=== PATIENT | female | born 1950 | race African-American/Black ===

== ENCOUNTER 2017-05-03 23:12 | Inpatient (IN) ==
[2017-05-04 01:24] LABS: Basophils % 0.4 % (0.0-0.8); Eosinophils # 0.2 10*3/uL (0.0-0.87); Eosinophils % 2.9 % (0.00-10.9); Hematocrit 35.6 VOL% (35.7-47.0); Hemoglobin 12.6 GM/DL (12.0-16.0); Immature Granulocytes % 0.5 %; Immature Granulocytes Absolute 0.04 #; Lymphocytes % 13.1 % (21.3-54.2); Mean Corpuscular HGB Conc 35.4 GM/DL (32-36); Mean Corpuscular Hemoglobin 33 PG (27-34); Mean Platelet Volume 11.7 FL (9.6-12.0); Monocytes # 1.1 10*3/uL (0.11-0.8); Monocytes % 14.2 % (1.7-12.7); Neutrophils # 5.3 10*3/uL (1.4-7.4); Neutrophils % 68.9 % (38.7-73.9); Platelet Count 103 T/CUMM (130-400); Red Blood Count 3.83 MC/CUMM (3.8-5.5); Red Cell Distribution Width 16.7 % (9.3-17.3); White Blood Count 7.7 T/CUMM (4-12)
[2017-05-04 01:47] LABS: Calcium 8.5 MG/DL (8.5-10.1); Magnesium 2.6 MG/DL (1.8-2.4); Osmolality,Calculated 276.8 MOS/KG (273-304); Potassium 3.1 MMOL/L (3.5-5.1)
[2017-05-04] MEDS ORDERED: CLINDAMYCIN INJ 900 MG in PREMIX 1 EACH IV STA (02:18)
[2017-05-04] MEDS ORDERED: LEVOFLOXACIN INJ 250 MG in PREMIX 1 EACH IV STA (02:18)
--- NOTE | 2017-05-04 02:19 | Emergency Department Note ---
I, Tina Puga, am scribing for, and in the presence of, Luis Diaz MD 23:51. IJoe Hans, MD, personally performed the services described in this documentation, ascribed by Tina Puga in my presence, and it is both accurate and complete . Arrival - Arrival Chief Complaint: Shortness of Breath ED Nursing Triage Note: Patient complains of shortness of breath and swelling that has been going on all days. States that she feels like she can't catch her breath. Patient is a dialysis patient and is scheduled for dialysis tomorrow morning. Patient states that she does not feel like dialysis is helping. O2 saturation 100% on room air. History of CAD, [place], HTN, high cholesterol and renal failure. Mode of Arrival: Stretcher Limitations: No Limitations Source: Patient, Family - History of Present Illness HPI Narrative: Pt is a 66 y/o female who ca me to ED by EMS with c/o SOB and swelling in lower extremities that has been ongoing for a while. Pt states that she feels like she can't catch her breath, has orthopnea, ears itching, bilateral hand rash that itching (after having blood transfusion), and little output. Family reports pt eating dirt and is a smoker. Patient is a dialysis patient of 3 years, and is scheduled for dialysis tomorrow morning. Patient states that she does not feel like dialysis is helping. O2 saturation 100% on room air. History of CAD, [place], HTN, high cholesterol and renal failure. Family reports last hospitalization for fluid overload was in 2016. Onset (ago): unknown Consistency: constant Severity: moderate Severity scale (1-10): 6 Quality: aching, fullness Date of Last Menstrual Period: menopause Allergies/Adverse Reactions: Allergies Allergy/AdvReac Type Severity Reaction Status Date / Time No Known Allergies Allergy Verified 12/04/16 06:17 Home Medications: Home Medications Medication Instructions Recorded Confirmed Type RX: Amitriptyline HCl 50 mg PO BEDTIME 09/25/15 12/04/16 History RX: Cetirizine HCl [Cetirizine Tab] 10 mg PO DAILY 09/25/15 12/04/16 History RX: Hydrocodone/Acetaminophen 1 each PO Q6HR PRN 09/25/15 12/04/16 History [Hydrocodon-Acetaminophn 10-325] RX: Insulin Aspart Prot/Asp 70/30 20 unit SUBCUT AC SUPPER 09/25/15 12/04/16 History [NovoLOG Mix 70/30] RX: Insulin Aspart Prot/Asp 70/30 40 unit SUBCUT AC BREAKFAST 09/25/15 12/04/16 History [NovoLOG Mix 70/30] RX: Levothyroxine Tab [Synthroid 25 mcg PO DAILY 09/25/15 12/04/16 History Tab] RX: Lubiprostone [Amitiza] 8 mcg PO BID 09/25/15 12/04/16 History RX: Aspirin [Ecotrin] 81 mg PO DAILY 01/22/16 12/04/16 History RX: Albuterol Sulfate [Ventolin 2 puff INH Q4-6H 03/03/16 12/04/16 History HFA] RX: Simvastatin [Zocor] 10 mg PO DAILY 03/03/16 12/04/16 History Review of System - Review of System 12 point system: reviewed and no additional remarkable complaints except as stated - Review of System Constitutional: Present: other (eats dirt). Absent: fever Head/Ears/Nose/Throat: Present: other (ears itching) Respiratory: Present: respiratory distress Cardiovascular: Present: orthopnea, edema (in both legs, abdomen, and back). Absent: chest pain Gastrointestinal: Absent: abdominal pain, nausea, vomiting Genitourinary female: Absent: dysuria Musculoskeletal: Absent: arm pain, neck pain Skin: Present: rash (both hands) Neurological: Absent: headache Medical,Surgical,& Family Hx - Medical History Cardio: History of: CAD, Hypertension, [place] (1997) Neurology: History of: Cerebrovascular Accident (1998) No history of: Seizures HEENT: History of: Eye Problem (Glasses) No history of: Ear Problem, Dental Problems, HEENT Problems Endocrine: History of: Diabetes Mellitus (IDDM), Thyroid Disorder Rheumatology: History of;: Rheumatoid Arthritis Respiratory: History of: Obstructive Sleep Apnea (CPAP), Respiratory Problems ( SHORTNESS OF BREATH; ?No Flu Vac per daughter) Renal: History of: Dialysis (T TH SAT FRESINUS) Gastrointestinal: History of: GI Problems (CONSTIPATION) Hematology: No history of: Blood Transfusion Reaction (No Transfusions) Other: History of: Miscellaneous Medical Problems (LEFT GRAFT) No history of: Anesthesia Reactions, Cancer - Surgical History HEENT Surgeries: Surgical HX of: Eye Surgery (LASER BILATERAL) Abdominal Surgeries: Surgical HX of: Abdominal Surgery Reproductive Surgeries: Surgical HX of;: Breast Surgery (BX) - Family History Family History: Reports;: Family Diabetes, Family Heart Disease - Social History Smoking Status: Current every day smoker Frequency of Alcohol Use: None Type of Drug Use: None Marital Status: Single Exam Vital Signs: Vital Signs Temperature 97.2 F L 05/03/17 23:12 Pulse Rate 77 05/03/17 23:12 Respiratory Rate 19 05/03/17 23:12 Blood Pressure 139/56 05/03/17 23:12 O2 Sat by Pulse Oximetry 100 05/03/17 23:12 - General General appearance: alert, in no apparent distress - Head Head exam: Present: atraumatic, normocephalic - Eye Eye exam: Present: PERRL, EOMI - ENT ENT exam: Present: mucous membranes moist. Absent: mucous membranes dry - Neck Neck exam: Present: full ROM, other (jugular venous stasis) - Chest Chest inspection: Present: symmetric chest wall rise. Absent: tenderness - Respiratory Respiratory exam: Present: normal lung sounds bilaterally. Absent: accessory muscle use, respiratory distress - Cardiovascular Cardiovascular exam: Present: regular rate, normal rhythm, normal heart sounds - Abdominal Exam Abdominal exam: Present: ascites, other (edema to hips). Absent: tenderness, guarding, rebound - Extremities Exam Extremities exam: Present: full ROM. Absent: tenderness - Neurological Exam Neurological exam: Present: alert, oriented X3, CN II-XII intact. Absent: motor sensory deficit - Psychiatric Psychiatric exam: Present: normal affect, normal mood - Skin Skin exam: Present: warm, dry. Absent: intact (calcification to skin but no infected skin or lesions) Course Course Narrative: The patient was evaluated in the ER with lab work as well as chest x-ray and CT chest PE protocol was also done because of elevated d-dimer. No PEs were seen. Patient had some infiltrates in the right lower lobe and also some evidence of volume overload and she was discussed with the hospitalist for admission for symptomatic volume overload and pneumonia. She was treated with Levaquin and clindamycin in the ER in the meantime. Results - Labs CBC & BMP: 05/04/17 00:53 05/04/17 00:53 Lab Results: I have reviewed the patients labs Labs: Laboratory Tests 05/04/17 05/04/17 05/04/17 00:53 00:53 00:53 WBC 7.7 RBC 3.83 Hgb 12.6 Hct 35.6 L Plt Count 103 L Lymph % (Auto) 13.1 L [place] % (Auto) 14.2 H Lymph # (Auto) 1.0 L [place] # (Auto) 1.1 H D-Dimer, Quantitative 1.5 Sodium 130 L Potassium 3.1 L Chloride 93 L Carbon Dioxide 28 BUN 46 H Creatinine 5.50 H GFR Calculation 8 Glucose 188 H Magnesium 2.6 H Disposition Clinical Impression: Community acquired pneumonia Case discussed with: patient, patient's family Disposition: Still a Patient Condition: Stable Time of Disposition: 02:19
[2017-05-04] MEDS ORDERED: CLINDAMYCIN INJ 50 ML IV ONE (02:49)
--- NOTE | 2017-05-04 04:12 | Hospitalist History & Physical ---
Assessment and Plan - Time spent with patient Time spent with patient: Greater than 30 minutes (1) Community acquired pneumonia Status: Acute Assessment and plan: CT chest PE protocol showed right lower lobe consolidation We will draw blood cultures Patient received Cleocin and Levaquin in the ER We will start patient on Levaquin daily Current Visit: Yes (2) Diabetes mellitus Status: Chronic Assessment and plan: We will draw a Hgb A1c Accu-Cheks before meals and at bedtime with sliding scale insulin Consult dietary for diet education Current Visit: No (3) End stage renal disease on dialysis Status: Acute Assessment and plan: Consult nephrology for dialysis regimen Current Visit: No (4) Hypertension Status: Acute Assessment and plan: Continue home medication regimen Current Visit: No History of Present Illness Chief complaint: Shortness of breath History of present illness: Called to the ER for Ms. De Dios who is a 66 year old female that presents to the emergency department complaining of leg swelling and shortness of breath that started 2 days ago and got worse this afternoon. She also complains of chest pain that started approximately 1 day ago that waxes and wanes. She says that sitting down makes the pain better and walking makes the pain worse. She admits to productive cough with yellow greenish sputum and chills. She denies nausea, vomiting, diarrhea. Upon arrival to the ER she was 100% oxygen saturation on room air and in no obvious distress. She is a dialysis patient with a Wednesday schedule but is unsure who her rn orthopaedic is. The last time she dialyzed was last Wednesday and is unsure of how much fluid was removed. She says for the past week she feels like dialysis has not helped her and she has accumulated more fluid than what has been removed. She had a positive d-dimer and therefore a CT chest with PE protocol was performed which showed right lower lobe consolidation. Patient was given Levaquin and Cleocin in the emergency room. Chest x-ray showed severe cardiomegaly with consolidation to the right lower lobe and calcified hilar or mediastinal lymph nodes that are unchanged compared to a CXR in 2016. She has a history of end-stage renal disease, AL, CVA, hypertension, diabetes, hypothyroidism, COPD, arthritis, pica (dirt), and multiple dialysis grafts placement. She admits to taking all of her medicines as directed but her daughter says she does not like to take medicine and does not take her medications as prescribed. Upon entering the room patient is sitting up in the bed eating [employer] pancakes and sausage with syrup. When asked about her diet she says the only thing she eats is [employer]. We will consult dietary to reiterate the importance of a controlled diet. In the meantime she will be admitted with nephrology consulted for dialysis regimen. Home Medications Medication Instructions Recorded Confirmed Type Amitriptyline HCl 50 mg PO BEDTIME 09/25/15 12/04/16 History Cetirizine HCl [Cetirizine Tab] 10 mg PO DAILY 09/25/15 12/04/16 History Hydrocodone/Acetaminophen 1 each PO Q6HR PRN 09/25/15 12/04/16 History [Hydrocodon-Acetaminophn 10-325] Insulin Aspart Prot/Asp 70/30 20 unit SUBCUT AC SUPPER 09/25/15 12/04/16 History [NovoLOG Mix 70/30] Insulin Aspart Prot/Asp 70/30 40 unit SUBCUT AC BREAKFAST 09/25/15 12/04/16 History [NovoLOG Mix 70/30] Levothyroxine Tab [Synthroid Tab] 25 mcg PO DAILY 09/25/15 12/04/16 History Lubiprostone [Amitiza] 8 mcg PO BID 09/25/15 12/04/16 History Aspirin [Ecotrin] 81 mg PO DAILY 01/22/16 12/04/16 History Albuterol Sulfate [Ventolin HFA] 2 puff INH Q4-6H 03/03/16 12/04/16 History Simvastatin [Zocor] 10 mg PO DAILY 03/03/16 12/04/16 History Allergies Allergy/AdvReac Type Severity Reaction Status Date / Time No Known Allergies Allergy Verified 12/04/16 06:17 Medical,Surgical,& Family Hx - Medical History Cardio: History of: CAD, Hypertension, [place] (1997) Neurology: History of: Cerebrovascular Accident (1998) No history of: Seizures HEENT: History of: Eye Problem (Glasses) No history of: Ear Problem, Dental Problems, HEENT Problems Endocrine: History of: Diabetes Mellitus (IDDM), Thyroid Disorder Rheumatology: History of;: Rheumatoid Arthritis Respiratory: History of: COPD, Obstructive Sleep Apnea (CPAP), Respiratory Problems (SHORTNESS OF BREATH; ?No Flu Vac per daughter) Renal: History of: Dialysis (T TH SAT FRESINUS) Genitourinary: No history of: Problems Gastrointestinal: History of: GI Problems (CONSTIPATION) No history of: Liver Problems Hematology: No history of: Blood Transfusion Reaction (No Transfusions) Other: History of: Miscellaneous Medical Problems (LEFT GRAFT) No history of: Anesthesia Reactions, Cancer - Surgical History HEENT Surgeries: Surgical HX of: Eye Surgery (LASER BILATERAL) Abdominal Surgeries: Surgical HX of: Abdominal Surgery Reproductive Surgeries: Surgical HX of;: Breast Surgery (BX) - Family History Family History: Reports;: Family Cancer (Siblings), Family Diabetes (Mom and siblings), Family Heart Disease (father), Additional Family History (Renal diseasesibling) - Social History Smoking Status: Current every day smoker (Half a pack per day) Frequency of Alcohol Use: None Type of Drug Use: None - Constitutional Constitutional: Absent: chills, fatigue, fever(s), frequent falls, weakness - EENT Nose, mouth and throat: Absent: dysphagia - Cardiovascular Cardiovascular: Present: chest pain with activity, dyspnea, edema. Absent: chest pain at rest - Respiratory Respiratory: Present: cough, dyspnea - Gastrointestinal Gastrointestinal: Absent: abdominal pain, constipation, diarrhea, nausea, vomiting - Musculoskeletal Musculoskeletal: Absent: muscle weakness Exam - Constitutional Vitals: Period Temp Pulse Resp BP Sys/Herrera Pulse Ox Last 24 Hr 97.2 F-97.2 F 77-77 19-19 139-139/54-56 100 General appearance: normal weight, no acute distress - Head Head exam: Present: normal inspection, normocephalic - Eye Eye exam: Present: EOMI, conjunctival injection Pupils: Present: NEIL, normal accommodation - ENT ENT exam: Present: normal exam, normal external ear exam - Neck Neck exam: Present: normal inspection - Respiratory Respiratory exam: Present: rhonchi (Right lower lobe otherwise clear to auscultation. Respirations even and unlabored. Symmetrical rise and fall of chest.). Absent: accessory muscle use, chest wall tenderness - Cardiovascular Cardiovascular exam: Present: regular rate and rhythm - GI/Abdominal GI/Abdominal exam: Present: normal bowel sounds, soft. Absent: firm, tenderness - Extremities Exam Extremities exam: Present: normal inspection, normal capillary refill, full ROM , edema (Bilateral thighs) - Back Exam Back exam: Present: normal inspection - Neurological Exam Neurological exam: Present: alert, oriented X3 (Answers questions appropriately. Makes good eye contact.) - Psychiatric Psychiatric exam: Present: other (Aggravated) - Skin Skin exam: Present: normal color, warm, dry, intact (Diffuse lesions. Left upper arm graft with thrill noted.) Results - Labs CBC & BMP: 05/04/17 00:53 05/04/17 00:53 Lab Results: I have reviewed the past 24 hour labs - EKG EKG results: interpreted by BLAINE
[2017-05-04] MEDS ORDERED: ACETAMINOPHEN 325 MG TABLET PO PRN (05:40)
[2017-05-04] MEDS ORDERED: DEXTROSE 50% 25 GM/50 ML SYRINGE IV PRN (05:40)
[2017-05-04] MEDS ORDERED: GLUCAGON 1 MG VIAL IM PRN (05:40)
[2017-05-04] MEDS ORDERED: NICOTINE 21 MG/24 HR PATCH TRANSDERM PRN (05:40)
[2017-05-04] MEDS ORDERED: ONDANSETRON 4 MG/2 ML VIAL IV PRN (05:40)
--- NOTE | 2017-05-04 06:52 | CT Report ---
Exam: CT chest with contrast, PE study Date: 05/04/2017 Comparison: Chest x-ray 05/03/2017 Reason: Shortness of breath, elevated d-dimer Technique: Axial images of the chest were obtained after administration of 80 cc of IV Omnipaque 350 intravenous contrast. Coronal reformatted images were also acquired. The study was performed per pulmonary embolism protocol. Total DLP: 284.40. This exam was initially interpreted by [facility]. Findings: The heart is enlarged with cardiac fat pads and coronary artery calcifications. No evidence of aortic dissection or pulmonary emboli. Reflux of contrast into the hepatic and portal veins with fatty infiltration of the liver and limited evaluation of the minimal diffuse hypodensities in the periportal location. Diffuse fluid in the soft tissues with coarse calcifications in the breasts. The gallbladder is distended with cortical scarring in the kidneys and ascites. Minimal thickening of the adrenal glands. Calcified granulomata in the liver, spleen, and lungs. No significant chest lymphadenopathy with relative elevation of the right hemidiaphragm.. Inhomogeneous bony trabecular pattern with degenerative changes. Diffuse parenchymal findings in the lung with groundglass opacities, atelectasis, and possible infiltration. No pleural effusions. Impression: No evidence of pulmonary embolism. Cardiomegaly with arterial calcifications including coronary artery calcifications. Findings are consistent with pulmonary edema and anasarca with ascites. Renal atrophy with inhomogeneous bony trabecular pattern in patient with known chronic renal failure. Superimposed atelectasis/infiltration with minimal relative elevation of the right hemidiaphragm. Fatty infiltration of the liver with nonspecific distention of the gallbladder, minimal thickening of the adrenal glands, and at least minimal abdominal ascites. This CT exam was performed using one or more the following dose reduction techniques: Automated exposure control, adjustment of the MA and/or KV according to patient size, or use of iterative reconstruction technique. PROCEDURE INTERPRETED AT [facility] DEPARTMENT OF RADIOLOGY Final Report Signed by: Dr. Marla Thompson
--- NOTE | 2017-05-04 07:40 | Nephrology Consult Note ---
History of Present Illness Chief complaint: Shortness of breath in a patient with ESRD History of present illness: Ms. De Dios is a 66 year old female who dialyzes on a Wednesday basis in [facility], her last dialysis was this past Wednesday. Patient presented to the ER today complaining of shortness of breath. She states this started about 2 weeks ago. The patient has also had a cough productive of brown sputum at times. The patient usually sleeps on the couch but recently tried to sleep in her bed lying flat in could not do so. Patient also has complaints of itching and a rash with lesions popping up all over her body. The patient had a CT scan done yesterday that revealed pulmonary venous congestion and edema as well as some pleural effusion and ascitic fluid. ROS: Head -positive headache ENT - denies sore throat Lymphatics - denies lymphadenopathy Hematology -occasionally has some bright red blood per rectum with constipation Heart - denies chest pain Lungs -positive shortness of breath Abdomen - denies abdominal pain Musculoskeletal -positive arthritis Skin -positive rash Neurology -positive history of stroke General - denies fever, states her daughter thought she felt a little hot last night PE: General: in no acute distress Eyes: Pupils are round and reactive, conjunctivae are clear ENT: Nose is clear, O/P is benign Neck: Supple, no thyromegaly Lymphatics: No cervical, supraclavicular or axillary adenopathy Heart: Regular rate and rhythm, she has 2+ thigh edema Lungs: Clear to auscultation anteriorly, chest expansion symmetric Abdomen: Soft, normoactive bowel sounds, no hepatomegaly Musculoskeletal: No joint erythema or effusions or joint asymmetry Skin: Normal turgor, normal hydration, patient has multiple raised hyperpigmented spots diffusely over her integument some have a chalky whitish material at the center. They measure about 5 mm in size Neuro/Psych: Alert and cooperative with poor insight Home Medications Medication Instructions Recorded Confirmed Type Amitriptyline HCl 50 mg PO BEDTIME 09/25/15 12/04/16 History Cetirizine HCl [Cetirizine Tab] 10 mg PO DAILY 09/25/15 12/04/16 History Hydrocodone/Acetaminophen 1 each PO Q6HR PRN 09/25/15 12/04/16 History [Hydrocodon-Acetaminophn 10-325] Insulin Aspart Prot/Asp 70/30 20 unit SUBCUT AC SUPPER 09/25/15 12/04/16 History [NovoLOG Mix 70/30] Insulin Aspart Prot/Asp 70/30 40 unit SUBCUT AC BREAKFAST 09/25/15 12/04/16 History [NovoLOG Mix 70/30] Levothyroxine Tab [Synthroid Tab] 25 mcg PO DAILY 09/25/15 12/04/16 History Lubiprostone [Amitiza] 8 mcg PO BID 09/25/15 12/04/16 History Aspirin [Ecotrin] 81 mg PO DAILY 01/22/16 12/04/16 History Albuterol Sulfate [Ventolin HFA] 2 puff INH Q4-6H 03/03/16 12/04/16 History Simvastatin [Zocor] 10 mg PO DAILY 03/03/16 12/04/16 History Allergies Allergy/AdvReac Type Severity Reaction Status Date / Time No Known Allergies Allergy Verified 12/04/16 06:17 Medical,Surgical,& Family Hx - Medical History Cardio: History of: CAD, Hypertension, [place] (1997) Neurology: History of: Cerebrovascular Accident (1998) No history of: Seizures HEENT: History of: Eye Problem (Glasses) No history of: Ear Problem, Dental Problems, HEENT Problems Endocrine: History of: Diabetes Mellitus (IDDM), Thyroid Disorder Rheumatology: History of;: Rheumatoid Arthritis Respiratory: History of: COPD, Obstructive Sleep Apnea (CPAP), Respiratory Problems (SHORTNESS OF BREATH; ?No Flu Vac per daughter) Renal: History of: [facility] Genitourinary: No history of: Problems Gastrointestinal: History of: GI Problems (CONSTIPATION) No history of: Liver Problems Hematology: No history of: Blood Transfusion Reaction (No Transfusions) Other: History of: Miscellaneous Medical Problems (LEFT GRAFT) No history of: Anesthesia Reactions, Cancer - Surgical History HEENT Surgeries: Surgical HX of: Eye Surgery (LASER BILATERAL) Abdominal Surgeries: Surgical HX of: Abdominal Surgery Reproductive Surgeries: Surgical HX of;: Breast Surgery (BX) - Family History Family History: Reports;: Family Cancer (Siblings), Family Diabetes (Mom and siblings), Family Heart Disease (father), Additional Family History (Renal diseasesibling) - Social History Smoking Status: Current every day smoker (Half a pack per day) Frequency of Alcohol Use: None Type of Drug Use: None Exam - Vital Signs Vital signs: Period Temp Pulse Resp BP Sys/Herrera Pulse Ox Last 24 Hr 97.0 F-97.2 F 77-77 19-20 130-139/54-58 94-100 Results - Labs CBC & BMP: 05/04/17 00:53 05/04/17 00:53 Assessment and Plan (1) Community acquired pneumonia Status: Acute Assessment and plan: Chest x-ray looks like she may have right lower lobe infiltrate I agree with IV antibiotics Current Visit: Yes (2) Volume overload Status: Acute Assessment and plan: We will plan on dialyzing the patient a few days in a row to try and catch up to some of her excess fluid Current Visit: Yes (3) Ascites Status: Acute Current Visit: Yes (4) Skin rash Status: Acute Assessment and plan: This is been a chronic condition she is developed since dialyzing, it may be some calcium phosphorus depositions coming through her skin Current Visit: Yes (5) End stage renal disease on dialysis Status: Acute Current Visit: No (6) Hypertension Status: Acute Current Visit: No (7) Tobacco abuse Status: Acute Current Visit: No (8) Diabetes mellitus Status: Chronic Current Visit: No
--- NOTE | 2017-05-04 07:43 | EKG Report ---
Stationary ECG Study [facility] ER Test Date: 05/03/2017 11:19:36 PM Pat Name: SANDEEP MORRISON Department: Room: 219 Gender: F [employer]om[employer]ley[employer]: : 1950 Requested by: Luis Diaz Order Number: [id number] Reading MD: BRAD NUNN Intervals [place] Rate: 77 P: -82 KS: 102 QRS: 92 QRSD: 104 T: 94 QT: 401 QTc: 433 Interpretive Statements NORMAL SINUS RHYTHM CONSIDER ANTEROSEPTAL INFARCT OR LEAD PLACEMENT Electronically Signed On 05-04-17 14:01:33 CDT by BRAD NUNN [email or web address]
--- NOTE | 2017-05-04 07:57 | XRay Report ---
Portable chest Date: 05/03/2017 Clinical history: Shortness of breath Comparison: 03/06/2016 Technique: Portable AP sitting chest Findings: The heart appears larger in size with calcification in the aortic knob. Multiple calcified nodes are identified with progressive parenchymal findings especially at the right lung base. Persistent relative elevation of the right hemidiaphragm. Interval removal of the venous access catheter. Impression: Progressive cardiomegaly with increased atelectasis/infiltration/edema at the lung bases with relative elevation of the right hemidiaphragm. PROCEDURE INTERPRETED AT [facility] DEPARTMENT OF RADIOLOGY Final Report Signed by: Dr. Marla Thompson
--- NOTE | 2017-05-04 09:07 | Event Note ---
Ms. Contreras was admitted this morning with the leg swelling and shortness of breath cough. She has been on dialysis but do not know how much fluid being pulled she has weight gain. Which she mentioned to me her dry weight has to be around 140 pound and she is at 161 pound now. There is no fever but noted to have possible infiltrate on the right side. She has been started on antibiotics. Renal has been consulted and plan to have dialysis to address the fluids. I does see she has a bilateral lower leg edema and some ascites and effusion unchanged x-ray and CT. Because of end-stage renal disease status dialysis only way addressed fluid. I will get the echocardiogram to evaluate cardiac function. She also has multiple skin nodules. I am not sure these are calcium deposits. She is not on any phosphate binders I will check the renal panel to see phosphorus level. Amazingly her hemoglobin / hematocrit is above target if she is on MARIA C. I do not have access to her medication she is given a dialysis unit. I will defer this to renal service
[2017-05-04] MEDS: PANTOPRAZOLE 40 MG TABLET PO SCH (09:32)
[2017-05-04] MEDS: ENOXAPARIN 30 MG/0.3 ML SYRINGE SUBCUT SCH (09:33)
[2017-05-04] MEDS: INSULIN LISPRO 100 UNIT/ML SUBCUT SCH ×2 (09:33→16:17)
[2017-05-04] MEDS: LIDOCAINE/PRILOCAINE CREAM 5 GM TUBE TOP PRN (10:54)
--- NOTE | 2017-05-04 11:22 | Dialysis Note ---
Dialysis Note - Dialysis Note Ms. Martinez is seen on hemodialysis. She is itching and this is been going on chronically. She is not short of breath but is tolerating hemodialysis well
--- NOTE | 2017-05-04 22:01 | ECHO Report ---
Marla De Dios Exam Date: 05/04/2017 10:02 Referring Physician: Technologist: Donna Ojeda Age: 66 Ht (in): 61 Wt (lb): 161 Gender: F Exam Location: [facility] Echo Indications: SOB, edema, cough, ESRD, IDDM, COPD, KASI, smoker BP: 130 / 58 HR: Rhythm: Sinus Technical Quality: IMPRESSIONS Left ventricular ejection fraction is estimated at 25 %.. Mild bilateral atrial enlargement. Mildly thickened mitral valve with mild to moderate mitral regurgitation. Moderate aortic valve regurgitation. Moderate tricuspid valve regurgitation. Mild pulmonary valve regurgitation. MEASUREMENTS (Male / Female) Normal Values 2D ECHO LV Diastolic Diameter PLAX 4.8 cm 4.2 - 5.9 / 3.9 - 5.3 cm LV Systolic Diameter PLAX 4.4 cm LV Fractional Shortening PLAX 8.2 % IVS Diastolic Thickness 1.0 cm 0.6 - 1.0 / 0.6 - 0.9 cm LVPW Diastolic Thickness 0.9 cm 0.6 - 1.0 / 0.6 - 0.9 cm Aortic Root Diameter 2.3 cm LA Systolic Diameter LX 4.3 cm 3.0 - 4.0 / 2.7 - 3.8 cm DOPPLER TR Peak Velocity 330.0 cm/s TR Peak Gradient 43.6 mmHg FINDINGS Left Ventricle Normal left ventricular cavity size. Left ventricular ejection fraction is estimated at 25 %. There is global hypokinesis. Right Ventricle Normal right ventricular size. Right Atrium The right atrium is mildly enlarged. Left Atrium The left atrium is mildly enlarged. Mitral Valve Mildly thickened mitral valve with mild to moderate mitral regurgitation. Aortic Valve Mild aortic valve sclerosis. Moderate aortic valve regurgitation. Tricuspid Valve Morphologically normal tricuspid valve. Moderate tricuspid valve regurgitation. Tricuspid regurgitation velocities suggest a PAP of 50 mmHg. Pulmonic Valve Morphologically normal pulmonic valve. Mild pulmonary valve regurgitation. Pericardium No pericardial effusion. Aorta Normal size aortic root and proximal ascending aorta. Mauricio Nation (Electronically Signed) Final Date: 04 May 2017 22:00
--- NOTE | 2017-05-05 07:23 | Nephrology Progress Note ---
Nephrology - PN: Subj Interval history: Patient states she is breathing better today. Review of [id number] patient continues to have itching Physical exam general the patient is in no acute distress, she has 1+ thigh edema Assessment/plan 1. End-stage renal disease-we will plan on dialysis today for fluid removal 2. Diabetes mellitus 3. Pneumonia we will continue IV antibiotics 4. Cardiomyopathy-patient has an ejection fraction of 25% as well as significant valvular leakage in all 4 of her heart valves making thrice weekly ultrafiltration very difficult in this patient who has a tendency to cramp on dialysis with ultrafiltration. Exam (PN)-Nephrology - Vital Signs Vital signs: Period Temp Pulse Resp BP Sys/Herrera Pulse Ox Last 24 Hr 97.2 F-98.1 F 69-78 18-22 122-149/51-76 93-98 - Lab 05/04/17 00:53 05/04/17 00:53 Most recent lab results Calcium 8.5 MG/DL (8.5-10.1) 05/04/17 00:53 Magnesium 2.6 MG/DL (1.8-2.4) H 05/04/17 00:53 Assessment and Plan (1) Community acquired pneumonia Status: Acute Assessment and plan: Chest x-ray looks like she may have right lower lobe infiltrate I agree with IV antibiotics Current Visit: Yes (2) Volume overload Status: Acute Assessment and plan: We will plan on dialyzing the patient a few days in a row to try and catch up to some of her excess fluid Current Visit: Yes (3) Ascites Status: Acute Current Visit: Yes (4) Skin rash Status: Acute Assessment and plan: This is been a chronic condition she is developed since dialyzing, it may be some calcium phosphorus depositions coming through her skin Current Visit: Yes (5) End stage renal disease on dialysis Status: Acute Current Visit: No (6) Hypertension Status: Acute Current Visit: No (7) Tobacco abuse Status: Acute Current Visit: No (8) Diabetes mellitus Status: Chronic Current Visit: No
[2017-05-05 07:24] LABS: Albumin 2.5 G/DL (3.4-5.0); Calcium 8.6 MG/DL (8.5-10.1); Osmolality,Calculated 279.2 MOS/KG (273-304); Phosphorous 4.2 MG/DL (2.5-4.9); Potassium 3.6 MMOL/L (3.5-5.1)
[2017-05-05] MEDS: LIDOCAINE/PRILOCAINE CREAM 5 GM TUBE TOP PRN (08:00)
[2017-05-05] MEDS: INSULIN LISPRO 100 UNIT/ML SUBCUT SCH ×2 (10:22→16:27)
--- NOTE | 2017-05-05 11:14 | Dialysis Note ---
Dialysis Note - Dialysis Note Patient seen on dialysis she is tolerating the procedure. Blood pressures 129/ 63. Cardiovascular is regular rate. Lungs are clear to auscultation. Abdomen is soft. Continue with schedule hemodialysis.
[2017-05-05] MEDS: PANTOPRAZOLE 40 MG TABLET PO SCH (13:48)
[2017-05-05] MEDS: ENOXAPARIN 30 MG/0.3 ML SYRINGE SUBCUT SCH (13:48)
--- NOTE | 2017-05-05 15:32 | Hospitalist Progress Note ---
Assessment and Plan (1) CHF (congestive heart failure) Status: Acute Assessment and plan: Patient seemed to have his acute CHF exacerbation which apparently can be managed with dialysis only I am not sure what is her baseline cardiac function and her echo noted to have a LV ejection fraction at 25% with moderate AR and TR. Also reported s global hypokinesis. I will start on beta-tanya and losartan and consult cardiology Current Visit: Yes (2) Community acquired pneumonia Status: Acute Assessment and plan: We will continue antibiotics patient is afebrile Current Visit: Yes (3) End stage renal disease on dialysis Status: Acute Current Visit: No (4) Diabetes mellitus Status: Chronic Assessment and plan: We will continue to monitor blood sugar and provide coverage with the short- acting insulin as needed. Her home insulin regimen reviewed and apparently she is on 70/30 insulin twice a day I will address this tomorrow after for a few more readings and check hemoglobin A1c Current Visit: No Hospitalist: Subjective Interval history: Ms. Martinez is 66-year-old female with multiple comorbidities including end-stage renal dialysis and she is on TTS schedule. She was admitted on 05/04/2017 with the complaint of shortness of breath and swelling over last 2 days prior to admission she has some productive cough and sputum with chills and chest pain. She was about 20 point weight gain according to what she gave the dry weight. She had x-ray showed fever cardiomegaly with consulted consolidation right lower lobe CT was negative for prior PE and again mention right lower lobe consolidation. she was started on antibiotics and all renal consulted she is dialyzed yesterday and again today to address volume. She also has some skin nodules. Patient went for dialysis 2 days in a row and states her abdominal distention is significantly better and the her dyspnea better she is afebrile Exam - Constitutional Vitals: Period Temp Pulse Resp BP Sys/Herrera Pulse Ox Last 24 Hr 96.7 F-98.1 F 69-82 18-22 122-149/43-76 93-97 General appearance: no acute distress, over weight - Respiratory Respiratory exam: Present: decreased breath sounds (Right lower lobe). Absent: accessory muscle use, rales, rhonchi - Cardiovascular Cardiovascular exam: Present: regular rate and rhythm. Absent: tachycardia - GI/Abdominal GI/Abdominal exam: Present: normal bowel sounds, soft. Absent: tenderness - Extremities Exam Extremities exam: Present: edema (Mild edema lower extremities noted) - Neurological Exam Neurological exam: Present: alert, oriented X3 Results - Labs CBC & BMP: 05/04/17 00:53 05/05/17 06:17
[2017-05-06] MEDS: INSULIN LISPRO 100 UNIT/ML SUBCUT SCH ×2 (08:00→16:32)
[2017-05-06] MEDS: LIDOCAINE/PRILOCAINE CREAM 5 GM TUBE TOP PRN (08:28)
[2017-05-06] MEDS ORDERED: diphenhydrAMINE CAP 25 MG CAPSULE PO ONE (10:22)
[2017-05-06] MEDS ORDERED: MOISTURIZING CREAM (EUCERIN) 113 GM JAR TOP PRN (10:33)
--- NOTE | 2017-05-06 10:33 | Nephrology Progress Note ---
Nephrology - PN: Subj Interval history: Patient states her swelling has recurred overnight. She denies shortness of breath. Review of systems integument-she continues to complain of itching Physical exam general the patient is chronically ill-appearing, she seen on dialysis and tolerating this well. Extremities reveal 2+ thigh edema Assessment/plan: 1. End-stage renal disease-we will continue HD unchanged plan on dialyzing her tomorrow and Wednesday to try and catch up to her volume overload. 2. Cardiomyopathy 3. Pruritus-we will order some Eucerin cream/lotion and also Benadryl as needed 4. Pneumonia continue antibiotics Exam (PN)-Nephrology - Vital Signs Vital signs: Period Temp Pulse Resp BP Sys/Herrera Pulse Ox Last 24 Hr 96.7 F-98.7 F 76-79 18-22 101-146/43-65 95-98 - Lab 05/04/17 00:53 05/05/17 06:17 Most recent lab results Calcium 8.6 MG/DL (8.5-10.1) 05/05/17 06:17 Phosphorus 4.2 MG/DL (2.5-4.9) 05/05/17 06:17 Magnesium 2.6 MG/DL (1.8-2.4) H 05/04/17 00:53 Assessment and Plan (1) Community acquired pneumonia Status: Acute Assessment and plan: Chest x-ray looks like she may have right lower lobe infiltrate I agree with IV antibiotics Current Visit: Yes (2) Volume overload Status: Acute Assessment and plan: We will plan on dialyzing the patient a few days in a row to try and catch up to some of her excess fluid Current Visit: Yes (3) Ascites Status: Acute Current Visit: Yes (4) Skin rash Status: Acute Assessment and plan: This is been a chronic condition she is developed since dialyzing, it may be some calcium phosphorus depositions coming through her skin Current Visit: Yes (5) End stage renal disease on dialysis Status: Acute Current Visit: No (6) Hypertension Status: Acute Current Visit: No (7) Tobacco abuse Status: Acute Current Visit: No (8) Diabetes mellitus Status: Chronic Current Visit: No
[2017-05-06] MEDS ORDERED: diphenhydrAMINE CAP 25 MG CAPSULE PO PRN ×2 (15:00→15:52)
[2017-05-06] MEDS: LOSARTAN 25 MG TABLET PO SCH (15:44)
[2017-05-06] MEDS: ASPIRIN 325 MG TABLET PO SCH (15:45)
[2017-05-06] MEDS: METOPROLOL SUCCINATE XL 25 MG TABLET PO SCH (15:45)
[2017-05-06] MEDS: PANTOPRAZOLE 40 MG TABLET PO SCH (15:45)
[2017-05-06] MEDS: ENOXAPARIN 30 MG/0.3 ML SYRINGE SUBCUT SCH (15:46)
--- NOTE | 2017-05-06 15:51 | Hospitalist Progress Note ---
Assessment and Plan (1) CHF (congestive heart failure) Status: Chronic Assessment and plan: Patient seemed to have his acute CHF exacerbation which apparently can be managed with dialysis only I am not sure what is her baseline cardiac function and her echo noted to have a LV ejection fraction at 25% with moderate AR and TR. Also reported s global hypokinesis. I will start on beta-tanya and losartan and consult cardiology Current Visit: Yes (2) Community acquired pneumonia Status: Acute Assessment and plan: We will continue antibiotics patient is afebrile Current Visit: Yes (3) End stage renal disease on dialysis Status: Chronic Current Visit: Yes (4) Diabetes mellitus Status: Chronic Assessment and plan: We will continue to monitor blood sugar and provide coverage with the short- acting insulin as needed. Her home insulin regimen reviewed and apparently she is on 70/30 insulin twice a day I will address this tomorrow after for a few more readings and check hemoglobin A1c Current Visit: Yes Hospitalist: Subjective Interval history: Patient received dialysis again today. Continued to have a breathing improvement but has itching all over. She still needs developed swelling when he sits up and has dependent extremities Exam - Constitutional Vitals: Results - Labs CBC & BMP: 05/04/17 00:53 05/05/17 06:17
--- NOTE | 2017-05-06 15:59 | Hospitalist Progress Note ---
Assessment and Plan (1) CHF (congestive heart failure) Status: Chronic Assessment and plan: Echo with global hypokinesia and poor ejection fraction cardiology looking at the patient and was started on metoprolol and losartan. Volume being managed with the dialysis Current Visit: Yes (2) Community acquired pneumonia Status: Acute Assessment and plan: On antibiotic patient is afebrile Current Visit: Yes (3) End stage renal disease on dialysis Status: Chronic Assessment and plan: On hemodialysis. Patient has been on daily dialysis for volume management renal following Current Visit: Yes (4) Diabetes mellitus Status: Chronic Assessment and plan: Noted patient has a blood sugar has been elevated will continue monitor and start on her home insulin at a lower dose to avoid hypoglycemia . Insulin dose has to be adjusted for blood sugar readings as needed Current Visit: Yes (5) Itching Status: Acute Assessment and plan: Patient had dry skin will give Benadryl at night for itching and also will provide lotion for the dry skin Current Visit: Yes Hospitalist: Subjective Interval history: Patient received dialysis again today. Continued to have a breathing improvement but has itching all over. She still needs developed swelling when he sits up and has dependent extremities Exam - Constitutional Vitals: Period Temp Pulse Resp BP Sys/Herrera Pulse Ox Last 24 Hr 96.8 F-98.7 F 75-79 18-22 101-136/50-65 95-98 General appearance: no acute distress, over weight - Respiratory Respiratory exam: Present: decreased breath sounds (Right lower lobe). Absent: accessory muscle use, rales, rhonchi - Cardiovascular Cardiovascular exam: Present: regular rate and rhythm. Absent: tachycardia - GI/Abdominal GI/Abdominal exam: Present: normal bowel sounds, soft. Absent: tenderness - SKIN Exam : dry with itching myocardial - Extremities Exam Extremities exam: Present: edema (Mild edema lower extremities noted) - Neurological Exam Neurological exam: Present: alert, oriented X3 Results - Labs CBC & BMP: 05/04/17 00:53 05/05/17 06:17 Lab Results: I have reviewed the past 24 hour labs
[2017-05-06] MEDS ORDERED: LOTION (LUBRIDERM) 177 ML BOTTLE TOP SCH (16:00)
[2017-05-06] MEDS: INSULIN NPH/REGULAR 70/30 100 UNIT/ML SUBCUT SCH (16:55)
[2017-05-06] MEDS: LEVOFLOXACIN INJ 250 MG in PREMIX 1 EACH IV SCH (16:57)
[2017-05-06] MEDS: ALBUTEROL 2.5 MG/3 ML NEB RESP TX SCH ×3 (17:55→23:38)
[2017-05-06] MEDS: LOTION (KERI) 236 ML BOTTLE TOP SCH (18:53)
--- NOTE | 2017-05-06 21:55 | Cardiology Consult Note ---
Bruna Potter April RN, am scribing for, and in the presence of, Lucian Singh MD 21:54. Assessment and Plan - Time spent with patient Time spent with patient: Greater than 30 minutes (Due to assessment, planning, documentation, medication review) (1) CHF (congestive heart failure) Status: Chronic Current Visit: Yes (2) Community acquired pneumonia Status: Acute Current Visit: Yes (3) End stage renal disease on dialysis Status: Chronic Current Visit: Yes (4) Diabetes mellitus Status: Chronic Current Visit: Yes History of Present Illness - Data of Consult Patient: known to practice within the last 3 years Consult date: 05/05/17 Requesting Physician: Abdulaziz Carr - Consult Narrative Reason for consult: CHF History of present illness: 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 Jones Ms. De Dios is a 66 year old female who has seen Dr. Jones in the past with a history of HI, hypertension, CVA, IDDM, thyroid disorder, COPD, KASI ( reports using CPAP occasionally), end-stage renal disease (dialyzes Wednesday). She is a poor historian so much of this history is obtained from the chart. She tells me she has never had any surgeries although there are several listed including laser eye surgery, abdominal surgery, and breast biopsy. She cannot tell me about her family history. Echocardiogram done Dr. Jones's office December 06, 2015 with ejection fraction of 20-25%. She had stress test on December 04, [address] Jones for him to clear her for AV graft placement. He did not feel she had any ischemia at the time, but it did show some scarring. He wrote her low surgical risk at that time. He also recommended she start on carvedilol 3.125 p.o. twice daily (this is not listed as a home meds so I am not sure if she did not start it or if it was stopped at some point). I am unable to find any records regarding her HI, but it is noted in Dr. Jones's note that she had one in the past. She currently smokes, stating a pack of cigarettes lasts her about 3 days. She lives alone and does use a cane for assistance with ambulation. Ms. De Dios is being seen while on dialysis. She tells me that she came to the hospital several days ago because she was swelling all over and short of breath. She says this been going on for several months. Looking at the H&P, she told Dr. Bryant this was started 2 days prior to admission. She also told them that she had some chest pain. She told me she had not had any chest pain. He does report that she has not missed any of her dialysis days. She had a positive d-dimer and CT of the chest was negative for pulmonary embolus, but did show a right lower lobe consolidation. IV antibiotics were started. BNP was elevated greater than 5000 on admission. BUN was 46 and creatinine was 5.5. Potassium is low at 3.1. Labs were rechecked yesterday and kidney function and potassium were improved. Echocardiogram done this admission with ejection fraction of 25%, moderate aortic valve regurgitation, moderate tricuspid valve regurgitation, and mild pulmonary valve regurgitation. EKG on admission showed sinus rhythm with heart rate of 77. She has been started on losartan 25 mg daily as well as Toprol-XL 25 mg daily. She presently denies any chest pain or shortness of breath. Her biggest complaint at the time that I am seeing her is that she is itching all over. She says she has asked for Benadryl and her nurse is supposed to be bringing it to her. Vital signs are stable, blood pressure this morning 120-57. O2 sat on room air 96%. Cardiology addendum Patient examined chart reviewed and discussed with patient several family members. Status post infarction 1997. Treated medically. Patient never had a cardiac cath. Chronic renal failure on hemodialysis every Wednesday and Wednesday for 4 hours at the [place] [facility] Longtime diabetic Admitted now with right lower lobe pneumonia and congestive heart failure Chest x-ray shows massive cardiomegaly with CHF and right lower lobe pneumonia. BNP level greater than 5000 Active smoker, close to 1 pack per day Pica syndrome patient eats michael Obstructive sleep apnea, noncompliant with CPAP Echo Doppler done May 04, 2017 ejection fraction 25% with moderate biatrial enlargement, moderate AI, normal RV function, moderate TR PA pressure 50 with no effusion Abnormal but stable nuclear stress test December 04, 2015 and office showing scar but no ischemia and and severe LV dysfunction Denies angina but has chronic dyspnea Plan Patient needs CPAP mask nightly. Consult Dr. Fuentes No smoking Watch fluid intake. Patient has clear dietary indiscretion per children Medical therapy CC: Abdulaziz Carr MD - Home Medications and Allergies Home Medications: Home Medications Medication Instructions Recorded Confirmed Type Insulin Aspart Prot/Asp 70/30 20 unit SUBCUT AC SUPPER 09/25/15 05/04/17 History [NovoLOG Mix 70/30] Insulin Aspart Prot/Asp 70/30 40 unit SUBCUT AC BREAKFAST 09/25/15 05/04/17 History [NovoLOG Mix 70/30] Levothyroxine Tab [Synthroid Tab] 25 mcg PO DAILY 09/25/15 05/04/17 History Albuterol Sulfate [Ventolin HFA] 2 puff INH Q4H 03/03/16 05/04/17 History Allergies/Adverse Reactions: Allergies Allergy/AdvReac Type Severity Reaction Status Date / Time No Known Allergies Allergy Verified 12/04/16 06:17 - Constitutional Constitutional: Present: as per HPI - Cardiovascular Cardiovascular: Present: dyspnea, dyspnea on exertion, edema, lightheadedness, palpitations. Absent: chest pain at rest, chest pain with activity, diaphoresis , radiating jaw, neck or arm pain, orthopnea - Respiratory Respiratory: Present: cough, dyspnea, dyspnea on exertion. Absent: hemoptysis, wheezing - Gastrointestinal Gastrointestinal: Present: nausea. Absent: abdominal pain, constipation, diarrhea, hematemesis, hematochezia, melena, vomiting - Genitourinary Genitourinary: Absent: dysuria, hematuria - Neurological Neurological: Present: dizziness. Absent: frequent falls - Psychiatric Psychiatric: Present: anxiety. Absent: depression Medical,Surgical,& Family Hx - Medical History Cardio: History of: CAD, Hypertension, HI (1997) Neurology: History of: Cerebrovascular Accident (1998) HEENT: History of: Eye Problem (Glasses) Endocrine: History of: Diabetes Mellitus (IDDM), Thyroid Disorder Rheumatology: History of;: Rheumatoid Arthritis Respiratory: History of: COPD, Obstructive Sleep Apnea (CPAP), Respiratory Problems (SHORTNESS OF BREATH; ?No Flu Vac per daughter) Renal: History of: Dialysis (T TH SAT FRESINUS) Gastrointestinal: History of: GI Problems (CONSTIPATION) Other: History of: Miscellaneous Medical Problems (LEFT GRAFT) - Surgical History HEENT Surgeries: Surgical HX of: Eye Surgery (LASER BILATERAL) Abdominal Surgeries: Surgical HX of: Abdominal Surgery Reproductive Surgeries: Surgical HX of;: Breast Surgery (BX) - Family History Family History: Reports;: Family Cancer (Siblings), Family Diabetes (Mom and siblings), Family Heart Disease (father), Additional Family History (Renal diseasesibling) - Social History Smoking Status: Current every day smoker Have you smoked in the last 12 months: Yes Time spent discussing smoking cessation with patient: 3 to 10 minutes Frequency of Alcohol Use: None Type of Drug Use: None Lives With:: Alone Functional capacity: uses cane/walker Physical Examination Vital Signs Temp Pulse Resp BP Pulse Ox 97.2 F L 77 19 139/56 100 05/03/17 23:12 05/03/17 23:12 05/03/17 23:12 05/03/17 23:12 05/03/17 23:12 General: Present: No Apparent Distress, Other (Chronically ill-appearing) HEENT: Present: PERRL, Mucus Membranes Dry Neck: Present: Supple Neck, Midline Trachea, No Bruit Cardiac: Present: Reg Rate and Rhythm. Absent: Tachycardia, Bradycardia Lungs: Present: Decreased Breath Sounds, No Wheeze, Rales, Rhonchi Neuro: Absent: Resting Tremor, Essential Tremor Abdomen: Present: Soft, Active Bowel Sounds, Non-Tender. Absent: Distended Skin: Present: Other (Skin nodules noted, complains of generalized itching) Musculoskeletal: Present: No Pain, Normal Range of Motion Extremities: Present: Normal Upper Extr. Pulses, Normal Lower Extr. Pulses, Edema (Brawny edema) Result/EKG - Labs CBC & BMP: 05/04/17 00:53 05/05/17 06:17 Lab Results: I have reviewed the past 24 hour labs Labs: Laboratory Results - last 24 hr 05/05/17 05/05/17 05/05/17 12:29 15:51 18:29 POC Glucose 161 H 199 H 218 H 05/05/17 05/06/17 05/06/17 20:53 04:27 07:27 POC Glucose 265 H 242 H 237 H - Diagnostic Findings Procedure: Chest x-ray: report reviewed by me - EKG EKG results: interpreted by me EKG shows: sinus rhythm Samantha Potter Thomas, MD, personally performed the services described in this documentation, ascribed by Laya Mcfarland RN in my presence, and it is both accurate and complete .
[2017-05-07] MEDS: ALBUTEROL 2.5 MG/3 ML NEB RESP TX SCH ×6 (02:33→23:04)
--- NOTE | 2017-05-07 07:15 | Nephrology Progress Note ---
Nephrology - PN: Subj Interval history: Patient denies shortness of breath. Review of systems GI she denies nausea or vomiting, integument-patient states her itching seemed to improve with the lotion application last night and also with Benadryl on occasion, cardiac- patient states her abdominal wall tissue is much softer than it was when she first came in the hospital Physical exam general the patient is in no acute distress, she has continued 1-2 + pitting thigh edema, abdomen-soft, her subcu tissue is soft as well Assessment/plan 1. End-stage renal disease-we will plan on dialyzing the patient again today for fluid removal, she could possibly go home after dialysis today to follow-up with dialysis as an outpatient on Wednesday. I plan on returning her to her regularly scheduled TTS dialysis schedule after this present week. I have counseled her at some length about trying to decrease her sodium and fluid intake. 2. Cardiomyopathy-this patient has a ejection fraction of 25% and valvular heart disease that limits our ability to keep up with her fluid intake as an outpatient. 3. Pneumonia 4. Uremic pruritus-continue Eucerin lotion and Benadryl as needed, my hope was that daily dialysis this week may help this as well but it does not seem to have made much difference. Exam (PN)-Nephrology - Vital Signs Vital signs: Period Temp Pulse Resp BP Sys/Herrera Pulse Ox Last 24 Hr 96.8 F-97.4 F 59-81 14-22 117-138/48-76 90-99 - Lab 05/04/17 00:53 05/05/17 06:17 Most recent lab results Calcium 8.6 MG/DL (8.5-10.1) 05/05/17 06:17 Phosphorus 4.2 MG/DL (2.5-4.9) 05/05/17 06:17 Magnesium 2.6 MG/DL (1.8-2.4) H 05/04/17 00:53 Assessment and Plan (1) Community acquired pneumonia Status: Acute Assessment and plan: Chest x-ray looks like she may have right lower lobe infiltrate I agree with IV antibiotics Current Visit: Yes (2) Volume overload Status: Acute Assessment and plan: We will plan on dialyzing the patient a few days in a row to try and catch up to some of her excess fluid Current Visit: Yes (3) Ascites Status: Acute Current Visit: Yes (4) Skin rash Status: Acute Assessment and plan: This is been a chronic condition she is developed since dialyzing, it may be some calcium phosphorus depositions coming through her skin Current Visit: Yes (5) End stage renal disease on dialysis Status: Chronic Current Visit: Yes (6) Hypertension Status: Acute Current Visit: No (7) Tobacco abuse Status: Acute Current Visit: No (8) Diabetes mellitus Status: Chronic Current Visit: Yes
[2017-05-07] MEDS ORDERED: INSULIN NPH/REGULAR 70/30 100 UNIT/ML SUBCUT SCH (07:30)
[2017-05-07] MEDS: INSULIN LISPRO 100 UNIT/ML SUBCUT SCH ×2 (08:07→16:56)
[2017-05-07] MEDS: LIDOCAINE/PRILOCAINE CREAM 5 GM TUBE TOP PRN (08:15)
[2017-05-07] MEDS: PANTOPRAZOLE 40 MG TABLET PO SCH (10:25)
[2017-05-07] MEDS: LOSARTAN 25 MG TABLET PO SCH (10:25)
[2017-05-07] MEDS: ASPIRIN 325 MG TABLET PO SCH (10:25)
[2017-05-07] MEDS: LEVOTHYROXINE 25 MCG TABLET PO SCH (10:25)
[2017-05-07] MEDS: METOPROLOL SUCCINATE XL 25 MG TABLET PO SCH (10:25)
[2017-05-07] MEDS: ENOXAPARIN 30 MG/0.3 ML SYRINGE SUBCUT SCH (10:28)
[2017-05-07 11:44] LABS: Basophils % 0.4 % (0.0-0.8); Eosinophils # 0.2 10*3/uL (0.0-0.87); Eosinophils % 2.8 % (0.00-10.9); Hematocrit 35.3 VOL% (35.7-47.0); Immature Granulocytes % 0.3 %; Immature Granulocytes Absolute 0.02 #; Lymphocytes # 0.7 10*3/uL (1.4-4.0); Lymphocytes % 9.5 % (21.3-54.2); Mean Corpuscular Hemoglobin 32 PG (27-34); Mean Corpuscular Volume 95.1 FL (87-102); Mean Platelet Volume 13.2 FL (9.6-12.0); Monocytes # 0.7 10*3/uL (0.11-0.8); Monocytes % 9.9 % (1.7-12.7); Neutrophils # 5.5 10*3/uL (1.4-7.4); Neutrophils % 77.1 % (38.7-73.9); Red Blood Count 3.71 MC/CUMM (3.8-5.5); Red Cell Distribution Width 17.2 % (9.3-17.3); White Blood Count 7.2 T/CUMM (4-12)
[2017-05-07 11:51] LABS: Platelet Count 76 T/CUMM (130-400)
[2017-05-07 12:08] LABS: Hypochromasia 1+
[2017-05-07 12:09] LABS: Platelet Estimate Decreased; Target Cells Few
[2017-05-07 12:22] LABS: Albumin 2.7 G/DL (3.4-5.0); Bilirubin,Total 2.3 MG/DL (0.2-1.0); Calcium 8.9 MG/DL (8.5-10.1); Osmolality,Calculated 271.2 MOS/KG (273-304); Potassium 3.4 MMOL/L (3.5-5.1); Total Protein 7.7 G/DL (6.4-8.3)
--- NOTE | 2017-05-07 13:19 | Cardiology Progress Note ---
IBruna April, RN, am scribing for, and in the presence of, Lucian Singh MD 13:18. Assessment and Plan (1) CHF (congestive heart failure) Status: Chronic Current Visit: Yes (2) Community acquired pneumonia Status: Acute Current Visit: Yes (3) End stage renal disease on dialysis Status: Chronic Current Visit: Yes (4) Diabetes mellitus Status: Chronic Current Visit: Yes Cardiology - PN: Subj Interval history: Admissions Recruiter: Dr. Jones Summary: Ms. De Dios is a 66 year old female who has seen Dr. Jones in the past with a history of ME, hypertension, CVA, IDDM, thyroid disorder, COPD, KASI (reports using CPAP occasionally), end-stage renal disease (dialyzes Wednesday). She is a poor historian so much of this history is obtained from the chart. She tells me she has never had any surgeries although there are several listed including laser eye surgery, abdominal surgery, and breast biopsy. She cannot tell me about her family history. Echocardiogram done Dr. Jones's office December 06, 2015 with ejection fraction of 20-25%. She had stress test on December 04, [address] Jones for him to clear her for AV graft placement. He did not feel she had any ischemia at the time, but it did show some scarring. He wrote her low surgical risk at that time. He also recommended she start on carvedilol 3.125 p.o. twice daily (this is not listed as a home meds so I am not sure if she did not start it or if it was stopped at some point). I am unable to find any records regarding her ME, but it is noted in Dr. Jones's note that she had one in the past. She currently smokes, stating a pack of cigarettes lasts her about 3 days. She lives alone and does use a cane for assistance with ambulation. May 06, 2017: Ms. De Dios is being seen while on dialysis. She tells me that she came to the hospital several days ago because she was swelling all over and short of breath. She says this been going on for several months. Looking at the H&P, she told Dr. Bryant this was started 2 days prior to admission. She also told them that she had some chest pain. She told me she had not had any chest pain. He does report that she has not missed any of her dialysis days. She had a positive d-dimer and CT of the chest was negative for pulmonary embolus, but did show a right lower lobe consolidation. IV antibiotics were started. BNP was elevated greater than 5000 on admission. BUN was 46 and creatinine was 5.5. Potassium is low at 3.1. Labs were rechecked yesterday and kidney function and potassium were improved. Echocardiogram done this admission with ejection fraction of 25%, moderate aortic valve regurgitation, moderate tricuspid valve regurgitation, and mild pulmonary valve regurgitation. EKG on admission showed sinus rhythm with heart rate of 77. She has been started on losartan 25 mg daily as well as Toprol-XL 25 mg daily. She presently denies any chest pain or shortness of breath. Her biggest complaint at the time that I am seeing her is that she is itching all over. She says she has asked for Benadryl and her nurse is supposed to be bringing it to her. Vital signs are stable, blood pressure this morning 120-57. O2 sat on room air 96%. May 07, 2017:Ms. De Dios is seen today while on dialysis. She denies any chest pain and reports her shortness of breath has improved. She reports her itching has also improved. She says she was using her CPAP when she went to sleep last night, but when she woke up this morning it was off. Vital signs been stable throughout the night. Cardiology addendum. Not much improvement in pruritus. Regular rhythm soft systolic murmur as before. Decreased breath sounds with rhonchi in the right base No leg edema Hemoglobin 12.0 hematocrit 35.3 Potassium 3.4 creatinine 3.20 Plan Dialysis CPAP mask nightly Cozaar 25 mg daily Metoprolol 25 mg daily Exam (Progress Note) - Constitutional Vitals: Period Temp Pulse Resp BP Sys/Herrera Pulse Ox Last 24 Hr 97.2 F-97.8 F 59-81 14-22 108-138/48-76 90-99 Exam: General: Present: No Apparent Distress, Other (Chronically ill-appearing) HEENT: Present: PERRL, Mucus Membranes Dry Neck: Present: Supple Neck, Midline Trachea, No Bruit Cardiac: Present: Reg Rate and Rhythm. Absent: Tachycardia, Bradycardia Lungs: Present: Decreased Breath Sounds, No Wheeze, Rales, Rhonchi Neuro: Absent: Resting Tremor, Essential Tremor Abdomen: Present: Soft, Active Bowel Sounds, Non-Tender. Absent: Distended Skin: Present: Other (Skin nodules noted, complains of generalized itching) Musculoskeletal: Present: No Pain, Normal Range of Motion Extremities: Present: Normal Upper Extr. Pulses, Normal Lower Extr. Pulses, Edema (Brawny edema) Result/EKG - Labs CBC & BMP: 05/07/17 11:35 05/07/17 11:35 Lab Results: I have reviewed the past 24 hour labs Labs: Laboratory Results - last 24 hr 05/06/17 05/06/17 05/07/17 15:35 20:32 07:16 POC Glucose 176 H 155 H 86 I, Lucian Singh MD, personally performed the services described in this documentation, ascribed by Laya Mcfarland RN in my presence, and it is both accurate and complete 318 .
--- NOTE | 2017-05-07 14:57 | Hospitalist Progress Note ---
Assessment and Plan (1) Acute on chronic systolic (congestive) heart failure Status: Acute Assessment and plan: This is improving some. However BNP is are now below 5000. However this patient also has end-stage renal disease some setting of these numbers not go down to normal. Most recent ejection fraction is around 20% Current Visit: Yes (2) End stage renal disease on dialysis Status: Chronic Assessment and plan: Continue hemodialysis nephrology is on the case Current Visit: Yes (3) Acute exacerbation of chronic obstructive airways disease Status: Acute Assessment and plan: Improving slowly continue treatment Current Visit: No (4) Community acquired pneumonia Status: Acute Assessment and plan: Continue antibiotic. Check mycoplasma IgM. Current Visit: Yes Hospitalist: Subjective Interval history: First encounter with Ms. De Dios, later admitted to the hospital with what he described as decompensated congestive heart failure with leg edema and some chest pains. Was found to have right lower lobe pneumonia on chest x-ray. He also has end-stage renal disease. Exam - Constitutional Vitals: Period Temp Pulse Resp BP Sys/Herrera Pulse Ox Last 24 Hr 97.2 F-97.8 F 59-81 14-22 108-138/48-76 90-99 General appearance: over weight - Head Head exam: Present: normocephalic, atraumatic - Eye Eye exam: Present: EOMI Pupils: Present: NEIL - ENT ENT exam: Present: normal exam - Neck Neck exam: Present: normal inspection - Respiratory Respiratory exam: Present: clear to auscultation bilaterally - Cardiovascular Cardiovascular exam: Present: regular rate and rhythm - GI/Abdominal GI/Abdominal exam: Present: normal bowel sounds, soft - Extremities Exam Extremities exam: Present: normal inspection, normal capillary refill, full ROM - Neurological Exam Neurological exam: Present: alert, oriented X3, CN II-XII intact - Psychiatric Psychiatric exam: Present: normal affect, normal mood - Skin Skin exam: Present: normal color, warm, dry Results - Labs CBC & BMP: 05/07/17 11:35 05/07/17 11:35 Lab Results: I have reviewed the past 24 hour labs (Noted recurrence of hypokalemia. Need to check magnesium level. She also has developed progressive drop in her platelets were 76,000. Patient is on Lovenox we should be discontinued use SCDs for DVT prophylaxis. Handout for heparin-induced thrombocytopenia panel)
[2017-05-07] MEDS: INSULIN NPH/REGULAR 70/30 100 UNIT/ML SUBCUT SCH (16:57)
[2017-05-07] MEDS: LOTION (KERI) 236 ML BOTTLE TOP SCH (17:29)
[2017-05-08] MEDS: ALBUTEROL 2.5 MG/3 ML NEB RESP TX SCH ×6 (02:24→22:48)
[2017-05-08] MEDS: LIDOCAINE/PRILOCAINE CREAM 5 GM TUBE TOP PRN (06:23)
[2017-05-08] MEDS: METOPROLOL SUCCINATE XL 25 MG TABLET PO SCH (08:08)
[2017-05-08] MEDS: PANTOPRAZOLE 40 MG TABLET PO SCH (08:08)
[2017-05-08] MEDS: LEVOTHYROXINE 25 MCG TABLET PO SCH (08:08)
[2017-05-08] MEDS: ASPIRIN 325 MG TABLET PO SCH (08:08)
[2017-05-08] MEDS: ENOXAPARIN 30 MG/0.3 ML SYRINGE SUBCUT SCH (08:09)
[2017-05-08] MEDS: LOSARTAN 25 MG TABLET PO SCH (08:09)
--- NOTE | 2017-05-08 09:49 | Nephrology Progress Note ---
Nephrology - PN: Subj Interval history: Seen during dialysis. No shortness of breath. Blood pressure stable Exam (PN)-Nephrology - Vital Signs Vital signs: Period Temp Pulse Resp BP Sys/Herrera Pulse Ox Last 24 Hr 96.7 F-98.3 F 60-83 18-20 110-150/55-76 94-99 Exam: ENT: Normal Cardiovascular: Regular rate and rhythm. No murmur rub or gallop Lungs: Clear Extremities: No edema - Lab 05/07/17 11:35 05/07/17 11:35 Most recent lab results Calcium 8.9 MG/DL (8.5-10.1) 05/07/17 11:35 Phosphorus 4.2 MG/DL (2.5-4.9) 05/05/17 06:17 Magnesium 2.6 MG/DL (1.8-2.4) H 05/04/17 00:53 Assessment and Plan (1) End stage renal disease on dialysis Status: Chronic Assessment and plan: 66-year-old woman with: * ESRD. Stable during dialysis * Volume overload. Resolved with dialysis * Pneumonia. Improving * Diabetes mellitus * Hypertension Current Visit: Yes (2) Volume overload Status: Acute Current Visit: Yes (3) Diabetes mellitus Status: Chronic Current Visit: Yes (4) Hypertension Status: Acute Current Visit: No (5) Pneumonia Status: Acute Current Visit: No
[2017-05-08] MEDS: INSULIN LISPRO 100 UNIT/ML SUBCUT SCH ×3 (10:07→16:03)
--- NOTE | 2017-05-08 10:33 | Cardiology Progress Note ---
Assessment and Plan (1) CHF (congestive heart failure) Status: Chronic Current Visit: Yes (2) Community acquired pneumonia Status: Acute Current Visit: Yes (3) End stage renal disease on dialysis Status: Chronic Current Visit: Yes (4) Diabetes mellitus Status: Chronic Current Visit: Yes Cardiology - PN: Subj Interval history: Cardiology note 66-year-old woman with cardiomyopathy and chronic renal failure admitted with CHF/fluid overload. BNP level greater than 5000 Patient seen at dialysis today. O2 sat 96% 2 L Telemetry has been benign Blood pressure 150/78 Regular rhythm no gallop soft systolic murmur as before Decreased breath sounds few rhonchi in the right base No leg edema Impression chronic renal failure on hemodialysis Longtime diabetic Status post infarction 1997 treated medically. Right lower lobe pneumonia and CHF Active smoker Pica syndrome Obstructive sleep apnea noncompliant with CPAP Echo Doppler May 04, 2017 ejection fraction 25% with moderate biatrial enlargement moderate AI normal RV function moderate TR PA pressure 50 with no effusion Abnormal but stable nuclear stress test December 04, 2015 at [facility] office showing scar but no ischemia and severe LV dysfunction Plan Dialysis No smoking DC Toprol Begin Coreg 3.125 mg twice daily Need CPAP Exam (Progress Note) - Constitutional Vitals: Period Temp Pulse Resp BP Sys/Herrera Pulse Ox Last 24 Hr 96.7 F-98.3 F 60-83 18-20 110-150/55-76 94-99 Result/EKG - Labs CBC & BMP: 05/07/17 11:35 05/07/17 11:35 Labs: Laboratory Results - last 24 hr 05/07/17 05/07/17 05/07/17 11:30 11:35 11:35 WBC 7.2 RBC 3.71 L Hgb 12.0 Hct 35.3 L MCV 95.1 MCH 32 MCHC 34.0 RDW 17.2 Plt Count 76 L D MPV 13.2 H Neut % (Auto) 77.1 H Lymph % (Auto) 9.5 L [place] % (Auto) 9.9 Eos % (Auto) 2.8 Baso % (Auto) 0.4 Neut # (Auto) 5.5 Lymph # (Auto) 0.7 L [place] # (Auto) 0.7 Eos # (Auto) 0.2 Baso # (Auto) 0.0 Immature Gran % 0.3 Nucleated RBC % 0.0 Immature Gran # 0.02 Nucleated RBCs # 0.00 Platelet Estimate Decreased Immature Plt Fraction 0.0 Hypochromasia 1+ Target Cells Few Morphology Comment Sodium 134 L Potassium 3.4 L Chloride 98 Carbon Dioxide 31 Anion Gap 8.4 BUN 25 H Creatinine 3.20 H GFR Calculation 17 BUN/Creatinine Ratio 7.00 Glucose 105 POC Glucose 106 Calculated Osmolality 271.2 L Calcium 8.9 Total Bilirubin 2.30 H AST 93 H ALT 48 Alkaline Phosphatase 655 H B-Natriuretic Peptide Total Protein 7.7 Albumin 2.7 L Globulin 5.0 H Albumin/Globulin Ratio 0.5 L 05/07/17 05/07/17 05/07/17 11:35 14:30 14:52 WBC RBC Hgb Hct MCV MCH MCHC RDW Plt Count MPV Neut % (Auto) Lymph % (Auto) [place] % (Auto) Eos % (Auto) Baso % (Auto) Neut # (Auto) Lymph # (Auto) [place] # (Auto) Eos # (Auto) Baso # (Auto) Immature Gran % Nucleated RBC % Immature Gran # Nucleated RBCs # Platelet Estimate Immature Plt Fraction Hypochromasia Target Cells Morphology Comment Sodium Potassium Chloride Carbon Dioxide Anion Gap BUN Creatinine GFR Calculation BUN/Creatinine Ratio Glucose POC Glucose 26 L* 133 H Calculated Osmolality Calcium Total Bilirubin AST ALT Alkaline Phosphatase B-Natriuretic Peptide 4283 H Total Protein Albumin Globulin Albumin/Globulin Ratio 05/07/17 05/07/17 05/07/17 15:40 16:07 20:24 WBC RBC Hgb Hct MCV MCH MCHC RDW Plt Count MPV Neut % (Auto) Lymph % (Auto) [place] % (Auto) Eos % (Auto) Baso % (Auto) Neut # (Auto) Lymph # (Auto) [place] # (Auto) Eos # (Auto) Baso # (Auto) Immature Gran % Nucleated RBC % Immature Gran # Nucleated RBCs # Platelet Estimate Immature Plt Fraction Hypochromasia Target Cells Morphology Comment Sodium Potassium Chloride Carbon Dioxide Anion Gap BUN Creatinine GFR Calculation BUN/Creatinine Ratio Glucose POC Glucose 79 121 H 158 H Calculated Osmolality Calcium Total Bilirubin AST ALT Alkaline Phosphatase B-Natriuretic Peptide Total Protein Albumin Globulin Albumin/Globulin Ratio 05/08/17 07:59 WBC RBC Hgb Hct MCV MCH MCHC RDW Plt Count MPV Neut % (Auto) Lymph % (Auto) [place] % (Auto) Eos % (Auto) Baso % (Auto) Neut # (Auto) Lymph # (Auto) [place] # (Auto) Eos # (Auto) Baso # (Auto) Immature Gran % Nucleated RBC % Immature Gran # Nucleated RBCs # Platelet Estimate Immature Plt Fraction Hypochromasia Target Cells Morphology Comment Sodium Potassium Chloride Carbon Dioxide Anion Gap BUN Creatinine GFR Calculation BUN/Creatinine Ratio Glucose POC Glucose 102 Calculated Osmolality Calcium Total Bilirubin AST ALT Alkaline Phosphatase B-Natriuretic Peptide Total Protein Albumin Globulin Albumin/Globulin Ratio
[2017-05-08] MEDS ORDERED: INSULIN ASPART PROTAMINE/ASPART 70/30 100 UNIT/ML SUBCUT SCH (11:30)
[2017-05-08] MEDS ORDERED: INSULIN NPH 100 UNIT/ML SUBCUT ONE (11:32)
--- NOTE | 2017-05-08 11:39 | Hospitalist Progress Note ---
Assessment and Plan (1) Acute on chronic systolic (congestive) heart failure Status: Acute Assessment and plan: This is improving some. However BNP is are now below 5000. However this patient also has end-stage renal disease some setting of these numbers not go down to normal. Most recent ejection fraction is around 20% Current Visit: Yes (2) End stage renal disease on dialysis Status: Chronic Assessment and plan: Continue hemodialysis nephrology is on the case Current Visit: Yes (3) Acute exacerbation of chronic obstructive airways disease Status: Acute Assessment and plan: Improving slowly continue treatment Current Visit: No (4) Community acquired pneumonia Status: Acute Assessment and plan: Continue antibiotic. Checking mycoplasma IgM (currently pending). Current Visit: Yes Hospitalist: Subjective Interval history: Patient has been seen interviewed and examined and chart has been reviewed. Patient was seen in the dialysis unit. Blood sugars are getting to be high again. She will therefore go back to a 7 preparations with the dose that is however to completely to a total 30 units in a day. Still has a sliding scale insulin that is used before meals. Also will be given 6 units of NPH insulin at lunch today. I expect the blood sugar to stabilize. Patient is 66-year-old lady admitted to the hospital with a decompensation of Systolic congestive heart failure she is a diabetic has end-stage renal disease and also COPD. Admission shows adequate community-acquired pneumonia. Overall she is doing better. Yesterday she did have hypoglycemia event and I suspect the insulin was too much. Immediate and immediate mixture of insulin using NovoLog 70/30 has been resumed today as mentioned above. Exam - Constitutional Vitals: Period Temp Pulse Resp BP Sys/Herrera Pulse Ox Last 24 Hr 96.7 F-98.3 F 60-83 18-20 110-150/55-76 94-99 General appearance: over weight - Head Head exam: Present: normocephalic, atraumatic, other (Awake alert oriented 3 sharp witted) - Eye Eye exam: Present: EOMI Pupils: Present: NEIL - ENT ENT exam: Present: normal exam - Neck Neck exam: Present: normal inspection - Respiratory Respiratory exam: Present: clear to auscultation bilaterally - Cardiovascular Cardiovascular exam: Present: regular rate and rhythm - GI/Abdominal GI/Abdominal exam: Present: normal bowel sounds, soft - Extremities Exam Extremities exam: Present: full ROM - Neurological Exam Neurological exam: Present: alert, oriented X3, CN II-XII intact - Psychiatric Psychiatric exam: Present: normal affect, normal mood - Skin Skin exam: Present: normal color, warm, dry, other (Multiple scars on the skin most likely secondary to end-stage renal disease/dialysis skin pathology secondary to calcium phosphate deposits) Results - Labs CBC & BMP: 05/07/17 11:35 05/07/17 11:35 Lab Results: I have reviewed the past 24 hour labs
[2017-05-08] MEDS: LEVOFLOXACIN INJ 250 MG in PREMIX 1 EACH IV SCH (13:45)
[2017-05-08] MEDS: LOTION (KERI) 236 ML BOTTLE TOP SCH (15:12)
[2017-05-08] MEDS: INSULIN ASPART PROTAMINE/ASPART 70/30 100 UNIT/ML SUBCUT SCH (17:44)
[2017-05-08] MEDS: CARVEDILOL 3.125 MG TABLET PO SCH (18:21)
[2017-05-08] MEDS: AZITHROMYCIN INJ 500 MG in SODIUM CHLORIDE 0.9% 250 ML IV SCH (18:44)
[2017-05-08] MEDS: DOCUSATE SODIUM 100 MG CAPSULE PO PRN (20:32)
[2017-05-09] MEDS: ALBUTEROL 2.5 MG/3 ML NEB RESP TX SCH ×5 (02:37→19:53)
--- NOTE | 2017-05-09 08:27 | Hospitalist Progress Note ---
Hospitalist: Subjective Interval history: No fever. Pt states SOB is better and able to lie flatter. She is still concerned about the swelling and "hardness" of her legs. No chest pain or palpitations. No nausea or vomiting. Tolerating oral intake well. +Last BM this am and she denies any diarrhea. Exam - Constitutional Vitals: Period Temp Pulse Resp BP Sys/Herrera Pulse Ox Last 24 Hr 97.0 F-98.7 F 67-82 18-20 101-114/44-67 67-100 Exam: GEN: Awake, alert and oriented to person, place, time and situation sitting on hospital bed with legs hanging off bed in NAD HEENT: no thrush. Clear sclera CV: RRR 2/6 systolic, diastolic M LUNGS: CTAB nonlabored ABD: Soft, NT, ND, +BS EXT:Warm. no cyanosis. +1 pitting lower extremity edema with thickened skin on legs. Moves all extremities Results - Labs CBC & BMP: 05/07/17 11:35 05/07/17 11:35 - Impressions (1) Acute on chronic systolic (congestive) heart failure (EF 25%) with moderate AR/ TR- improving Status: Acute Assessment and plan: - Cont Losartan, Coreg. Fluid management with HD. Cardiology following. May need to consider defibrillator placement if EF does not improve with treatment. Compliance encouraged. Current Visit: Yes (2) End stage renal disease on dialysis Status: Chronic Assessment and plan: Continue hemodialysis per nephrology Current Visit: Yes (3) Acute exacerbation of chronic obstructive airways disease with severe pulmonary hypertension Status: Acute Assessment and plan: - Slowly improving. Cont bronchodilators. Oxygen as needed. IV antibiotics. Pt encouraged to use CPAP Current Visit: No (4) Community acquired pneumonia Status: Acute Assessment and plan: Continue IV Azithromycin and bronchodilators. Mycoplasma IgM pending. Current Visit: Yes (5) Insulin dependent DM- currently blood sugars are controlled. - No further hypoglycemic episodes noted. - Insulin sliding scale. Accuchecks ac,hs. on lower doses of scheduled insulin. (6) Hypothyroidism -Cont Synthroid. Check TSH (7) KASI - Pt states mask does not fit well. She needs F/U with Dr. Fuentes. Will consult. DVT prophylaxis- Lovenox D/W pt and nurse. All questions answered. I will be away several days. One of my associates will follow in my absence.
[2017-05-09] MEDS: ASPIRIN 325 MG TABLET PO SCH (09:41)
[2017-05-09] MEDS: LEVOTHYROXINE 25 MCG TABLET PO SCH (09:42)
[2017-05-09] MEDS: PANTOPRAZOLE 40 MG TABLET PO SCH (09:42)
[2017-05-09] MEDS: CARVEDILOL 3.125 MG TABLET PO SCH ×2 (09:42→18:50)
[2017-05-09] MEDS: DOCUSATE SODIUM 100 MG CAPSULE PO PRN (09:42)
[2017-05-09] MEDS: LOSARTAN 25 MG TABLET PO SCH (09:42)
[2017-05-09] MEDS: ENOXAPARIN 30 MG/0.3 ML SYRINGE SUBCUT SCH (09:43)
[2017-05-09] MEDS: LOTION (KERI) 236 ML BOTTLE TOP SCH (09:43)
[2017-05-09] MEDS: INSULIN LISPRO 100 UNIT/ML SUBCUT SCH ×3 (09:48→15:30)
[2017-05-09] MEDS: INSULIN ASPART PROTAMINE/ASPART 70/30 100 UNIT/ML SUBCUT SCH ×2 (09:49→11:10)
--- NOTE | 2017-05-09 11:20 | Nephrology Progress Note ---
Nephrology - PN: Subj Interval history: No S OB or cough today. Exam (PN)-Nephrology - Vital Signs Vital signs: Period Temp Pulse Resp BP Sys/Herrera Pulse Ox Last 24 Hr 97.0 F-98.7 F 67-82 16-20 101-114/44-67 67-100 Exam: ENT: Normal Cardiovascular: Regular rate and rhythm. No murmur rub or gallop Lungs: Clear Extremities: No edema - Lab 05/07/17 11:35 05/07/17 11:35 Most recent lab results Calcium 8.9 MG/DL (8.5-10.1) 05/07/17 11:35 Phosphorus 4.2 MG/DL (2.5-4.9) 05/05/17 06:17 Magnesium 2.6 MG/DL (1.8-2.4) H 05/04/17 00:53 Assessment and Plan (1) End stage renal disease on dialysis Status: Chronic Assessment and plan: 66-year-old woman with: * ESRD. Dialyzed Wednesday * Volume overload. Resolved with dialysis * Pneumonia. Improving * Diabetes mellitus * Hypertension Current Visit: Yes (2) Volume overload Status: Acute Current Visit: Yes (3) Diabetes mellitus Status: Chronic Current Visit: Yes (4) Hypertension Status: Acute Current Visit: No (5) Pneumonia Status: Acute Current Visit: No
--- NOTE | 2017-05-09 14:17 | Cardiology Progress Note ---
Assessment and Plan (1) CHF (congestive heart failure) Status: Chronic Current Visit: Yes (2) Community acquired pneumonia Status: Acute Current Visit: Yes (3) End stage renal disease on dialysis Status: Chronic Current Visit: Yes (4) Diabetes mellitus Status: Chronic Current Visit: Yes Cardiology - PN: Subj Interval history: Cardiology note 66-year-old woman with cardiomyopathy and chronic renal failure admitted with CHF/volume overload and pneumonia Blood pressure 110/70 Feels better today. Less short of breath. No leg edema. Regular rhythm soft systolic murmur Decreased breath sounds but fairly clear Impression Chronic renal failure on hemodialysis Longtime diabetes Right lower lobe pneumonia and CHF improving Active smoker Pica syndrome Obstructive sleep apnea noncompliant with CPAP Echo May 04, 2017 ejection fraction 25% with moderate biatrial enlargement moderate AI normal RV function moderate TR PA pressure 50 with no effusion Abnormal but stable nuclear stress test December 04, 2015 at [facility] office showing scar but no ischemia and severe LV dysfunction Plan No smoking Dialysis tomorrow Coreg 3.125 mg twice daily Exam (Progress Note) - Constitutional Vitals: Period Temp Pulse Resp BP Sys/Herrera Pulse Ox Last 24 Hr 97.0 F-98.7 F 67-82 16-20 101-114/44-67 67-100 Result/EKG - Labs CBC & BMP: 05/07/17 11:35 05/07/17 11:35 Labs: Laboratory Results - last 24 hr 05/08/17 05/08/17 05/09/17 15:58 20:29 07:23 POC Glucose 146 H 217 H 174 H 05/09/17 11:09 POC Glucose 186 H
[2017-05-09] MEDS: AZITHROMYCIN INJ 500 MG in SODIUM CHLORIDE 0.9% 250 ML IV SCH (18:49)
[2017-05-10] MEDS: ALBUTEROL 2.5 MG/3 ML NEB RESP TX SCH ×5 (00:01→14:40)
[2017-05-10] MEDS: INSULIN ASPART PROTAMINE/ASPART 70/30 100 UNIT/ML SUBCUT SCH ×2 (08:36→16:04)
[2017-05-10] MEDS: INSULIN LISPRO 100 UNIT/ML SUBCUT SCH ×2 (08:36→12:27)
[2017-05-10] MEDS: PANTOPRAZOLE 40 MG TABLET PO SCH (09:10)
[2017-05-10] MEDS: ASPIRIN 325 MG TABLET PO SCH (09:10)
[2017-05-10] MEDS: LEVOTHYROXINE 25 MCG TABLET PO SCH (09:10)
[2017-05-10] MEDS: CARVEDILOL 3.125 MG TABLET PO SCH (09:10)
[2017-05-10] MEDS: LOSARTAN 25 MG TABLET PO SCH (09:10)
[2017-05-10] MEDS: ENOXAPARIN 30 MG/0.3 ML SYRINGE SUBCUT SCH (09:11)
[2017-05-10] MEDS: LOTION (KERI) 236 ML BOTTLE TOP SCH (09:11)
--- NOTE | 2017-05-10 11:21 | Discharge Summary ---
Hospital Course - Hospital Course Hospital Course: 66-year-old -Tuval[place] female with history of diabetes, KASI, hypothyroidism, hypertension, end-stage renal disease on hemodialysis admitted by the hospitalist service on 05/04/2017 with community-acquired pneumonia and acute on chronic CHF exacerbation. She had an elevated d-dimer so CT of the chest was performed that showed pulmonary edema and anasarca with superimposed infiltration. She was started on antibiotics and diuresis. Echocardiogram showed an EF of 25%. Nephrology and cardiology followed during her hospital stay. Her cardiology medications have been adjusted. She is now afebrile and her vital signs are stable and her lungs are clear. Patient has been restarted on her Wednesday, , Wednesday HD schedule. She is refusing any IV treatment so she has reached maximum hospital benefit. She will be discharged home on 5 day course of Cipro. She will need to follow-up with her primary care physician in 1-2 weeks. She was also instructed to be more compliant with her medications and her CPAP machine. Complete discharge instructions were given. Care coordination, chart review, and completed discharge paperwork took approximately 38 minutes. I evaluated this patient and completed independent history and physical examination. I coordinated care with BREA Leiva PA-C. I agree with the documentation that she provides below. Chest now with few crepitans on the right-hand side Patient medications were reconciled upon admission, and again at the time of discharge. The patient was screened for tobacco use and found to be a former smoker. The patient was given 4 minutes of tobacco avoidance education. The patient's medical decsion maker is themself, and when asked, they asked to be Full code. - Time spent with patient Time with patient DS: Greater than 30 minutes Diagnosis - Discharge Diagnosis (1) End stage renal disease on dialysis Status: Chronic (2) Hypertension Status: Chronic (3) Diabetes mellitus Status: Chronic (4) Hyperlipidemia Status: Chronic (5) Community acquired pneumonia Status: Resolved (6) Ascites Status: Chronic (7) Acute on chronic systolic (congestive) heart failure Status: Resolved Specialty Discharge - Follow Up or Referrals Follow up with: your,pcp [Other] - 2 Weeks Rudolph Jones MD [Physician] - 1 Month Discharge Plan - Discharge Data Disposition: Disch To Home/Self Care Condition at Discharge: Stable Discharge Diet: diabetic diet Activity: resume usual activities as tolerated Contact your physician if you experience:: Shortness of breath - Discharge Medications New RX: Aspirin Tab 325 mg PO DAILY #30 tablet RX: Carvedilol [Coreg] 3.125 mg PO BID W/MEALS #60 tablet Ciprofloxacin Tab [Cipro Tab] 500 mg PO DAILY #5 tablet RX: diphenhydrAMINE CAP [Benadryl Cap] 25 mg PO BEDTIME PRN capsule PRN Reason: Itching RX: diphenhydrAMINE CAP [Benadryl Cap] 25 mg PO Q4H PRN capsule PRN Reason: Itching RX: Losartan [Cozaar] 25 mg PO DAILY #30 tablet RX: Lotion (Mary) [Mary Lotion] 1 applic TOP DAILY applic Continue RX: Levothyroxine Tab [Synthroid Tab] 25 mcg PO DAILY RX: Insulin Aspart Prot/Asp 70/30 [NovoLOG Mix 70/30] 40 unit SUBCUT AC BREAKFAST RX: Insulin Aspart Prot/Asp 70/30 [NovoLOG Mix 70/30] 20 unit SUBCUT AC SUPPER RX: Albuterol Sulfate [Ventolin HFA] 2 puff INH Q4H - Follow Up or Referral Follow Up: your,pcp [Other] - 2 Weeks Rudolph Jones MD [Physician] - 1 Month - Forms/Instructions Exam - Constitutional Vitals: Period Temp Pulse Resp BP Sys/Herrera Pulse Ox Last 24 Hr 96.5 F-97.8 F 47-92 16-20 89-144/53-67 92-99 Exam: 66-year-old -Tu[place] female, no acute distress, alert and oriented Chest clear CV regular rate and rhythm Abdomen obese, nontender Extremities no edema Discharge Results Procedures and tests throughout hospitalization: Pending Orders 05/07/17 20:47 Mycoplasma pneumo Abs IgG,IgM Routine Labs on day of discharge: Labs from last 24 hours 05/10/17 05/10/17 05/10/17 11:37 07:37 03:41 POC Glucose 237 H 170 H TSH 3rd Generation 6.280 H 05/09/17 05/09/17 20:20 15:26 POC Glucose 176 H 196 H TSH 3rd Generation DS: Provider Date of admission: 05/04/17 03:23 Primary care physician: Jacinto Leslie Attending physician on admission: Antoni Bryant MD Consults: 05/04/17 04:35 Consult to Pastoral Services [CONS] Routine Comment: Pastoral Screen: Request Draw String Knotter Visit Pastoral Screen Source of Request: Patient 05/04/17 05:40 Consult to Dietitian [CONS] Routine Reason for Dietitian: Dietary Consult Coumadin Education Consult Comment: help with diabetic diet Consult to Physician [CONS] Routine Comment: dialysis patient; TThS, SOB, edema Consulting Provider: Antoni Costa 05/05/17 15:40 Consult to Physician [CONS] Routine Comment: CHF with EF 25% Consulting Provider: Cardiology - [facility] Consult to Specialist Group: Cardiology When should Consulting Provider be notified: In am Person Notified: JENNIFER Date Notified: 05/06/17 Time Notified: 08:00 05/06/17 09:17 Consult to Physician [CONS] Routine Comment: Consulting Provider: 05/09/17 09:42 Consult to Physician [CONS] Routine Comment: re; KASI Consulting Provider: Lucia Fuentes When should Consulting Provider be notified: Now 05/10/17 09:56 Consult to Sleep Center [CONS] Routine Reason for Sleep Center: Sleep Center Physician Consult Comment: KASI Discharging clinician: ABIGAIL Jimenez Expected date of discharge: 05/10/17
--- NOTE | 2017-05-10 12:26 | Cardiology Progress Note ---
Assessment and Plan (1) CHF (congestive heart failure) Status: Chronic Current Visit: Yes (2) Community acquired pneumonia Status: Resolved Current Visit: Yes (3) End stage renal disease on dialysis Status: Chronic Current Visit: Yes (4) Diabetes mellitus Status: Chronic Current Visit: Yes Cardiology - PN: Subj Interval history: Cardiology note Feels better No shortness of breath. Anxious to go home. Blood pressure 118/70 O2 sat 97 Decreased breath sounds but fairly clear Regular rhythm with soft systolic murmur Abdomen benign No leg edema Impression Chronic renal failure on hemodialysis Right lower lobe pneumonia and CHF improved Longtime diabetes Active smoker Pica syndrome Obstructive sleep apnea noncompliant with CPAP Echo Doppler May 04February 20 ejection fraction 25% with moderate mitral enlargement, moderate AI, normal RV function and moderate TR PA pressure 50 with no effusion abnormal but stable nuclear stress test December 04, 2015 at [facility] office showing scar but no ischemia and severe LV dysfunction Plan Agree with discharge No smoking Coreg 3.125 mg twice daily Patient needs to wear CPAP mask nightly Office follow-up with Dr. Jones in 2 weeks Exam (Progress Note) - Constitutional Vitals: Period Temp Pulse Resp BP Sys/Herrera Pulse Ox Last 24 Hr 96.5 F-97.8 F 47-92 16-20 89-144/53-67 92-99 Result/EKG - Labs CBC & BMP: 05/07/17 11:35 05/07/17 11:35 Labs: Laboratory Results - last 24 hr 05/09/17 05/09/17 05/10/17 15:26 20:20 03:41 POC Glucose 196 H 176 H TSH 3rd Generation 6.280 H Specialty Discharge - Follow Up or Referrals Follow up with: your,pcp [Other] - 2 Weeks Rudolph Jones MD [Physician] - 1 Month
[2017-05-10 12:29] VITALS: BP 101/55
--- NOTE | 2017-05-10 14:16 | Nephrology Progress Note ---
Nephrology - PN: Subj Interval history: She has no pulmonary complaints today. No new problems Exam (PN)-Nephrology - Vital Signs Vital signs: Period Temp Pulse Resp BP Sys/Herrera Pulse Ox Last 24 Hr 96.5 F-97.8 F 47-92 16-20 89-144/53-67 92-99 Exam: ENT: Normal Cardiovascular: Regular rate and rhythm. No murmur rub or gallop Lungs: Clear Extremities: No edema - Lab 05/07/17 11:35 05/07/17 11:35 Most recent lab results Calcium 8.9 MG/DL (8.5-10.1) 05/07/17 11:35 Phosphorus 4.2 MG/DL (2.5-4.9) 05/05/17 06:17 Magnesium 2.6 MG/DL (1.8-2.4) H 05/04/17 00:53 Assessment and Plan (1) End stage renal disease on dialysis Status: Chronic Assessment and plan: 66-year-old woman with: * ESRD. Dialysis TTS * Volume overload. Resolved with dialysis * Pneumonia. Improved. Discharge plans noted * Diabetes mellitus * Hypertension Current Visit: Yes (2) Volume overload Status: Acute Current Visit: Yes (3) Diabetes mellitus Status: Chronic Current Visit: Yes (4) Hypertension Status: Chronic Current Visit: No (5) Pneumonia Status: Acute Current Visit: No Specialty Discharge - Follow Up or Referrals Follow up with: your,pcp [Other] - 2 Weeks Rudolph Jones MD [Physician] - 1 Month
[2017-05-10] MEDS: AZITHROMYCIN INJ 500 MG in SODIUM CHLORIDE 0.9% 250 ML IV SCH (16:04)
[2017-05-12 14:16] LABS: Mycoplasma pneumoniae Ab, IgG 2.87 index (<=0.90); Mycoplasma pneumoniae Ab, IgM 0.11 index (<=0.90)
== END 2017-05-10 17:35 | disposition home or self-care (01) | DRG 291 ==
LOC: EDBD → EDUNIT# → N.ED 23:12 → SUATTDRO 05-04 03:23 → N.EDINP 05-04 03:23 → N.2E 05-04 03:55
PROVIDERS: ADMIT Internal Medicine

== ENCOUNTER 2017-05-24 23:48 | Inpatient (IN) ==
[2017-05-25] MEDS ORDERED: ONDANSETRON 4 MG/2 ML VIAL IV STA (00:43)
[2017-05-25] MEDS ORDERED: ASPIRIN 325 MG TABLET PO STA (00:43)
--- NOTE | 2017-05-25 00:47 | EKG Report ---
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
[2017-05-25] MEDS ORDERED: ASPIRIN EC 325 MG TABLET PO ONE (00:52)
[2017-05-25] MEDS ORDERED: ONDANSETRON 4 MG/2 ML VIAL ONE (00:52)
[2017-05-25] MEDS ORDERED: ASPIRIN 325 MG TABLET ONE (00:57)
[2017-05-25 01:39] LABS: Basophils # 0.1 10*3/uL (0.0-0.2); Basophils % 0.6 % (0.0-0.8); Eosinophils # 0.2 10*3/uL (0.0-0.87); Eosinophils % 2.6 % (0.00-10.9); Hematocrit 31.5 VOL% (35.7-47.0); Hemoglobin 11.4 GM/DL (12.0-16.0); Immature Granulocytes % 0.5 %; Immature Granulocytes Absolute 0.04 #; Mean Corpuscular HGB Conc 36.2 GM/DL (32-36); Mean Corpuscular Hemoglobin 33 PG (27-34); Mean Corpuscular Volume 92.4 FL (87-102); Monocytes # 1.1 10*3/uL (0.11-0.8); Monocytes % 12.2 % (1.7-12.7); NRBC # 0.02 10*3/uL; Neutrophils # 6.4 10*3/uL (1.4-7.4); Neutrophils % 73.1 % (38.7-73.9); Platelet Count 159 T/CUMM (130-400); Red Blood Count 3.41 MC/CUMM (3.8-5.5); Red Cell Distribution Width 20.5 % (9.3-17.3); White Blood Count 8.8 T/CUMM (4-12)
[2017-05-25 01:48] LABS: INR 1.1; PT Patient Result 11.6 SECS
[2017-05-25 02:01] LABS: Anisocytosis 1+
[2017-05-25 02:02] LABS: Albumin 2.3 G/DL (3.4-5.0); Bilirubin,Total 8.9 MG/DL (0.2-1.0); Calcium 8.7 MG/DL (8.5-10.1); Hypochromasia 1+; Osmolality,Calculated 284.4 MOS/KG (273-304); Platelet Estimate Adequate; Potassium 3.7 MMOL/L (3.5-5.1); Target Cells 1+; Total Protein 6.9 G/DL (6.4-8.3)
--- NOTE | 2017-05-25 02:34 | Emergency Department Note ---
Vivien Potter Emily, am scribing for, and in the presence of, Shaan Jones MD 01: 09. Robert Potter Charles R, MD, personally performed the services described in this documentation, ascribed by Tina Puga in my presence, and it is both accurate and complete . Arrival - Arrival Chief Complaint: Chest Pain Stated Complaint: CP, SOB ED Nursing Triage Note: chest pain and sob. Mode of Arrival: Stretcher Limitations: No Limitations Source: Patient Time Seen by Provider: 05/25/17 00:36 - History of Present Illness HPI Narrative: Pt is a 66 y/o female who came to ED with c/o chest pain and SOB that started suddenly late last night. Family notes pt has some swelling, similar to her past visits. Pt is on dialysis TThSat, in which dialyzes tomorrow, with graft in left arm. Pt has had CVA but no stents under supervision of Dr. Jones. Pt states the chest pain is mild now. Family notes pt is smoking still daily. Pt reports scratching the lesions on both arms. Pt was d/c from [facility] on May 10, 2017, for community-acquired pneumonia and acute on chronic CHF exacerbation. She had an elevated d-dimer so CT of the chest was performed that showed pulmonary edema and anasarca with superimposed infiltration. Echocardiogram showed an EF of 25%. Pt was d/c with 5 days of cipro, visit her PCP in 1-2 weeks, and advised to be more compliant with medications and CPAP machine. Onset (ago): hour(s) Consistency: constant Severity: mild, moderate Severity scale (1-10): 4 Quality: aching, fullness Allergies/Adverse Reactions: Allergies Allergy/AdvReac Type Severity Reaction Status Date / Time No Known Allergies Allergy Verified 12/04/16 06:17 Home Medications: Home Medications Medication Instructions Recorded Confirmed Type Insulin Aspart Prot/Asp 70/30 20 unit SUBCUT AC SUPPER 09/25/15 05/04/17 History [NovoLOG Mix 70/30] Insulin Aspart Prot/Asp 70/30 40 unit SUBCUT AC BREAKFAST 09/25/15 05/04/17 History [NovoLOG Mix 70/30] Levothyroxine Tab [Synthroid Tab] 25 mcg PO DAILY 09/25/15 05/04/17 History Albuterol Sulfate [Ventolin HFA] 2 puff INH Q4H 03/03/05/04/17 History Aspirin Tab 325 mg PO DAILY #30 tablet 05/10/17 Rx Carvedilol [Coreg] 3.125 mg PO BID W/MEALS #60 tablet 05/10/17 Rx Ciprofloxacin Tab [Cipro Tab] 500 mg PO DAILY #5 tablet 05/10/17 Rx Losartan [Cozaar] 25 mg PO DAILY #30 tablet 05/10/17 Rx Lotion (Mary) [Mary Lotion] 1 applic TOP DAILY applic 05/10/17 Rx diphenhydrAMINE CAP [Benadryl Cap] 25 mg PO BEDTIME PRN capsule 05/10/17 Rx diphenhydrAMINE CAP [Benadryl Cap] 25 mg PO Q4H PRN capsule 05/10/17 Rx Review of System - Review of System 12 point system: reviewed and no additional remarkable complaints except as stated - Review of System Constitutional: Absent: chills, diaphoresis, fever Respiratory: Present: respiratory distress. Absent: wheezing Cardiovascular: Present: chest pain Gastrointestinal: Absent: abdominal pain, nausea, vomiting Musculoskeletal: Absent: arm pain Skin: Absent: rash Neurological: Absent: headache Medical,Surgical,& Family Hx - Medical History Cardio: History of: CAD, Hypertension, [place] (1997) Neurology: History of: Cerebrovascular Accident (1998) No history of: Seizures HEENT: History of: Eye Problem (Glasses) No history of: Ear Problem, Dental Problems, HEENT Problems Endocrine: History of: Diabetes Mellitus (IDDM), Thyroid Disorder Rheumatology: History of;: Rheumatoid Arthritis Respiratory: History of: COPD, Obstructive Sleep Apnea (CPAP), Respiratory Problems (SHORTNESS OF BREATH; ?No Flu Vac per daughter) Renal: History of: [facility] Genitourinary: No history of: Problems Gastrointestinal: History of: GI Problems (CONSTIPATION) No history of: Liver Problems Hematology: No history of: Blood Transfusion Reaction (No Transfusions) Other: History of: Miscellaneous Medical Problems (LEFT GRAFT) No history of: Anesthesia Reactions, Cancer - Surgical History HEENT Surgeries: Surgical HX of: Eye Surgery (LASER BILATERAL) Abdominal Surgeries: Surgical HX of: Abdominal Surgery Reproductive Surgeries: Surgical HX of;: Breast Surgery (BX) - Family History Family History: Reports;: Family Cancer (Siblings), Family Diabetes (Mom and siblings), Family Heart Disease (father) - Social History Smoking Status: Current every day smoker Frequency of Alcohol Use: None Type of Drug Use: None Marital Status: Single Lives With:: Children Functional capacity: wheelchair bound Exam Vital Signs: Vital Signs Temperature 97 F L 05/24/17 23:56 Pulse Rate 73 05/24/17 23:56 Respiratory Rate 20 05/24/17 23:56 Blood Pressure 99/42 05/24/17 23:56 O2 Sat by Pulse Oximetry 98 05/24/17 23:56 - General General appearance: alert, in no apparent distress - Head Head exam: Present: atraumatic, normocephalic - Eye Eye exam: Present: PERRL, EOMI - ENT ENT exam: Present: mucous membranes moist. Absent: mucous membranes dry - Neck Neck exam: Present: full ROM - Chest Chest inspection: Present: symmetric chest wall rise - Respiratory Respiratory exam: Present: normal lung sounds bilaterally. Absent: respiratory distress - Cardiovascular Cardiovascular exam: Present: murmur (loud 4 out of 6). Absent: rubs, gallop - Abdominal Exam Abdominal exam: Present: soft. Absent: tenderness - Extremities Exam Extremities exam: Present: full ROM, pedal edema (+1) - Neurological Exam Neurological exam: Present: alert, oriented X3, CN II-XII intact - Psychiatric Psychiatric exam: Present: normal affect, normal mood - Skin Skin exam: Present: warm, dry. Absent: intact (bilateral upper extremities have calcium deposits with scratch burks) Course - Consultations Consultation #1: Hospitalist will admit patient Time: 02:33 Procedures - Central Line Placement Left IJ Consent Obtained: verbal consent Time Out Performed: Yes Patient Placed on Monitor/Pulse Ox: Yes Prep: gloves Central Line Prep: Chlorhexidine scrub Ultrasound Used for Placement: No Central Line Lumen Inserted: single (18 gauge) Post Procedure: sutured in place, good blood return, all ports aspirated, flushed, capped, sterile dressing applied Post Procedure X-Ray: tip of catheter in good position Patient Tolerated Procedure: well, no complications Complications: none Results - Labs CBC & BMP: 05/25/17 00:48 05/25/17 00:48 Lab Results: I have reviewed the patients labs Labs: Laboratory Tests 05/25/17 00:48 WBC 8.8 RBC 3.41 L Hgb 11.4 L Hct 31.5 L MCHC 36.2 H RDW 20.5 H Plt Count 159 Lymph % (Auto) 11.0 L Lymph # (Auto) 1.0 L [place] # (Auto) 1.1 H Disposition Clinical Impression: Atypical chest pain, End stage renal disease on dialysis, CHF (congestive heart failure) Case discussed with: patient, patient's family Disposition: Still a Patient Condition: Stable Time of Disposition: 02:33
--- NOTE | 2017-05-25 04:28 | Hospitalist History & Physical ---
Assessment and Plan (1) End stage renal disease on dialysis Status: Chronic Current Visit: Yes (2) Hypertension Status: Chronic Current Visit: No (3) Diabetes mellitus Status: Chronic Current Visit: No (4) Hyperlipidemia Status: Chronic Current Visit: No (5) Volume overload Status: Acute Current Visit: No (6) Skin rash Status: Acute Current Visit: No (7) Itching Status: Acute Current Visit: No (8) Atypical chest pain Status: Acute Assessment and plan: Plan for this patient 1. Admit the patient to telemetry 2. Home meds as appropriate 3. Serial cardiac enzymes 4. Nephrology consult 5. Cardiology consult Current Visit: Yes History of Present Illness Chief complaint: Chest pain back pain shortness of breath History of present illness: Ms. De Dios is a 66 year old female with past medical history significant for end-stage dialysis presents to our ER tonight. Patient reports that her symptoms started earlier tonight. She says that she has chest pain. She describes as pressure but it also is sharp sometimes. She says that she is short of breath now with the chest pain. She cannot tell what causes the chest pain to come on but she feels bad with this pain. She does have some chest wall tenderness. She has not had dialysis since Wednesday and she is scheduled for it today. I was consulted to admit her to the emergency room for her chest pain. Home Medications Medication Instructions Recorded Confirmed Type Insulin Aspart Prot/Asp 70/30 20 unit SUBCUT AC SUPPER 09/25/15 05/04/17 History [NovoLOG Mix 70/30] Insulin Aspart Prot/Asp 70/30 40 unit SUBCUT AC BREAKFAST 09/25/15 05/04/17 History [NovoLOG Mix 70/30] Levothyroxine Tab [Synthroid Tab] 25 mcg PO DAILY 09/25/15 05/04/17 History Albuterol Sulfate [Ventolin HFA] 2 puff INH Q4H 03/03/16 05/04/17 History Aspirin Tab 325 mg PO DAILY #30 tablet 05/10/17 Rx Carvedilol [Coreg] 3.125 mg PO BID W/MEALS #60 tablet 05/10/17 Rx Ciprofloxacin Tab [Cipro Tab] 500 mg PO DAILY #5 tablet 05/10/17 Rx Losartan [Cozaar] 25 mg PO DAILY #30 tablet 05/10/17 Rx Lotion (Mary) [Mary Lotion] 1 applic TOP DAILY applic 05/10/17 Rx diphenhydrAMINE CAP [Benadryl Cap] 25 mg PO BEDTIME PRN capsule 05/10/17 Rx diphenhydrAMINE CAP [Benadryl Cap] 25 mg PO Q4H PRN capsule 05/10/17 Rx Allergies Allergy/AdvReac Type Severity Reaction Status Date / Time No Known Allergies Allergy Verified 12/04/16 06:17 Medical,Surgical,& Family Hx - Medical History Cardio: History of: CAD, Hypertension, [place] (1997) Neurology: History of: Cerebrovascular Accident (1998) No history of: Seizures HEENT: History of: Eye Problem (Glasses) No history of: Ear Problem, Dental Problems, HEENT Problems Endocrine: History of: Diabetes Mellitus (IDDM), Thyroid Disorder Rheumatology: History of;: Rheumatoid Arthritis Respiratory: History of: COPD, Obstructive Sleep Apnea (CPAP), Respiratory Problems (SHORTNESS OF BREATH; ?No Flu Vac per daughter) Renal: History of: Dialysis (T TH SAT FRESINUS) Genitourinary: No history of: Problems Gastrointestinal: History of: GI Problems (CONSTIPATION) No history of: Liver Problems Hematology: No history of: Blood Transfusion Reaction (No Transfusions) Other: History of: Miscellaneous Medical Problems (LEFT GRAFT) No history of: Anesthesia Reactions, Cancer - Surgical History HEENT Surgeries: Surgical HX of: Eye Surgery (LASER BILATERAL) Abdominal Surgeries: Surgical HX of: Abdominal Surgery Reproductive Surgeries: Surgical HX of;: Breast Surgery (BX) - Family History Family History: Reports;: Family Cancer (Siblings), Family Diabetes (Mom and siblings), Family Heart Disease (father) - Social History Smoking Status: Current every day smoker Frequency of Alcohol Use: None Type of Drug Use: None 12 point system: reviewed and no additional remarkable complaints except as stated Exam - Constitutional Vitals: Period Temp Pulse Resp BP Sys/Herrera Pulse Ox Last 24 Hr 97 F-97 F 73-73 18-20 99-99/42-42 98-98 General appearance: normal weight, no acute distress - Head Head exam: Present: normal inspection - Eye Eye exam: Present: EOMI Pupils: Present: NEIL - ENT ENT exam: Present: normal exam - Neck Neck exam: Present: normal inspection - Respiratory Respiratory exam: Present: clear to auscultation bilaterally - Cardiovascular Cardiovascular exam: Present: systolic murmur (4 out of 6) - GI/Abdominal GI/Abdominal exam: Present: normal bowel sounds - Extremities Exam Extremities exam: Present: edema (Patient has chronic edema in her lower extremities and upper thighs) - Back Exam Back exam: Present: normal inspection - Neurological Exam Neurological exam: Present: alert, oriented X3 - Psychiatric Psychiatric exam: Present: depressed - Skin Skin exam: Present: other (Patient has various scratch burks over her hyper pigmented lesions diffusely over her arms) Results - Labs CBC & BMP: 05/25/17 00:48 05/25/17 00:48 Quality Measures - Stroke Symptom Onset Unknown: Yes
[2017-05-25] MEDS ORDERED: MORPHINE 2 MG/1 ML SYRINGE IV PRN (04:32)
[2017-05-25] MEDS ORDERED: INSULIN REGULAR 100 UNIT/ML SUBCUT ONE (04:32)
[2017-05-25 07:17] LABS: Risk Ratio 18.91
[2017-05-25] MEDS ORDERED: HEPARIN 5,000 UNIT/1 ML VIAL ONE (07:23)
--- NOTE | 2017-05-25 07:27 | EKG Report ---
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
[2017-05-25] MEDS: HEPARIN 5,000 UNIT/1 ML VIAL SUBCUT SCH ×3 (07:28→22:27)
--- NOTE | 2017-05-25 07:37 | XRay Report ---
XR chest 1V portable Indication: Chest pain Comparison: Chest x-ray May 03, 2017 Technique: Single frontal view of the chest. Findings: Continued cardiomegaly. Continued prominent calcified mediastinal and hilar lymph nodes. Continued right lower lung atelectasis/consolidation with elevation of the right hemidiaphragm. Underlying infection not excluded. Visualized osseous and surrounding soft tissue structures appear grossly unchanged. IMPRESSION: As above. PROCEDURE INTERPRETED AT [facility] DEPARTMENT OF RADIOLOGY Final Report Signed by: Dr Bhupendra Carey
[2017-05-25] MEDS ORDERED: NITROGLYCERIN 2% OINT 1 INCH/GM PACK TOP ONE (07:49)
[2017-05-25] MEDS: NITROGLYCERIN 2% OINT 1 INCH/GM PACK TOP SCH ×3 (07:53→18:15)
[2017-05-25] MEDS: ASPIRIN EC 325 MG TABLET PO SCH (09:07)
[2017-05-25] MEDS ORDERED: PANTOPRAZOLE 40 MG TABLET PO ONE (09:11)
[2017-05-25] MEDS: PANTOPRAZOLE 40 MG TABLET PO SCH (09:14)
--- NOTE | 2017-05-25 10:50 | EKG Report ---
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
--- NOTE | 2017-05-25 12:37 | Cardiology Consult Note ---
Assessment and Plan - Time spent with patient Time spent with patient: Greater than 30 minutes (due to assessment, plan, and documentation) (1) Atypical chest pain Status: Acute Assessment and plan: See plan of care listed below. Current Visit: Yes (2) End stage renal disease on dialysis Status: Chronic Assessment and plan: See plan of care listed below. Current Visit: Yes (3) Hypertension Status: Chronic Assessment and plan: See plan of care listed below. Current Visit: No (4) Diabetes mellitus Status: Chronic Assessment and plan: See plan of care listed below. Current Visit: No (5) Volume overload Status: Acute Assessment and plan: See plan of care listed below. Current Visit: No (6) Skin rash Status: Acute Assessment and plan: See plan of care listed below. Current Visit: No (7) Itching Status: Acute Assessment and plan: See plan of care listed below. Current Visit: No (8) Noncompliance Status: Acute Assessment and plan: See plan of care listed below. Current Visit: Yes (9) CHF (congestive heart failure) Status: Chronic Assessment and plan: See plan of care listed below. Current Visit: Yes Qualifiers: Congestive heart failure type: systolic Congestive heart failure chronicity : acute on chronic Qualified Code(s): I50.23 - Acute on chronic systolic ( congestive) heart failure History of Present Illness - Data of Consult Patient: known to practice within the last 3 years Consult date: 05/25/17 Requesting Physician: Antoni Bryant - Consult Narrative Reason for consult: atypical chest pain History of present illness: Scrapper: Dr. Jones Ms. De Dios is a 66 y/o BF with a history of AR, hypertension, CVA, IDDM, thyroid disorder, COPD, KASI (reports using CPAP occasionally), end-stage renal disease on dialysis Wednesday. She is a very poor historian. Echocardiogram 05/04/2017 reveals EF 25%, mild biatrial enlargement mild to moderate MR, moderate AI, moderate TR, mild NM. She has stress test on November with Dr. Jones. He did not feel she had any ischemia at the time, but it did show some scarring. She continues to smoke, stating one pack will last her about 2 days. She lives alone and uses a cane for assistance with ambulation. When asked whether or not she takes her medicines, she replies, "when I think about it." She reports she sometimes misses a day of her medications a couple times a week. Ms. Leone presented to the emergency room early this morning for complaints of chest pain. Upon my interview, she she is unable to describe the pain to me reporting, "it just hurts." Upon review of her other records, she describes the pain as pressure but also occasionally sharp pain. She reports the pain came on yesterday and lasted for 3-4 hours and progressively worsened prompting her visit to the emergency room. She can identify no aggravating factors and reports it was relieved whenever she arrived here received medications. This pain is reproducible to palpation and is located on her right chest wall, midsternal region, and left chest wall. She also complains of shortness of breath ongoing for the past 6 months, reporting it comes and goes but is worse with exertion. She also states that she is unable to lie flat at night and has been having to sit up on the couch at night to sleep the past several months. She also complains of umbilical pain and back pain. She states her back pain hurts all the way down the middle from the top to the bottom and comes on whenever she is walking. She states she has not had much of an appetite for the past couple days. Ms. De Dios is noted to have some bilateral thigh edema and mild abdominal edema. BNP is 2297. Creatinine 6.8, potassium 3.7, magnesium 3.0. Her troponins have been negative. Lipid panel reveals triglycerides 135, total cholesterol 208, LDL 187, HDL 11. H&H is stable at 11.4 and 31.5. When she was discharged from the hospital earlier this month, she was discharged home on aspirin, beta-tanya, ARB. Unsure if she is still taking these medications. Dr. French to follow with further plan and addendum. IMPRESSION/PLAN: 1. ATYPICAL CHEST PAIN: Will continue to cycle cardiac biomarkers and EKGs. Current EKG does not show no acute ST change from previous. Suspect this is musculoskeletal in etiology. 2. ESRD ON DIALYSIS: Nephrology has been consulted. She dialyzes TTS. 3. HYPERTENSION: She has been slightly hypotensive since admission with SBP in the 90s. Home medications are not confirmed. Will continue to monitor and adjust medications accordingly. 4. DIABETES MELLITUS: She was started on accuchecks with sliding scale insulin. 5. VOLUME OVERLOAD: She was just discharged on 05/10/17 from being treated for acute on chronic SCHF and required dialysis several days in a row to improve her volume overload. 6. SKIN RASH: Will defer management to attending. 7. ITCHING: Will defer management to attending. 8. NONCOMPLIANCE: Patient reports missing medications, unsure how often she actually takes her medications as she is a very poor historian. 9. ACUTE ON CHRONIC SYSTOLIC CHF: Continue ASA. Blood pressure will currently not allow the addition of beta tanya or ARB. Patient will likely require dialysis to help remove excess fluid. CC: - Home Medications and Allergies Home Medications: Home Medications Medication Instructions Recorded Confirmed Type Insulin Aspart Prot/Asp 70/30 20 unit SUBCUT AC SUPPER 09/25/15 05/04/17 History [NovoLOG Mix 70/30] Insulin Aspart Prot/Asp 70/30 40 unit SUBCUT AC BREAKFAST 09/25/15 05/04/17 History [NovoLOG Mix 70/30] Levothyroxine Tab [Synthroid Tab] 25 mcg PO DAILY 09/25/15 05/04/17 History Albuterol Sulfate [Ventolin HFA] 2 puff INH Q4H 03/03/16 05/04/17 History Aspirin Tab 325 mg PO DAILY #30 tablet 05/10/17 Rx Carvedilol [Coreg] 3.125 mg PO BID W/MEALS #60 tablet 05/10/17 Rx Ciprofloxacin Tab [Cipro Tab] 500 mg PO DAILY #5 tablet 05/10/17 Rx Losartan [Cozaar] 25 mg PO DAILY #30 tablet 05/10/17 Rx Lotion (Mary) [Mary Lotion] 1 applic TOP DAILY applic 05/10/17 Rx diphenhydrAMINE CAP [Benadryl Cap] 25 mg PO BEDTIME PRN capsule 05/10/17 Rx diphenhydrAMINE CAP [Benadryl Cap] 25 mg PO Q4H PRN capsule 05/10/17 Rx Doxycycline Monohydrate [Avidoxy] 100 mg PO [id number] 05/25/17 History Hydrocodone/Acetaminophen [[place] 1 each PO QID PRN 05/25/17 History 10-325 Tablet] Lubiprostone [Amitiza] 8 mcg PO BID 05/25/17 History Tramadol HCl [Tramadol Tab] 50 mg PO Q6H PRN 05/25/17 History Triamcinolone 0.1% Oint [Kenalog 1 applic TOP BID PRN 05/25/17 History Oint 0.1%] Allergies/Adverse Reactions: Allergies Allergy/AdvReac Type Severity Reaction Status Date / Time No Known Allergies Allergy Verified 12/04/16 06:17 Review of systems: - Constitutional: Present: fatigue, As per HPI. Absent: anorexia, chills, daytime sleepiness, excessive sweating, fever(s), frequent falls, headache(s), increased appetite, lethargy, malaise, night sweats, stops breathing during sleep, weakness, weight gain, weight loss, . - EENT Eyes: Present: As per HPI. Absent: blurry vision, diplopia, loss of vision Ears: Present: As per HPI. Absent: decreased hearing, ear discharge, ear pain Nose, mouth and throat: Present: As per HPI. Absent: dysphagia, epistaxis, headache(s), hoarseness, lip swelling, nasal congestion, neck mass, neck pain, sinus pressure, sore throat, throat swelling, tongue swelling, vertigo - Cardiovascular: Present: chest pain at rest, dyspnea, dyspnea on exertion, edema, as per HPI. Absent: chest pain with activity, claudication, diaphoresis , radiating jaw, neck or arm pain, lightheadedness, orthopnea, palpitations, PND - Respiratory: Present: dyspnea, dyspnea on exertion, as per HPI. Absent: cough , hemoptysis, wheezing, snoring, pain on inspiration - Gastrointestinal: Present: abdominal edema, As per HPI. Absent: abdominal pain , bloating, change in bowel habits, constipation, diarrhea, heartburn, hematemesis, hematochezia, loose stools, melena, nausea, vomiting - Genitourinary: Present: As per HPI. Absent: difficulty urinating, dysuria, flank pain, hematuria, nocturia, urinary frequency, urinary incontinence - Musculoskeletal: Present: back pain, As per HPI. Absent: arthralgias, joint swelling, limited range of motion, muscle cramps, muscle weakness, myalgias - Neurological: Present: As per HPI. Absent: abnormal speech, behavioral changes , confusion, convulsions, disequilibrium, dizziness, focal weakness, frequent falls, headache(s), memory loss, numbness, paresthesias, radicular pain, syncope , tremor(s) - Psychiatric: Present: As per HPI. Absent: anxiety, confusion, depression, panic attacks - Endocrine: Present: fatigue, As per HPI. Absent: cold intolerance, heat intolerance, polydipsia, polyphagia - Hematologic/Lymphatic: Present: As per HPI. Absent: easy bleeding, easy bruising, lymphadenopathy Medical,Surgical,& Family Hx - Medical History Cardio: History of: CHF, Hypertension, AR (1997) Neurology: History of: Cerebrovascular Accident (1998) No history of: Seizures HEENT: History of: Eye Problem (Glasses) No history of: Ear Problem, Dental Problems, HEENT Problems Endocrine: History of: Diabetes Mellitus (IDDM), Dyslipidemia, Thyroid Disorder Rheumatology: History of;: Rheumatoid Arthritis Respiratory: History of: COPD, Obstructive Sleep Apnea (CPAP), Respiratory Problems (SHORTNESS OF BREATH; ?No Flu Vac per daughter) Renal: History of: Dialysis (WedSINUS) Genitourinary: No history of: Problems Gastrointestinal: History of: GI Problems (CONSTIPATION) No history of: Liver Problems Hematology: No history of: Blood Transfusion Reaction (No Transfusions) Other: History of: Miscellaneous Medical Problems (ESRD on dialysis with LEFT GRAFT) No history of: Anesthesia Reactions, Cancer - Surgical History HEENT Surgeries: Surgical HX of: Eye Surgery (LASER BILATERAL) Abdominal Surgeries: Surgical HX of: Abdominal Surgery Reproductive Surgeries: Surgical HX of;: Breast Surgery (BX) - Family History Family History: Reports;: Family Cancer (Siblings), Family Diabetes (Mom and siblings), Family Heart Disease (father) - Social History Smoking Status: Current every day smoker (smokes 1 pack every 2 days) Frequency of Alcohol Use: None Type of Drug Use: None Marital Status: Single Lives With:: Alone Functional capacity: uses cane/walker Physical Examination Vital Signs Temp Pulse Resp BP Pulse Ox 97 F L 73 20 99/42 98 05/24/17 23:56 05/24/17 23:56 05/24/17 23:56 05/24/17 23:56 05/24/17 23:56 Exam: General appearance: Appears well. Pleasant and cooperative. Overweight, no acute distress. Head exam: Present: normal inspection, normocephalic, atraumatic. Absent: hematoma, laceration Eye exam: Present: EOMI. Absent: conjunctival injection, nystagmus, periorbital swelling, scleral icterus, laceration to eyelids, jaundice Pupils: Present: PERRL. Absent: constricted, dilated, fixed, irregular, unequal ENT exam: Present: normal exam, normal external ear exam, mucous membranes moist. Neck exam: Present: normal inspection, midline trachea. Absent: masses, lymphadenopathy, tenderness, thyromegaly Respiratory exam: Present: clear to auscultation bilaterally. Absent: accessory muscle use, chest wall tenderness, rales, rhonchi, wheezing. Cardiovascular exam: Present: regular rate and rhythm. Systolic murmur. Absent : gallop, JVD, rubs GI/Abdominal exam: Present: normal bowel sounds, soft. Absent: distended, firm , hernia, mass, tenderness. Extremities exam: Present: No Clubbing, No Cyanosis, Upper Extr. Pulses 2+, Lower Extr. Pulses 2+, Bilateral thigh edema. Capillary refill less than 3 seconds. Musculoskeletal: Present: No Fluid Collection, No Pain, Normal Range of Motion Back exam: Present: normal inspection. Absent: muscle spasm, vertebral tenderness Neurological exam: Present: awake, alert, oriented X3, Moves all extremities well without hemiparesis or paralysis. Grossly intact without resting or essential tremor Psychiatric exam: Present: normal affect, normal mood Skin exam: Present: normal color, warm, dry, intact, rash. Absent: cyanosis, diaphoretic Result/EKG - Labs CBC & BMP: 05/25/17 00:48 05/25/17 00:48 Lab Results: I have reviewed the past 24 hour labs Labs: Laboratory Results - last 24 hr 05/25/17 05/25/17 05/25/17 00:40 00:48 00:48 WBC RBC Hgb Hct MCV MCH MCHC RDW Plt Count Neut % (Auto) Lymph % (Auto) [place] % (Auto) Eos % (Auto) Baso % (Auto) Neut # (Auto) Lymph # (Auto) [place] # (Auto) Eos # (Auto) Baso # (Auto) Immature Gran % Nucleated RBC % Immature Gran # Nucleated RBCs # Platelet Estimate Immature Plt Fraction Hypochromasia Anisocytosis Target Cells INR 1.1 PT Patient/Control Mix 11.6 Sodium 133 L Potassium 3.7 Chloride 95 L Carbon Dioxide 28 Anion Gap 13.7 BUN 57 H Creatinine 6.80 H GFR Calculation 0 BUN/Creatinine Ratio 8.00 Glucose 160 H POC Glucose Calculated Osmolality 284.4 Calcium 8.7 Magnesium Total Bilirubin 8.90 H AST 81 H ALT 42 Alkaline Phosphatase 556 H Troponin I B-Natriuretic Peptide Total Protein 6.9 Albumin 2.3 L Globulin 4.6 H Albumin/Globulin Ratio 0.5 L Triglycerides 135 Cholesterol 208 H LDL Cholesterol 187.0 VLDL Cholesterol 27.0 HDL Cholesterol 11 L Heart Disease Risk Ratio 18.91 Amylase 64 Lipase 395.0 H 05/25/17 05/25/17 05/25/17 00:48 00:48 00:48 WBC 8.8 RBC 3.41 L Hgb 11.4 L Hct 31.5 L MCV 92.4 MCH 33 MCHC 36.2 H RDW 20.5 H Plt Count 159 Neut % (Auto) 73.1 Lymph % (Auto) 11.0 L [place] % (Auto) 12.2 Eos % (Auto) 2.6 Baso % (Auto) 0.6 Neut # (Auto) 6.4 Lymph # (Auto) 1.0 L [place] # (Auto) 1.1 H Eos # (Auto) 0.2 Baso # (Auto) 0.1 Immature Gran % 0.5 Nucleated RBC % 0.2 Immature Gran # 0.04 Nucleated RBCs # 0.02 Platelet Estimate Adequate Immature Plt Fraction 0.0 Hypochromasia 1+ Anisocytosis 1+ Target Cells 1+ INR PT Patient/Control Mix Sodium Potassium Chloride Carbon Dioxide Anion Gap BUN Creatinine GFR Calculation BUN/Creatinine Ratio Glucose POC Glucose Calculated Osmolality Calcium Magnesium Total Bilirubin AST ALT Alkaline Phosphatase Troponin I 0.029 B-Natriuretic Peptide 2297 H Total Protein Albumin Globulin Albumin/Globulin Ratio Triglycerides Cholesterol LDL Cholesterol VLDL Cholesterol HDL Cholesterol Heart Disease Risk Ratio Amylase Lipase 05/25/17 05/25/17 05/25/17 00:48 07:15 07:28 WBC RBC Hgb Hct MCV MCH MCHC RDW Plt Count Neut % (Auto) Lymph % (Auto) [place] % (Auto) Eos % (Auto) Baso % (Auto) Neut # (Auto) Lymph # (Auto) [place] # (Auto) Eos # (Auto) Baso # (Auto) Immature Gran % Nucleated RBC % Immature Gran # Nucleated RBCs # Platelet Estimate Immature Plt Fraction Hypochromasia Anisocytosis Target Cells INR PT Patient/Control Mix Sodium Potassium Chloride Carbon Dioxide Anion Gap BUN Creatinine GFR Calculation BUN/Creatinine Ratio Glucose POC Glucose 156 H Calculated Osmolality Calcium Magnesium 3.0 H Total Bilirubin AST ALT Alkaline Phosphatase Troponin I 0.028 B-Natriuretic Peptide Total Protein Albumin Globulin Albumin/Globulin Ratio Triglycerides Cholesterol LDL Cholesterol VLDL Cholesterol HDL Cholesterol Heart Disease Risk Ratio Amylase Lipase - EKG EKG results: interpreted by me, sinus rhythm Quality Measures - Stroke Symptom Onset Unknown: Yes
[2017-05-25] MEDS ORDERED: LIDOCAINE/PRILOCAINE CREAM 5 GM TUBE TOP PRN (13:04)
--- NOTE | 2017-05-25 13:59 | Dialysis Note ---
Dialysis Note - Dialysis Note Ms. Martinez is seen in the beginning of her dialysis. Hopefully we can remove volume as she exhibits signs of significant edema. She will use her left upper arm access
--- NOTE | 2017-05-25 14:14 | Nephrology Consult Note ---
History of Present Illness Chief complaint: Admitted for chest pain, referred for ESRD on CHD History of present illness: Ms. De Dios is a 66 year old female with known ASCAD, s/p IN in past. 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 Seen on dialysis. Onset SOB/chest pain last night. ESRD due to presumed diabetic nephropathy. On CHD TTS at [facility] via [facility]. Last HD on Wednesday s complications. EDW 69kg. Midsternal chest pain, with radiation to back. Home Medications Medication Instructions Recorded Confirmed Type Insulin Aspart Prot/Asp 70/30 20 unit SUBCUT AC SUPPER 09/25/15 05/04/17 History [NovoLOG Mix 70/30] Insulin Aspart Prot/Asp 70/30 40 unit SUBCUT AC BREAKFAST 09/25/15 05/04/17 History [NovoLOG Mix 70/30] Levothyroxine Tab [Synthroid Tab] 25 mcg PO DAILY 09/25/15 05/04/17 History Albuterol Sulfate [Ventolin HFA] 2 puff INH Q4H 03/03/16 05/04/17 History Aspirin Tab 325 mg PO DAILY #30 tablet 05/10/17 Rx Carvedilol [Coreg] 3.125 mg PO BID W/MEALS #60 tablet 05/10/17 Rx Ciprofloxacin Tab [Cipro Tab] 500 mg PO DAILY #5 tablet 05/10/17 Rx Losartan [Cozaar] 25 mg PO DAILY #30 tablet 05/10/17 Rx Lotion (Mary) [Mary Lotion] 1 applic TOP DAILY applic 05/10/17 Rx diphenhydrAMINE CAP [Benadryl Cap] 25 mg PO BEDTIME PRN capsule 05/10/17 Rx diphenhydrAMINE CAP [Benadryl Cap] 25 mg PO Q4H PRN capsule 05/10/17 Rx Doxycycline Monohydrate [Avidoxy] 100 mg PO [id number] 05/25/17 History Hydrocodone/Acetaminophen [[place] 1 each PO QID PRN 05/25/17 History 10-325 Tablet] Lubiprostone [Amitiza] 8 mcg PO BID 05/25/17 History Tramadol HCl [Tramadol Tab] 50 mg PO Q6H PRN 05/25/17 History Triamcinolone 0.1% Oint [Kenalog 1 applic TOP BID PRN 05/25/17 History Oint 0.1%] Allergies Allergy/AdvReac Type Severity Reaction Status Date / Time No Known Allergies Allergy Verified 12/04/16 06:17 Medical,Surgical,& Family Hx - Medical History Cardio: History of: CHF, CAD, Hypertension, IN (1997) Neurology: History of: Cerebrovascular Accident (1998) No history of: Seizures HEENT: History of: Eye Problem (Glasses) No history of: Ear Problem, Dental Problems, HEENT Problems Endocrine: History of: Diabetes Mellitus (IDDM), Dyslipidemia, Thyroid Disorder Rheumatology: History of;: Rheumatoid Arthritis Respiratory: History of: COPD, Obstructive Sleep Apnea (CPAP), Respiratory Problems (SHORTNESS OF BREATH; ?No Flu Vac per daughter) Renal: History of: Dialysis (Wed FRESINUS) Genitourinary: No history of: Problems Gastrointestinal: History of: GI Problems (CONSTIPATION) No history of: Liver Problems Hematology: No history of: Blood Transfusion Reaction (No Transfusions) Other: History of: Miscellaneous Medical Problems (ESRD on dialysis with LEFT GRAFT) No history of: Anesthesia Reactions, Cancer - Surgical History HEENT Surgeries: Surgical HX of: Eye Surgery (LASER BILATERAL) Abdominal Surgeries: Surgical HX of: Abdominal Surgery Reproductive Surgeries: Surgical HX of;: Breast Surgery (BX) - Family History Family History: Reports;: Family Cancer (Siblings), Family Diabetes (Mom and siblings), Family Heart Disease (father) - Social History Smoking Status: Current every day smoker (smokes 1 pack every 2 days) Frequency of Alcohol Use: None Type of Drug Use: None Exam - Vital Signs Vital signs: Period Temp Pulse Resp BP Sys/Herrera Pulse Ox Last 24 Hr 97 F-97.4 F 69-73 16-20 93-99/39-47 98-100 - General Appearance General appearance: well-developed, well-nourished, chronically ill EENT: ATNC, PERRL, mucous membranes dry, hearing intact, vision intact Neck: no JVD, no thyromegaly Respiratory: no kyphosis, clear Cardiology: no murmurs, no rub, edema (4+ to midthighs bilat. ) Gastrointestinal: normoactive bowel sounds, no tenderness Integumentary: rash (papular/nodular lesions on bilat upper arms, seen by derm, biopsied ?calciphylaxis), warm and dry Neurologic: no focal deficit, no asterixis, alert and oriented x3 Musculoskeletal: no deformities, no erythema Psychiatric: mood/affect appropriate, cooperative Results - Labs CBC & BMP: 05/25/17 00:48 05/25/17 00:48 Assessment and Plan (1) ASCVD (arteriosclerotic cardiovascular disease) Status: Acute Assessment and plan: No contraindication for contrast with angiography. Current Visit: Yes (2) End stage renal disease on dialysis Status: Chronic Assessment and plan: Next dialysis scheduled for . Current Visit: Yes (3) Diabetes mellitus Status: Chronic Current Visit: No
[2017-05-25] MEDS ORDERED: traMADol 50 MG TABLET PO PRN (18:18)
[2017-05-25] MEDS ORDERED: diphenhydrAMINE CAP 25 MG CAPSULE PO PRN (18:18)
[2017-05-25] MEDS ORDERED: TRIAMCINOLONE 0.1% OINT 15 GM TUBE TOP PRN (18:18)
[2017-05-25] MEDS: INSULIN ASPART PROTAMINE/ASPART 70/30 100 UNIT/ML SUBCUT SCH (18:55)
[2017-05-25] MEDS: ALBUTEROL 2.5 MG/3 ML NEB RESP TX SCH (21:09)
[2017-05-25] MEDS: LUBIPROSTONE 8 MCG CAPSULE PO SCH (22:26)
[2017-05-25] MEDS: CARVEDILOL 3.125 MG TABLET PO SCH (22:27)
[2017-05-25] MEDS: DOXYCYCLINE HYCLATE 100 MG CAPSULE PO SCH (22:37)
[2017-05-26] MEDS: ALBUTEROL 2.5 MG/3 ML NEB RESP TX SCH ×7 (00:14→23:40)
[2017-05-26] MEDS: NITROGLYCERIN 2% OINT 1 INCH/GM PACK TOP SCH ×2 (00:41→06:04)
[2017-05-26] MEDS: HEPARIN 5,000 UNIT/1 ML VIAL SUBCUT SCH ×3 (05:51→21:40)
--- NOTE | 2017-05-26 07:38 | EKG Report ---
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
[2017-05-26] MEDS ORDERED: CIPROFLOXACIN 500 MG TABLET PO SCH (09:00)
[2017-05-26] MEDS ORDERED: ASPIRIN 325 MG TABLET PO SCH (09:00)
[2017-05-26] MEDS: INSULIN ASPART PROTAMINE/ASPART 70/30 100 UNIT/ML SUBCUT SCH ×2 (09:10→16:44)
[2017-05-26] MEDS: ASPIRIN EC 325 MG TABLET PO SCH (09:10)
[2017-05-26] MEDS: LEVOTHYROXINE 25 MCG TABLET PO SCH (09:10)
[2017-05-26] MEDS: LUBIPROSTONE 8 MCG CAPSULE PO SCH ×2 (09:10→21:40)
[2017-05-26] MEDS: DOXYCYCLINE HYCLATE 100 MG CAPSULE PO SCH ×2 (09:10→21:40)
[2017-05-26] MEDS: CARVEDILOL 3.125 MG TABLET PO SCH (09:10)
[2017-05-26] MEDS: LOSARTAN 25 MG TABLET PO SCH (09:10)
[2017-05-26] MEDS: PANTOPRAZOLE 40 MG TABLET PO SCH (09:10)
[2017-05-26] MEDS: LOTION (KERI) 236 ML BOTTLE TOP SCH (09:11)
--- NOTE | 2017-05-26 09:44 | Event Note ---
Mr. Chinchilla has severe ischemic cardiomyopathy and has some atypical as well as some typical anginal pain. Her myocardial scan a year and a half ago showed evidence of scarring without ischemia. I suspect she has had some progression of her disease and of offered her heart catheterization. She declines and reports "I does want the medicine". If she does not want heart catheterization noninvasive testing is not needed. I have added high intensity statin therapy, no change her Coreg to Toprol to reduce her risk of hypotension particularly hemodialysis. Her ejection fraction has dropped from mildly reduced to severely reduced in the last year and a half. She has left and right heart failure symptoms with dyspnea increasing for a couple months, and lower extremity edema (not greatly changed by her report) as well as orthopnea.
[2017-05-26 09:58] LABS: Albumin 2.3 G/DL (3.4-5.0); Bilirubin,Direct 6.88 MG/DL (0.0-0.20); Bilirubin,Indirect 1.4 MG/DL (0.0-1.0); Bilirubin,Total 8.3 MG/DL (0.2-1.0); Total Protein 7.3 G/DL (6.4-8.3)
--- NOTE | 2017-05-26 10:01 | Nephrology Progress Note ---
Nephrology - PN: Subj Interval history: Ms De Dios states her chest pain is now only intermittent. She tolerated HD yesterday. Still has 2+ pitting edema to pelvis. EDW 70kg per outpatient HD chart. She declines coronary angiography, max medical management. Appreciate Dr Berg's assistance and expertise. Cardiomyopathy worse with right and left sided failure. Exam (PN)-Nephrology - Vital Signs Vital signs: Period Temp Pulse Resp BP Sys/Herrera Pulse Ox Last 24 Hr 96 F-98.1 F 69-84 16-18 92-113/38-61 95-100 - General Appearance General appearance: well-developed, chronically ill EENT: ATNC, PERRL, mucous membranes dry, hearing intact Neck: no JVD, no thyromegaly Respiratory: no kyphosis, clear Cardiology: no murmurs, no rub, edema Gastrointestinal: normoactive bowel sounds, no tenderness Integumentary: no rash, warm and dry Neurologic: no focal deficit, no asterixis, alert and oriented x3 Musculoskeletal: no deformities, no erythema Psychiatric: mood/affect appropriate, cooperative - Lab 05/25/17 00:48 05/25/17 00:48 Most recent lab results Calcium 8.7 MG/DL (8.5-10.1) 05/25/17 00:48 Magnesium 3.0 MG/DL (1.8-2.4) H 05/25/17 00:48 Assessment and Plan (1) End stage renal disease on dialysis Problem details: Likely still 4-5L up from EDW. Complicated UF removal as right heart failure requires preload for adequate forward flow. Status: Chronic Assessment and plan: UF for 2-3L today as tolerated by hemodynamics. Current Visit: Yes (2) ASCVD (arteriosclerotic cardiovascular disease) Problem details: Appreciate cardiology evaluation and treatment. Status: Acute Current Visit: Yes (3) Diabetes mellitus Status: Chronic Current Visit: No
--- NOTE | 2017-05-26 10:15 | Hospitalist Progress Note ---
Assessment and Plan (1) Elevated liver enzymes Status: Acute Assessment and plan: Total bilirubin is 8 with mildly elevated ast and and alk phos She denies a recent alcohol history, reports that she stopped many years ago Will consult GI to evaluate Current Visit: Yes (2) End stage renal disease on dialysis Problem details: Likely still 4-5L up from EDW. Complicated UF removal as right heart failure requires preload for adequate forward flow. Status: Chronic Assessment and plan: Nephrology assisting HD for fluid removal Current Visit: Yes (3) Hypertension Status: Chronic Assessment and plan: Continue home meds Current Visit: No (4) Diabetes mellitus Status: Chronic Assessment and plan: Home insulin dose Current Visit: No (5) Hyperlipidemia Status: Chronic Current Visit: No (6) Acute on chronic systolic (congestive) heart failure Status: Resolved Assessment and plan: Patient has declined heart cath Cardiology assisting Current Visit: No (7) Atypical chest pain Status: Acute Assessment and plan: Reproducible Current Visit: Yes (8) Noncompliance Status: Acute Current Visit: Yes Hospitalist: Subjective Interval history: No acute events overnight. Reports that she cannot tell a difference in her LE edema. She denies chest pain. Refused labs this morning. Exam - Constitutional Vitals: Period Temp Pulse Resp BP Sys/Herrera Pulse Ox Last 24 Hr 96 F-98.1 F 69-84 16-18 92-113/38-61 95-100 General appearance: normal weight - Head Head exam: Present: normocephalic, atraumatic - Eye Eye exam: Present: EOMI Pupils: Present: NEIL - ENT ENT exam: Present: normal exam - Neck Neck exam: Present: normal inspection - Respiratory Respiratory exam: Present: clear to auscultation bilaterally - Cardiovascular Cardiovascular exam: Present: regular rate and rhythm - GI/Abdominal GI/Abdominal exam: Present: normal bowel sounds, soft. Absent: tenderness, rebound - Extremities Exam Extremities exam: Present: normal inspection - Back Exam Back exam: Present: normal inspection - Neurological Exam Neurological exam: Present: alert, oriented X3 - Psychiatric Psychiatric exam: Present: normal affect, normal mood - Skin Skin exam: Present: warm, intact Results - Labs CBC & BMP: 05/25/17 00:48 05/25/17 00:48 Quality Measures - Stroke Symptom Onset Unknown: No
[2017-05-26] MEDS: METOPROLOL SUCCINATE XL 25 MG TABLET PO SCH ×2 (11:57→21:40)
[2017-05-26] MEDS: ATORVASTATIN 80 MG TABLET PO SCH (12:11)
[2017-05-26] MEDS: ISOSORBIDE MONONITRATE 30 MG TABLET PO SCH (12:11)
--- NOTE | 2017-05-26 13:15 | Gastrointestinal Consult Note ---
Assessment and Plan (1) Elevated liver enzymes Status: Acute Assessment and plan: 05/26-admitted with shortness of breath and edema with findings of elevated LFTs as noted below. No known prior history of liver disease or gallbladder disease in the past. Hepatitis panel and YOAV pending at present time. Will obtain gallbladder ultrasound in the morning to further evaluate. Plan an addendum to followed by Dr. Ohara. Current Visit: Yes History of Present Illness Chief complaint: Hyperbilirubinemia History of present illness: Ms. De Dios is a 66 year old female who was admitted to the hospital on yesterday with complaints of chest pain shortness of breath. Patient has a prior history of end-stage renal disease on dialysis, hypertension, diabetes. Patient is a fair historian therefore information also obtained from chart review. Patient states that she had an increase in shortness of breath as well as swelling and edema to her legs when she presented to the emergency room on yesterday. She had not undergone dialysis since Wednesday of last week. Upon admission, patient has had cardiac evaluation with negative cardiac enzymes noted. She is also noted to have findings of EF of 25% on echocardiogram last month. Patient was noted on admission to have an elevated bilirubin of 8.9. She was noted earlier this month on a prior admission to have a bilirubin of 2 however approximately a year ago she had normal LFTs. Patient has a mild elevation AST of 81 as well as alkaline phosphatase of 556. She also has a mildly elevated lipase at 395. Patient has no prior history of elevated LFTs or bilirubin in the past that she can recall. She has no prior history of gallbladder disease or known liver disease. She states that she did notice several days ago that her eyes became yellow. She very rarely makes urine therefore cannot recall a change in this. She has a history of skin disorders with continued itching therefore cannot recall any increase in this as well. There are no prior imaging reports noted over the last year as well as no imaging noted on admission. Patient denies a history of alcohol use although states she did drink in her earlier years. Home Medications Medication Instructions Recorded Confirmed Type Insulin Aspart Prot/Asp 70/30 20 unit SUBCUT AC SUPPER 09/25/15 05/25/17 History [NovoLOG Mix 70/30] Insulin Aspart Prot/Asp 70/30 40 unit SUBCUT AC BREAKFAST 09/25/15 05/25/17 History [NovoLOG Mix 70/30] Levothyroxine Tab [Synthroid Tab] 25 mcg PO DAILY 09/25/15 05/25/17 History Albuterol Sulfate [Ventolin HFA] 2 puff INH Q4H 03/03/16 05/25/17 History Aspirin Tab 325 mg PO DAILY #30 tablet 05/10/17 05/25/17 Rx Carvedilol [Coreg] 3.125 mg PO BID W/MEALS #60 tablet 05/10/17 05/25/17 Rx Losartan [Cozaar] 25 mg PO DAILY #30 tablet 05/10/17 05/25/17 Rx Lotion (Mary) [Mary Lotion] 1 applic TOP DAILY applic 05/10/17 05/25/17 Rx diphenhydrAMINE CAP [Benadryl Cap] 25 mg PO Q4H PRN capsule 05/10/17 05/25/17 Rx Doxycycline Monohydrate [Avidoxy] 100 mg PO [id number] 05/25/17 05/25/17 History Hydrocodone/Acetaminophen [[place] 1 each PO QID PRN 05/25/17 05/25/17 History 10-325 Tablet] Lubiprostone [Amitiza] 8 mcg PO BID 05/25/17 05/25/17 History Tramadol HCl [Tramadol Tab] 50 mg PO Q6H PRN 05/25/17 05/25/17 History Triamcinolone 0.1% Oint [Kenalog 1 applic TOP BID PRN 05/25/17 05/25/17 History Oint 0.1%] Allergies Allergy/AdvReac Type Severity Reaction Status Date / Time No Known Allergies Allergy Verified 12/04/16 06:17 Medical,Surgical,& Family Hx - Medical History Cardio: History of: CHF, CAD, Hypertension, RI (1997) Neurology: History of: Cerebrovascular Accident (1998) No history of: Seizures HEENT: History of: Eye Problem (Glasses) No history of: Ear Problem, Dental Problems, HEENT Problems Endocrine: History of: Diabetes Mellitus (IDDM), Dyslipidemia, Thyroid Disorder Rheumatology: History of;: Rheumatoid Arthritis Respiratory: History of: COPD, Obstructive Sleep Apnea (CPAP), Respiratory Problems (SHORTNESS OF BREATH; ?No Flu Vac per daughter) Renal: History of: [facility] Genitourinary: No history of: Problems Gastrointestinal: History of: GI Problems (CONSTIPATION) No history of: Liver Problems Hematology: No history of: Blood Transfusion Reaction (No Transfusions) Other: History of: Miscellaneous Medical Problems (ESRD on dialysis with LEFT GRAFT) No history of: Anesthesia Reactions, Cancer - Surgical History HEENT Surgeries: Surgical HX of: Eye Surgery (LASER BILATERAL) Abdominal Surgeries: Surgical HX of: Abdominal Surgery Reproductive Surgeries: Surgical HX of;: Breast Surgery (BX) - Family History Family History: Reports;: Family Cancer (Siblings), Family Diabetes (Mom and siblings), Family Heart Disease (father) - Social History Smoking Status: Current every day smoker Frequency of Alcohol Use: None Type of Drug Use: None 12 point system: reviewed and no additional remarkable complaints except as stated - Constitutional Constitutional: Present: as per HPI - EENT Eyes: Present: as per HPI Ears: Present: as per HPI Nose, mouth and throat: Present: as per HPI - Cardiovascular Cardiovascular: Present: as per HPI, edema - Respiratory Respiratory: Present: as per HPI, dyspnea - Gastrointestinal Gastrointestinal: Present: as per HPI - Genitourinary Genitourinary: Present: as per HPI - Musculoskeletal Musculoskeletal: Present: as per HPI - Neurological Neurological: Present: as per HPI - Psychiatric Psychiatric: Present: as per HPI - Endocrine Endocrine: Present: as per HPI - Hematologic/Lymphatic Hematologic/Lymphatic: Present: as per HPI Exam - Constitutional Vitals: Period Temp Pulse Resp BP Sys/Herrera Pulse Ox Last 24 Hr 96 F-98.3 F 69-84 16-18 92-113/38-61 95-96 General appearance: normal weight, no acute distress - Head Head exam: Present: normal inspection, normocephalic - Eye Eye exam: Present: scleral icterus, other (Lids and conjunctive are unremarkable ) - ENT ENT exam: Present: normal exam, normal oropharynx - Neck Neck exam: Present: normal inspection - Respiratory Respiratory exam: Present: clear to auscultation bilaterally. Absent: rales, rhonchi, wheezes - Cardiovascular Cardiovascular exam: Present: regular rate and rhythm. Absent: diastolic murmur , JVD, systolic murmur - GI/Abdominal GI/Abdominal exam: Present: normal bowel sounds, soft. Absent: ascites, distended, mass, organomegaly, tenderness - Extremities Exam Extremities exam: Present: normal inspection, full ROM - Back Exam Back exam: Present: normal inspection - Neurological Exam Neurological exam: Present: alert, oriented X3 - Psychiatric Psychiatric exam: Present: normal affect, normal mood - Skin Skin exam: Present: normal color, warm, dry Results - Labs CBC & BMP: 05/25/17 00:48 05/25/17 00:48 Lab Results: I have reviewed the past 24 hour labs Quality Measures - Stroke Symptom Onset Unknown: No
--- NOTE | 2017-05-26 14:20 | Cardiology Progress Note ---
Assessment and Plan - Time spent with patient Time spent with patient: Less than 30 minutes (1) Atypical chest pain Status: Acute Assessment and plan: See plan of care listed below. Current Visit: Yes (2) End stage renal disease on dialysis Problem details: Likely still 4-5L up from EDW. Complicated UF removal as right heart failure requires preload for adequate forward flow. Status: Chronic Assessment and plan: See plan of care listed below. Current Visit: Yes (3) Hypertension Status: Chronic Assessment and plan: See plan of care listed below. Current Visit: No (4) Diabetes mellitus Status: Chronic Assessment and plan: See plan of care listed below. Current Visit: No (5) Volume overload Status: Acute Assessment and plan: See plan of care listed below. Current Visit: No (6) Skin rash Status: Acute Assessment and plan: See plan of care listed below. Current Visit: No (7) Itching Status: Acute Assessment and plan: See plan of care listed below. Current Visit: No (8) Noncompliance Status: Acute Assessment and plan: See plan of care listed below. Current Visit: Yes (9) CHF (congestive heart failure) Status: Chronic Assessment and plan: See plan of care listed below. Current Visit: Yes Qualifiers: Congestive heart failure type: systolic Congestive heart failure chronicity : acute on chronic Qualified Code(s): I50.23 - Acute on chronic systolic ( congestive) heart failure Cardiology - PN: Subj Interval history: Laboratory Coordinator: Dr. Jones SUMMARY: Ms. De Dios is a 66 y/o BF who presented to the emergency room on 05/25 for complaints of chest pain. She has severe ischemic cardiomyopathy and has some atypical as well as some typical anginal pain. Her myocardial scan a year and a half ago showed evidence of scarring without ischemia. It is suspected that she has had some progression of her disease. She was offered left heart catheterization but she declined reporting, "I does want the medicine." If she does not want heart catheterization noninvasive testing is not needed. Her ejection fraction has dropped from mildly reduced to severely reduced in the last year and a half. 2016: She reports she is not feeling very well today. She complains that no one has come to take her to dialysis yet. Her vital signs have been stable with borderline low blood pressures this morning. Her bilirubin was noted to be elevated, as was her ALP and GI was consulted. She was started on high intensity statin therapy and her Coreg was changed to Toprol to reduce her risk of hypotension, particularly with hemodialysis. We will continue to monitor. Dr. French to follow with further plan and addendum. IMPRESSION/PLAN: 1. ATYPICAL CHEST PAIN: She has severe ischemic cardiomyopathy and has some atypical as well as some typical anginal pain. It is suspected that she has had progression of her disease but she declines heart catheterization. We have increased her medical therapy. 2. ESRD ON DIALYSIS: Nephrology has been consulted. She dialyzes TTS. She is dialyzing today in an attempt to pull off extra fluid. 3. HYPERTENSION: She has been slightly hypotensive since admission with SBP in the 90s. Will continue to monitor and adjust medications accordingly. 4. DIABETES MELLITUS: She was started on accuchecks with sliding scale insulin. 5. VOLUME OVERLOAD: She was just discharged on 05/10/17 from being treated for acute on chronic SCHF and required dialysis several days in a row to improve her volume overload. 6. SKIN RASH: Will defer management to attending. 7. ITCHING: Will defer management to attending. 8. NONCOMPLIANCE: Patient reports missing medications, unsure how often she actually takes her medications as she is a very poor historian. 9. ACUTE ON CHRONIC SYSTOLIC CHF: Continue ASA. Blood pressure will currently not allow the addition of beta tanya or ARB. Exam (Progress Note) - Constitutional Vitals: Period Temp Pulse Resp BP Sys/Herrera Pulse Ox Last 24 Hr 96 F-98.3 F 69-84 16-18 92-113/38-61 95-96 Exam: General appearance: Appears well. Pleasant and cooperative. Overweight, no acute distress. Head exam: Present: normal inspection, normocephalic, atraumatic. Absent: hematoma, laceration Eye exam: Present: EOMI. Absent: conjunctival injection, nystagmus, periorbital swelling, scleral icterus, laceration to eyelids, jaundice Pupils: Present: PERRL. Absent: constricted, dilated, fixed, irregular, unequal ENT exam: Present: normal exam, normal external ear exam, mucous membranes moist. Neck exam: Present: normal inspection, midline trachea. Absent: masses, lymphadenopathy, tenderness, thyromegaly Respiratory exam: Present: clear to auscultation bilaterally. Absent: accessory muscle use, chest wall tenderness, rales, rhonchi, wheezing. Cardiovascular exam: Present: regular rate and rhythm. Systolic murmur. Absent : gallop, JVD, rubs GI/Abdominal exam: Present: normal bowel sounds, soft. Absent: distended, firm , hernia, mass, tenderness. Extremities exam: Present: No Clubbing, No Cyanosis, Upper Extr. Pulses 2+, Lower Extr. Pulses 2+, Bilateral thigh edema. Capillary refill less than 3 seconds. Musculoskeletal: Present: No Fluid Collection, No Pain, Normal Range of Motion Back exam: Present: normal inspection. Absent: muscle spasm, vertebral tenderness Neurological exam: Present: awake, alert, oriented X3, Moves all extremities well without hemiparesis or paralysis. Grossly intact without resting or essential tremor Psychiatric exam: Present: normal affect, normal mood Skin exam: Present: normal color, warm, dry, intact, rash. Absent: cyanosis, diaphoretic Result/EKG - Labs CBC & BMP: 05/25/17 00:48 05/25/17 00:48 Lab Results: I have reviewed the past 24 hour labs Labs: Laboratory Results - last 24 hr 05/25/17 05/25/17 05/26/17 21:02 22:26 08:01 POC Glucose 165 H 164 H 205 H Total Bilirubin Direct Bilirubin Indirect Bilirubin AST ALT Alkaline Phosphatase Total Protein Albumin 05/26/17 05/26/17 09:23 11:06 POC Glucose 120 H Total Bilirubin 8.30 H Direct Bilirubin 6.880 H Indirect Bilirubin 1.4 H AST 84 H ALT 44 Alkaline Phosphatase 555 H Total Protein 7.3 Albumin 2.3 L - EKG EKG results: interpreted by me, sinus rhythm Quality Measures - Stroke Symptom Onset Unknown: No
[2017-05-26] MEDS ORDERED: DEXTROSE 50% 25 GM/50 ML SYRINGE IV ONE (16:45)
--- NOTE | 2017-05-26 18:33 | Dialysis Note ---
Dialysis Note - Dialysis Note Patient seen on dialysis. She is tolerating the procedure. Blood pressure is 114/56. Cardiovascular is regular rate. Lungs clear to auscultation. Abdomen soft.
[2017-05-26 19:21] LABS: Hepatitis A Ab IgM Quant 0.22 Index; Hepatitis A Ab IgM Result Negative (Negative); Hepatitis B Core IgM Quant 0.13 Index; Hepatitis B Core IgM Result Negative (Negative); Hepatitis B Surface Ag Result Negative (Negative); Hepatitis C Virus Ab Quant 0.11 Index; Hepatitis C Virus Ab Result Negative (Negative)
[2017-05-27] MEDS: ALBUTEROL 2.5 MG/3 ML NEB RESP TX SCH ×6 (04:10→23:51)
[2017-05-27] MEDS: HEPARIN 5,000 UNIT/1 ML VIAL SUBCUT SCH ×4 (05:58→21:15)
[2017-05-27 06:03] LABS: Basophils % 0.4 % (0.0-0.8); Eosinophils # 0.3 10*3/uL (0.0-0.87); Eosinophils % 3.7 % (0.00-10.9); Hematocrit 31.6 VOL% (35.7-47.0); Hemoglobin 11.2 GM/DL (12.0-16.0); Immature Granulocytes % 0.6 %; Immature Granulocytes Absolute 0.05 #; Lymphocytes # 0.9 10*3/uL (1.4-4.0); Lymphocytes % 11.2 % (21.3-54.2); Mean Corpuscular HGB Conc 35.4 GM/DL (32-36); Mean Corpuscular Hemoglobin 33 PG (27-34); Mean Platelet Volume 13.2 FL (9.6-12.0); Monocytes % 11.8 % (1.7-12.7); NRBC # 0.04 10*3/uL; Neutrophils # 5.9 10*3/uL (1.4-7.4); Neutrophils % 72.3 % (38.7-73.9); Red Blood Count 3.36 MC/CUMM (3.8-5.5); Red Cell Distribution Width 20.4 % (9.3-17.3); White Blood Count 8.2 T/CUMM (4-12)
[2017-05-27 06:05] LABS: Platelet Count 109 T/CUMM (130-400)
[2017-05-27 06:34] LABS: Albumin 2.1 G/DL (3.4-5.0); Bilirubin,Direct 6.04 MG/DL (0.0-0.20); Bilirubin,Indirect 0.9 MG/DL (0.0-1.0); Bilirubin,Total 6.9 MG/DL (0.2-1.0); Total Protein 6.4 G/DL (6.4-8.3)
[2017-05-27 06:57] LABS: Calcium 8.7 MG/DL (8.5-10.1); Magnesium 2.7 MG/DL (1.8-2.4); Osmolality,Calculated 277.4 MOS/KG (273-304); Potassium 3.6 MMOL/L (3.5-5.1)
--- NOTE | 2017-05-27 07:36 | Ultrasound Report ---
Exam: US abdomen Date:05/27/2017 4:00 AM Indication: Elevated bilirubin liver function test. Comparison: 05/25/2013 Findings: Liver: Liver is approximately 15 cm. No focal abnormalities hepatic and portal veins are patent. Gallbladder: Sludge and debris within the gallbladder. No obvious wall thickening noted. No pericholecystic fluid or sonographic White sign noted. CBD: 4 mm Pancreas: Normal size shape and configuration Kidneys Right kidney: 5.9 x 3.4 x 3.3 cm. No hydronephrosis perinephric fluid collections or focal mass with normal color flow Left kidney: 6.5 x 3.2 x 2.8 cm. No hydronephrosis perinephric fluid collections present. Normal color flow Aorta IVC: IVC is patent. The aorta is partially obscured. Spleen: 10.9 x 3.7 x 4.5 cm. Ascites: None Impression: 1. Sludge and debris within the gallbladder 2. Slightly atrophic kidneys bilaterally 3. Obscured aorta Ultrasound images were stored and captured PROCEDURE INTERPRETED AT [facility] Final Report Signed by: Dr. Elie Britton
--- NOTE | 2017-05-27 07:45 | Hospitalist Progress Note ---
Assessment and Plan (1) End stage renal disease on dialysis Problem details: HD today. 3 hrs. 2L UF as tolerated by hemodynamics. Status: Chronic Assessment and plan: Recurrent episodes of volume expansion. Current Visit: Yes (2) ASCVD (arteriosclerotic cardiovascular disease) Problem details: Appreciate cardiology evaluation and treatment. Status: Chronic Assessment and plan: Reduced global left ventricular systolic performance (25% April 2017) with mild pulmonary hypertension. Current Visit: Yes (3) Elevated liver enzymes Status: Acute Assessment and plan: Pattern of cholestasis associated with biliary sludge. GI evaluation underway Current Visit: Yes Hospitalist: Subjective Interval history: 66-year-old female who has been admitted and readmitted in the last month for recurrent volume overload. She has a reduced left ventricular systolic performance on echocardiogram done last month with moderate pulmonary hypertension in addition to advanced renal failure requiring chronic renal replacement therapy. Issues with compliance are strongly considered. Patient is undergoing serial dialysis for volume contraction. She has had abnormal liver function tests with elevation of the bilirubin level and the alkaline phosphatase. Gallbladder ultrasound done earlier this morning indicates sludge within the gallbladder. Her vital signs were stable overnight she is afebrile. She still feels as though she is volume expanded. Exam - Constitutional Vitals: Period Temp Pulse Resp BP Sys/Herrera Pulse Ox Last 24 Hr 97.1 F-98.3 F 63-76 16-18 93-114/47-61 96-98 General appearance: normal weight - Respiratory Respiratory exam: Present: clear to auscultation bilaterally. Absent: rales, rhonchi, wheezes - Cardiovascular Cardiovascular exam: Present: regular rate and rhythm - GI/Abdominal GI/Abdominal exam: Present: normal bowel sounds. Absent: tenderness - Extremities Exam Extremities exam: Absent: edema - Neurological Exam Neurological exam: Present: alert, oriented X3 Results - Labs CBC & BMP: 05/27/17 05:26 05/27/17 05:26 Labs: Total bilirubin 6.9 direct bilirubin 6.0 AST 87 Alkaline phosphatase 562 Albumin 2.1 Quality Measures - Stroke Symptom Onset Unknown: No
[2017-05-27] MEDS: ASPIRIN EC 325 MG TABLET PO SCH (09:17)
[2017-05-27] MEDS: LUBIPROSTONE 8 MCG CAPSULE PO SCH ×2 (09:17→21:15)
[2017-05-27] MEDS: LOSARTAN 25 MG TABLET PO SCH (09:17)
[2017-05-27] MEDS: DOXYCYCLINE HYCLATE 100 MG CAPSULE PO SCH ×2 (09:17→21:15)
[2017-05-27] MEDS: LEVOTHYROXINE 25 MCG TABLET PO SCH (09:17)
[2017-05-27] MEDS: ATORVASTATIN 80 MG TABLET PO SCH (09:17)
[2017-05-27] MEDS: PANTOPRAZOLE 40 MG TABLET PO SCH (09:17)
[2017-05-27] MEDS: ISOSORBIDE MONONITRATE 30 MG TABLET PO SCH (09:17)
[2017-05-27] MEDS: METOPROLOL SUCCINATE XL 25 MG TABLET PO SCH ×2 (09:17→21:15)
[2017-05-27] MEDS: LOTION (KERI) 236 ML BOTTLE TOP SCH (09:20)
[2017-05-27] MEDS: INSULIN ASPART PROTAMINE/ASPART 70/30 100 UNIT/ML SUBCUT SCH ×2 (09:24→17:27)
--- NOTE | 2017-05-27 09:27 | Nephrology Progress Note ---
Nephrology - PN: Subj Interval history: Pt states she slept well. Denies pain. Exam (PN)-Nephrology - Vital Signs Vital signs: Period Temp Pulse Resp BP Sys/Herrera Pulse Ox Last 24 Hr 97.1 F-98.3 F 56-76 16-18 97-114/40-56 95-98 - General Appearance General appearance: well-developed, well-nourished EENT: ATNC, PERRL Neck: no JVD, no thyromegaly Respiratory: no kyphosis, clear Cardiology: no murmurs, no rub Gastrointestinal: normoactive bowel sounds, no tenderness Integumentary: no rash, warm and dry Neurologic: no focal deficit, no asterixis, alert and oriented x3 Musculoskeletal: no deformities, no erythema Psychiatric: mood/affect appropriate, cooperative - Lab 05/27/17 05:26 05/27/17 05:26 Most recent lab results Calcium 8.7 MG/DL (8.5-10.1) 05/27/17 05:26 Magnesium 2.7 MG/DL (1.8-2.4) H 05/27/17 05:26 Assessment and Plan (1) End stage renal disease on dialysis Problem details: HD today. 3 hrs. 2L UF as tolerated by hemodynamics. Status: Chronic Assessment and plan: UF for 2-3L today as tolerated by hemodynamics. Current Visit: Yes (2) ASCVD (arteriosclerotic cardiovascular disease) Problem details: Appreciate cardiology evaluation and treatment. Status: Chronic Assessment and plan: I asked if I could talk her into having coronary angiography. She states no. Current Visit: Yes (3) Diabetes mellitus Status: Chronic Current Visit: No
--- NOTE | 2017-05-27 11:49 | Gastrointestinal Progress Note ---
Assessment and Plan (1) Elevated liver enzymes Status: Acute Assessment and plan: 05/27-bilirubin is 6 today. Abdominal ultrasound results noted as below. Continued pruritus. Plan an addendum to followed by Dr. Ohara. 05/26-admitted with shortness of breath and edema with findings of elevated LFTs as noted below. No known prior history of liver disease or gallbladder disease in the past. Hepatitis panel and YOAV pending at present time. Will obtain gallbladder ultrasound in the morning to further evaluate. Plan an addendum to followed by Dr. Ohara. Current Visit: Yes Gastroenterology - PN: Subj Interval history: CC: Hyperbilirubinemia Patient is seen sitting on the edge of bed eating breakfast. States she had an uneventful night. She does states she generally just does not feel well today. She denies any abdominal pain, nausea vomiting. Her ultrasound this morning was noted to show some gallbladder sludge with a normal common bile duct 4. Bilirubin is noted to be at 6 with AST of 87 alkaline phosphate 562.. Hepatitis panel as well as YOAV is negative. Abdomen is soft, nontender. She is for dialysis today. ROS: Denies shortness of breath or chest pain Exam (Progress Note) - Constitutional Vitals: Period Temp Pulse Resp BP Sys/Herrera Pulse Ox Last 24 Hr 97.1 F-98.3 F 56-77 16-18 97-114/40-56 95-98 - Other Additional findings: General appearance: normal weight, no acute distress - Head Head exam: Present: normal inspection, normocephalic - Eye Eye exam: Present: scleral icterus, other (Lids and conjunctive are unremarkable ) - ENT ENT exam: Present: normal exam, normal oropharynx - Neck Neck exam: Present: normal inspection - Respiratory Respiratory exam: Present: clear to auscultation bilaterally. Absent: rales, rhonchi, wheezes - Cardiovascular Cardiovascular exam: Present: regular rate and rhythm. Absent: diastolic murmur , JVD, systolic murmur - GI/Abdominal GI/Abdominal exam: Present: normal bowel sounds, soft. Absent: ascites, distended, mass, organomegaly, tenderness - Extremities Exam Extremities exam: Present: normal inspection, full ROM - Back Exam Back exam: Present: normal inspection - Neurological Exam Neurological exam: Present: alert, oriented X3 - Psychiatric Psychiatric exam: Present: normal affect, normal mood - Skin Skin exam: Present: normal color, warm, dry Results - Labs CBC & BMP: 05/27/17 05:26 05/27/17 05:26 Lab Results: I have reviewed the past 24 hour labs
--- NOTE | 2017-05-27 14:06 | Cardiology Progress Note ---
Assessment and Plan - Time spent with patient Time spent with patient: Less than 30 minutes (1) Atypical chest pain Status: Acute Assessment and plan: See plan of care listed below. Current Visit: Yes (2) End stage renal disease on dialysis Problem details: HD today. 3 hrs. 2L UF as tolerated by hemodynamics. Status: Chronic Assessment and plan: See plan of care listed below. Current Visit: Yes (3) Hypertension Status: Chronic Assessment and plan: See plan of care listed below. Current Visit: No (4) Diabetes mellitus Status: Chronic Assessment and plan: See plan of care listed below. Current Visit: No (5) Volume overload Status: Acute Assessment and plan: See plan of care listed below. Current Visit: No (6) Skin rash Status: Acute Assessment and plan: See plan of care listed below. Current Visit: No (7) Itching Status: Acute Assessment and plan: See plan of care listed below. Current Visit: No (8) Noncompliance Status: Acute Assessment and plan: See plan of care listed below. Current Visit: Yes (9) CHF (congestive heart failure) Status: Chronic Assessment and plan: See plan of care listed below. Current Visit: Yes Qualifiers: Congestive heart failure type: systolic Congestive heart failure chronicity : acute on chronic Qualified Code(s): I50.23 - Acute on chronic systolic ( congestive) heart failure Cardiology - PN: Subj Interval history: Environmental Communications Specialist: Dr. Jones SUMMARY: Ms. De Dios is a 66 y/o BF who presented to the emergency room on 05/25 for complaints of chest pain. She has severe ischemic cardiomyopathy and has some atypical as well as some typical anginal pain. Her myocardial scan a year and a half ago showed evidence of scarring without ischemia. It is suspected that she has had some progression of her disease. She was offered left heart catheterization but she declined reporting, "I does want the medicine." If she does not want heart catheterization noninvasive testing is not needed. Her ejection fraction has dropped from mildly reduced to severely reduced in the last year and a half. 2016: Ms. De Dios is seen on dialysis today. She denies any episodes of chest pain. She was started on high intensity statin therapy and her Coreg was changed to Toprol to reduce her risk of hypotension, particularly with hemodialysis. She does have some borderline hypotension, but thus far has been able to tolerate her medications. We will continue to monitor. Dr. French to follow with further plan and addendum. IMPRESSION/PLAN: 1. ATYPICAL CHEST PAIN: She has severe ischemic cardiomyopathy and has some atypical as well as some typical anginal pain. It is suspected that she has had progression of her disease but she declines heart catheterization. We have increased her medical therapy. 2. ESRD ON DIALYSIS: Nephrology has been consulted. She dialyzes TTS. She is dialyzing again today in an attempt to pull off extra fluid. BNP is coming down. 3. HYPERTENSION: She has been slightly hypotensive since admission with SBP in the 90s-100s. Will continue to monitor and adjust medications accordingly. 4. DIABETES MELLITUS: She was started on accuchecks with sliding scale insulin. 5. VOLUME OVERLOAD: She was just discharged on 05/10/17 from being treated for acute on chronic SCHF and required dialysis several days in a row to improve her volume overload. 6. SKIN RASH: Will defer management to attending. 7. ITCHING: Will defer management to attending. 8. NONCOMPLIANCE: Patient reports missing medications, unsure how often she actually takes her medications as she is a very poor historian. 9. ACUTE ON CHRONIC SYSTOLIC CHF: Continue ASA, beta tanya, ARB. Exam (Progress Note) - Constitutional Vitals: Period Temp Pulse Resp BP Sys/Herrera Pulse Ox Last 24 Hr 97.1 F-98.1 F 56-77 16-18 97-114/40-56 95-98 Exam: General appearance: Appears well. Pleasant and cooperative. Overweight, no acute distress. Head exam: Present: normal inspection, normocephalic, atraumatic. Absent: hematoma, laceration Eye exam: Present: EOMI. Absent: conjunctival injection, nystagmus, periorbital swelling, scleral icterus, laceration to eyelids, jaundice Pupils: Present: PERRL. Absent: constricted, dilated, fixed, irregular, unequal ENT exam: Present: normal exam, normal external ear exam, mucous membranes moist. Neck exam: Present: normal inspection, midline trachea. Absent: masses, lymphadenopathy, tenderness, thyromegaly Respiratory exam: Present: clear to auscultation bilaterally. Absent: accessory muscle use, chest wall tenderness, rales, rhonchi, wheezing. Cardiovascular exam: Present: regular rate and rhythm. Systolic murmur. Absent : gallop, JVD, rubs GI/Abdominal exam: Present: normal bowel sounds, soft. Absent: distended, firm , hernia, mass, tenderness. Extremities exam: Present: No Clubbing, No Cyanosis, Upper Extr. Pulses 2+, Lower Extr. Pulses 2+, Bilateral thigh edema. Capillary refill less than 3 seconds. Musculoskeletal: Present: No Fluid Collection, No Pain, Normal Range of Motion Back exam: Present: normal inspection. Absent: muscle spasm, vertebral tenderness Neurological exam: Present: awake, alert, oriented X3, Moves all extremities well without hemiparesis or paralysis. Grossly intact without resting or essential tremor Psychiatric exam: Present: normal affect, normal mood Skin exam: Present: normal color, warm, dry, intact, rash. Absent: cyanosis, diaphoretic Result/EKG - Labs CBC & BMP: 05/27/17 05:26 05/27/17 05:26 Lab Results: I have reviewed the past 24 hour labs Labs: Laboratory Results - last 24 hr 05/26/17 05/26/17 05/26/17 15:59 16:39 17:03 WBC RBC Hgb Hct MCV MCH MCHC RDW Plt Count MPV Neut % (Auto) Lymph % (Auto) Daniels % (Auto) Eos % (Auto) Baso % (Auto) Neut # (Auto) Lymph # (Auto) Daniels # (Auto) Eos # (Auto) Baso # (Auto) Immature Gran % Nucleated RBC % Immature Gran # Nucleated RBCs # Immature Plt Fraction Sodium Potassium Chloride Carbon Dioxide Anion Gap BUN Creatinine GFR Calculation BUN/Creatinine Ratio Glucose POC Glucose 47 L* 50 L 166 H Calculated Osmolality Calcium Magnesium Total Bilirubin Direct Bilirubin Indirect Bilirubin AST ALT Alkaline Phosphatase B-Natriuretic Peptide Total Protein Albumin YOAV Screen Hepatitis A IgM Ab Hep Bs Antigen Hep B Core IgM Ab Hepatitis C Antibody 05/26/17 05/26/17 05/26/17 17:34 19:04 20:52 WBC RBC Hgb Hct MCV MCH MCHC RDW Plt Count MPV Neut % (Auto) Lymph % (Auto) Daniels % (Auto) Eos % (Auto) Baso % (Auto) Neut # (Auto) Lymph # (Auto) Daniels # (Auto) Eos # (Auto) Baso # (Auto) Immature Gran % Nucleated RBC % Immature Gran # Nucleated RBCs # Immature Plt Fraction Sodium Potassium Chloride Carbon Dioxide Anion Gap BUN Creatinine GFR Calculation BUN/Creatinine Ratio Glucose POC Glucose 58 L 58 L Calculated Osmolality Calcium Magnesium Total Bilirubin Direct Bilirubin Indirect Bilirubin AST ALT Alkaline Phosphatase B-Natriuretic Peptide Total Protein Albumin YOAV Screen Negative (<1:160) Hepatitis A IgM Ab Negative Hep Bs Antigen Negative Hep B Core IgM Ab Negative Hepatitis C Antibody Negative 05/26/17 05/26/17 05/27/17 22:17 23:53 04:32 WBC RBC Hgb Hct MCV MCH MCHC RDW Plt Count MPV Neut % (Auto) Lymph % (Auto) Daniels % (Auto) Eos % (Auto) Baso % (Auto) Neut # (Auto) Lymph # (Auto) Daniels # (Auto) Eos # (Auto) Baso # (Auto) Immature Gran % Nucleated RBC % Immature Gran # Nucleated RBCs # Immature Plt Fraction Sodium Potassium Chloride Carbon Dioxide Anion Gap BUN Creatinine GFR Calculation BUN/Creatinine Ratio Glucose POC Glucose 67 L 100 110 H Calculated Osmolality Calcium Magnesium Total Bilirubin Direct Bilirubin Indirect Bilirubin AST ALT Alkaline Phosphatase B-Natriuretic Peptide Total Protein Albumin YOAV Screen Hepatitis A IgM Ab Hep Bs Antigen Hep B Core IgM Ab Hepatitis C Antibody 05/27/17 05/27/17 05/27/17 05:26 05:26 05:26 WBC 8.2 RBC 3.36 L Hgb 11.2 L Hct 31.6 L MCV 94.0 MCH 33 MCHC 35.4 RDW 20.4 H Plt Count 109 L D MPV 13.2 H Neut % (Auto) 72.3 Lymph % (Auto) 11.2 L Daniels % (Auto) 11.8 Eos % (Auto) 3.7 Baso % (Auto) 0.4 Neut # (Auto) 5.9 Lymph # (Auto) 0.9 L Daniels # (Auto) 1.0 H Eos # (Auto) 0.3 Baso # (Auto) 0.0 Immature Gran % 0.6 Nucleated RBC % 0.5 Immature Gran # 0.05 Nucleated RBCs # 0.04 Immature Plt Fraction 0.0 Sodium 133 L Potassium 3.6 Chloride 94 L Carbon Dioxide 25 Anion Gap 17.6 H BUN 50 H Creatinine 6.50 H GFR Calculation 7 BUN/Creatinine Ratio 7.00 Glucose 88 POC Glucose Calculated Osmolality 277.4 Calcium 8.7 Magnesium 2.7 H Total Bilirubin 6.90 H Direct Bilirubin 6.040 H Indirect Bilirubin 0.9 AST 87 H ALT 39 Alkaline Phosphatase 562 H B-Natriuretic Peptide Total Protein 6.4 Albumin 2.1 L YOAV Screen Hepatitis A IgM Ab Hep Bs Antigen Hep B Core IgM Ab Hepatitis C Antibody 05/27/17 05/27/17 05/27/17 05:26 05:47 07:43 WBC RBC Hgb Hct MCV MCH MCHC RDW Plt Count MPV Neut % (Auto) Lymph % (Auto) Daniels % (Auto) Eos % (Auto) Baso % (Auto) Neut # (Auto) Lymph # (Auto) Daniels # (Auto) Eos # (Auto) Baso # (Auto) Immature Gran % Nucleated RBC % Immature Gran # Nucleated RBCs # Immature Plt Fraction Sodium Potassium Chloride Carbon Dioxide Anion Gap BUN Creatinine GFR Calculation BUN/Creatinine Ratio Glucose POC Glucose 132 H 136 H Calculated Osmolality Calcium Magnesium Total Bilirubin Direct Bilirubin Indirect Bilirubin AST ALT Alkaline Phosphatase B-Natriuretic Peptide 2069 H Total Protein Albumin YOAV Screen Hepatitis A IgM Ab Hep Bs Antigen Hep B Core IgM Ab Hepatitis C Antibody 05/27/17 05/27/17 09:23 11:02 WBC RBC Hgb Hct MCV MCH MCHC RDW Plt Count MPV Neut % (Auto) Lymph % (Auto) Daniels % (Auto) Eos % (Auto) Baso % (Auto) Neut # (Auto) Lymph # (Auto) Daniels # (Auto) Eos # (Auto) Baso # (Auto) Immature Gran % Nucleated RBC % Immature Gran # Nucleated RBCs # Immature Plt Fraction Sodium Potassium Chloride Carbon Dioxide Anion Gap BUN Creatinine GFR Calculation BUN/Creatinine Ratio Glucose POC Glucose 122 H 143 H Calculated Osmolality Calcium Magnesium Total Bilirubin Direct Bilirubin Indirect Bilirubin AST ALT Alkaline Phosphatase B-Natriuretic Peptide Total Protein Albumin YOAV Screen Hepatitis A IgM Ab Hep Bs Antigen Hep B Core IgM Ab Hepatitis C Antibody - EKG EKG results: interpreted by me, sinus rhythm Quality Measures - Stroke Symptom Onset Unknown: No
--- NOTE | 2017-05-27 14:50 | Dialysis Note ---
Dialysis Note - Dialysis Note Ms. Martinez is seen during hemodialysis. She is resting today and tolerating dialysis fairly well with a stable blood pressure.
[2017-05-28] MEDS: ALBUTEROL 2.5 MG/3 ML NEB RESP TX SCH ×6 (02:50→23:46)
[2017-05-28] MEDS: HEPARIN 5,000 UNIT/1 ML VIAL SUBCUT SCH ×3 (05:56→20:43)
--- NOTE | 2017-05-28 07:15 | Hospitalist Progress Note ---
Assessment and Plan (1) End stage renal disease on dialysis Problem details: HD today. 3 hrs. 2L UF as tolerated by hemodynamics. Status: Chronic Assessment and plan: Recurrent episodes of volume expansion. Receiving frequent dialysis as inpatient for volume contraction. Current Visit: Yes (2) ASCVD (arteriosclerotic cardiovascular disease) Problem details: Appreciate cardiology evaluation and treatment. Status: Chronic Assessment and plan: Reduced global left ventricular systolic performance (25% April 2017) with mild pulmonary hypertension. History of obstructive sleep apnea. Current Visit: Yes (3) Elevated liver enzymes Status: Acute Assessment and plan: Pattern of cholestasis associated with biliary sludge. GI evaluation underway Current Visit: Yes Hospitalist: Subjective Interval history: 66-year-old female with several admissions in the last several months for recurrent volume overload. She has reduced left ventricular systolic performance on echocardiogram done in April with moderate pulmonary hypertension in addition to chronic renal insufficiency and renal replacement therapy requirements. Issues with compliance or rub considered strongly. Patient also has a diagnosis of obstructive sleep apnea with a chronic cholestatic hepatic picture. Her gallbladder ultrasound shows sludge without stones. She is receiving frequent dialysis for volume contraction. This morning she states that she does not feel well; primarily again describing a sensation of shortness of breath with equivocal respire aphasic features. Her overnight vital signs are stable she does show some nocturnal desaturation. Exam - Constitutional Vitals: Period Temp Pulse Resp BP Sys/Herrera Pulse Ox Last 24 Hr 97.3 F-98.1 F 56-77 16-18 90-114/38-57 91-97 General appearance: normal weight - Respiratory Respiratory exam: Present: clear to auscultation bilaterally. Absent: rales, rhonchi, wheezes - Cardiovascular Cardiovascular exam: Present: regular rate and rhythm - GI/Abdominal GI/Abdominal exam: Present: normal bowel sounds - Neurological Exam Neurological exam: Present: alert, oriented X3 - Psychiatric Psychiatric exam: Present: depressed - Skin Skin exam: Present: other (Upper and lower extremity hyperpigmented changes with subcutaneous thickening) Results - Labs CBC & BMP: 05/27/17 05:26 05/27/17 05:26 Quality Measures - Stroke Symptom Onset Unknown: No
[2017-05-28] MEDS: INSULIN ASPART PROTAMINE/ASPART 70/30 100 UNIT/ML SUBCUT SCH ×2 (08:07→16:36)
[2017-05-28] MEDS: LOSARTAN 25 MG TABLET PO SCH (09:55)
[2017-05-28 10:01] LABS: Basophils % 0.4 % (0.0-0.8); Eosinophils # 0.2 10*3/uL (0.0-0.87); Eosinophils % 3.3 % (0.00-10.9); Hemoglobin 11.2 GM/DL (12.0-16.0); Immature Granulocytes % 0.6 %; Immature Granulocytes Absolute 0.04 #; Lymphocytes # 0.6 10*3/uL (1.4-4.0); Lymphocytes % 8.7 % (21.3-54.2); Mean Corpuscular Hemoglobin 33 PG (27-34); Mean Corpuscular Volume 94.1 FL (87-102); Mean Platelet Volume 13.9 FL (9.6-12.0); Monocytes # 0.7 10*3/uL (0.11-0.8); Monocytes % 10.2 % (1.7-12.7); NRBC # 0.02 10*3/uL; Neutrophils # 5.4 10*3/uL (1.4-7.4); Neutrophils % 76.8 % (38.7-73.9); Platelet Count 101 T/CUMM (130-400); Red Cell Distribution Width 20.9 % (9.3-17.3); White Blood Count 7.1 T/CUMM (4-12)
[2017-05-28 10:11] LABS: INR 1.1
--- NOTE | 2017-05-28 10:12 | Gastrointestinal Progress Note ---
<Leelee Wise - Last Filed: 05/28/17 10:09> Assessment and Plan (1) Elevated liver enzymes Status: Acute Assessment and plan: 05/26-awaiting lab results at this time. Continue n.p.o. status for present time due to possible consideration for ERCP if necessary. Further plan an addendum to followed by Dr. Ohara 05/27-bilirubin is 6 today. Abdominal ultrasound results noted as below. Continued pruritus. Plan an addendum to followed by Dr. Ohara. 05/26-admitted with shortness of breath and edema with findings of elevated LFTs as noted below. No known prior history of liver disease or gallbladder disease in the past. Hepatitis panel and YOAV pending at present time. Will obtain gallbladder ultrasound in the morning to further evaluate. Plan an addendum to followed by Dr. Ohara. Current Visit: Yes Gastroenterology - PN: Subj Interval history: CC: Elevated LFTs, bilirubin Patient is seen asleep in bed. She is somewhat agitated upon awakening due to states she is not being allowed to sleep "in his hospital". Patient denies any reports of abdominal pain, nausea vomiting at this time. She is being held n.p.o. overnight awaiting results of repeat LFTs today. This is still pending at this time. Further lab work is also pending. Abdomen is soft, nontender. ROS: Denies shortness of breath or chest pain Exam (Progress Note) - Constitutional Vitals: Period Temp Pulse Resp BP Sys/Herrera Pulse Ox Last 24 Hr 97.3 F-99.0 F 65-77 16-20 90-114/38-57 91-98 - Other Additional findings: General appearance: normal weight, no acute distress - Head Head exam: Present: normal inspection, normocephalic - Eye Eye exam: Present: scleral icterus, other (Lids and conjunctive are unremarkable ) - ENT ENT exam: Present: normal exam, normal oropharynx - Neck Neck exam: Present: normal inspection - Respiratory Respiratory exam: Present: clear to auscultation bilaterally. Absent: rales, rhonchi, wheezes - Cardiovascular Cardiovascular exam: Present: regular rate and rhythm. Absent: diastolic murmur , JVD, systolic murmur - GI/Abdominal GI/Abdominal exam: Present: normal bowel sounds, soft. Absent: ascites, distended, mass, organomegaly, tenderness - Extremities Exam Extremities exam: Present: normal inspection, full ROM - Back Exam Back exam: Present: normal inspection - Neurological Exam Neurological exam: Present: alert, oriented X3 - Psychiatric Psychiatric exam: Present: normal affect, normal mood - Skin Skin exam: Present: normal color, warm, dry Results - Labs CBC & BMP: 05/27/17 05:26 05/27/17 05:26 Lab Results: I have reviewed the past 24 hour labs <Elie Ohara - Last Filed: 05/28/17 15:27> Exam (Progress Note) - Constitutional Vitals: Period Temp Pulse Resp BP Sys/Herrera Pulse Ox Last 24 Hr 97.3 F-99.0 F 64-72 16-20 90-114/38-57 91-98 Results - Labs CBC & BMP: 05/28/17 09:43 05/28/17 09:43
[2017-05-28] MEDS: PANTOPRAZOLE 40 MG TABLET PO SCH (10:38)
[2017-05-28 10:42] LABS: Albumin 2.2 G/DL (3.4-5.0); Calcium 8.5 MG/DL (8.5-10.1); Osmolality,Calculated 273.7 MOS/KG (273-304); Total Protein 6.7 G/DL (6.4-8.3)
[2017-05-28 10:43] LABS: Bilirubin,Total 6.9 MG/DL (0.2-1.0)
[2017-05-28 10:54] LABS: Albumin 2.1 G/DL (3.4-5.0); Bilirubin,Direct 3.91 MG/DL (0.0-0.20); Bilirubin,Indirect 3.1 MG/DL (0.0-1.0); Total Protein 6.9 G/DL (6.4-8.3)
--- NOTE | 2017-05-28 11:25 | Nephrology Progress Note ---
Nephrology - PN: Subj Interval history: PT tolerated routine CHD yesterday s complications (three days consecutively). She is being evaluated for elevated LAEs. She c/o wanting something to eat. Exam (PN)-Nephrology - Vital Signs Vital signs: Period Temp Pulse Resp BP Sys/Herrera Pulse Ox Last 24 Hr 97.3 F-99.0 F 65-77 16-20 90-114/38-57 91-98 - General Appearance General appearance: well-developed, chronically ill EENT: ATNC, PERRL, mucous membranes dry, hearing intact, vision intact Neck: no JVD, no thyromegaly Respiratory: no kyphosis, clear Cardiology: mid-systolic murmur, no rub Gastrointestinal: normoactive bowel sounds, no tenderness Integumentary: no rash, warm and dry Neurologic: no focal deficit, no asterixis, alert and oriented x3 Musculoskeletal: no deformities, no erythema Psychiatric: mood/affect appropriate, cooperative - Lab 05/28/17 09:43 05/28/17 09:43 Most recent lab results Calcium 8.5 MG/DL (8.5-10.1) 05/28/17 09:43 Magnesium 2.7 MG/DL (1.8-2.4) H 05/27/17 05:26 Assessment and Plan (1) End stage renal disease on dialysis Problem details: HD tomorrow. 3 hrs. 2L UF as tolerated by hemodynamics. Status: Chronic Assessment and plan: UF as tolerated by hemodynamics. Current Visit: Yes (2) ASCVD (arteriosclerotic cardiovascular disease) Problem details: Appreciate cardiology evaluation and treatment. Status: Chronic Current Visit: Yes (3) Diabetes mellitus Status: Chronic Current Visit: No
--- NOTE | 2017-05-28 11:51 | Cardiology Progress Note ---
Assessment and Plan - Time spent with patient Time spent with patient: Less than 30 minutes (1) Atypical chest pain Status: Acute Assessment and plan: See plan of care listed below. Current Visit: Yes (2) End stage renal disease on dialysis Problem details: HD tomorrow. 3 hrs. 2L UF as tolerated by hemodynamics. Status: Chronic Assessment and plan: See plan of care listed below. Current Visit: Yes (3) Hypertension Status: Chronic Assessment and plan: See plan of care listed below. Current Visit: No (4) Diabetes mellitus Status: Chronic Assessment and plan: See plan of care listed below. Current Visit: No (5) Volume overload Status: Acute Assessment and plan: See plan of care listed below. Current Visit: No (6) Skin rash Status: Acute Assessment and plan: See plan of care listed below. Current Visit: No (7) Itching Status: Acute Assessment and plan: See plan of care listed below. Current Visit: No (8) Noncompliance Status: Acute Assessment and plan: See plan of care listed below. Current Visit: Yes (9) CHF (congestive heart failure) Status: Chronic Assessment and plan: See plan of care listed below. Current Visit: Yes Qualifiers: Congestive heart failure type: systolic Congestive heart failure chronicity : acute on chronic Qualified Code(s): I50.23 - Acute on chronic systolic ( congestive) heart failure Cardiology - PN: Subj Interval history: Manager Forms: Dr. Jones SUMMARY: Ms. De Dios is a 66 y/o BF who presented to the emergency room on 05/25 for complaints of chest pain. She has severe ischemic cardiomyopathy and has some atypical as well as some typical anginal pain. Her myocardial scan a year and a half ago showed evidence of scarring without ischemia. It is suspected that she has had some progression of her disease. She was offered left heart catheterization but she declined reporting, "I does want the medicine." If she does not want heart catheterization noninvasive testing is not needed. Her ejection fraction has dropped from mildly reduced to severely reduced in the last year and a half. 2016: Ms. De Dios is seen in her room today. She was complaining of some epigastric pain earlier and was given Protonix and pain medication. She is currently being held n.p.o. for possible consideration of ERCP with GI. She was started on high intensity statin therapy and her Coreg was changed to Toprol to reduce her risk of hypotension, particularly with hemodialysis. Her blood pressure was a little low this morning. We will hold her dose of Cozaar today and try to resume it tomorrow. Will give her Toprol and Imdur. We will continue to monitor. Dr. French to follow with further plan and addendum. IMPRESSION/PLAN: 1. ATYPICAL CHEST PAIN: She has severe ischemic cardiomyopathy and has some atypical as well as some typical anginal pain. It is suspected that she has had progression of her disease but she declines heart catheterization. We have increased her medical therapy. 2. ESRD ON DIALYSIS: Nephrology has been consulted. She dialyzes TTS. She dialyzed numerous times this hospitalization in an attempt to pull off extra fluid. 3. HYPERTENSION: She has been slightly hypotensive since admission with SBP in the 90s-100s. Will continue to monitor and adjust medications accordingly. 4. DIABETES MELLITUS: She was started on accuchecks with sliding scale insulin. 5. VOLUME OVERLOAD: She was just discharged on 05/10/17 from being treated for acute on chronic SCHF and required dialysis several days in a row to improve her volume overload. 6. SKIN RASH: Will defer management to attending. 7. ITCHING: Will defer management to attending. 8. NONCOMPLIANCE: Patient reports missing medications, unsure how often she actually takes her medications as she is a very poor historian. 9. ACUTE ON CHRONIC SYSTOLIC CHF: Continue ASA, beta tanya, ARB. Exam (Progress Note) - Constitutional Vitals: Period Temp Pulse Resp BP Sys/Herrera Pulse Ox Last 24 Hr 97.3 F-99.0 F 65-72 16-20 90-114/38-57 91-98 Exam: General appearance: Appears well. Pleasant and cooperative. Overweight, no acute distress. Head exam: Present: normal inspection, normocephalic, atraumatic. Absent: hematoma, laceration Eye exam: Present: EOMI. Absent: conjunctival injection, nystagmus, periorbital swelling, scleral icterus, laceration to eyelids, jaundice Pupils: Present: PERRL. Absent: constricted, dilated, fixed, irregular, unequal ENT exam: Present: normal exam, normal external ear exam, mucous membranes moist. Neck exam: Present: normal inspection, midline trachea. Absent: masses, lymphadenopathy, tenderness, thyromegaly Respiratory exam: Present: clear to auscultation bilaterally. Absent: accessory muscle use, chest wall tenderness, rales, rhonchi, wheezing. Cardiovascular exam: Present: regular rate and rhythm. Systolic murmur. Absent : gallop, JVD, rubs GI/Abdominal exam: Present: normal bowel sounds, soft. Absent: distended, firm , hernia, mass, tenderness. Extremities exam: Present: No Clubbing, No Cyanosis, Upper Extr. Pulses 2+, Lower Extr. Pulses 2+, Bilateral thigh edema. Capillary refill less than 3 seconds. Musculoskeletal: Present: No Fluid Collection, No Pain, Normal Range of Motion Back exam: Present: normal inspection. Absent: muscle spasm, vertebral tenderness Neurological exam: Present: awake, alert, oriented X3, Moves all extremities well without hemiparesis or paralysis. Grossly intact without resting or essential tremor Psychiatric exam: Present: normal affect, normal mood Skin exam: Present: normal color, warm, dry, intact, rash. Absent: cyanosis, diaphoretic Result/EKG - Labs CBC & BMP: 05/28/17 09:43 05/28/17 09:43 Lab Results: I have reviewed the past 24 hour labs Labs: Laboratory Results - last 24 hr 05/27/17 05/27/17 05/28/17 15:55 19:31 05:33 WBC RBC Hgb Hct MCV MCH MCHC RDW Plt Count MPV Neut % (Auto) Lymph % (Auto) [place] % (Auto) Eos % (Auto) Baso % (Auto) Neut # (Auto) Lymph # (Auto) [place] # (Auto) Eos # (Auto) Baso # (Auto) Immature Gran % Nucleated RBC % Immature Gran # Nucleated RBCs # Immature Plt Fraction INR PT Patient/Control Mix Sodium Potassium Chloride Carbon Dioxide Anion Gap BUN Creatinine GFR Calculation BUN/Creatinine Ratio Glucose POC Glucose 111 H 154 H 185 H Calculated Osmolality Calcium Total Bilirubin Direct Bilirubin Indirect Bilirubin AST ALT Alkaline Phosphatase Total Protein Albumin Globulin Albumin/Globulin Ratio 05/28/17 05/28/17 05/28/17 07:17 09:43 09:43 WBC 7.1 RBC 3.40 L Hgb 11.2 L Hct 32.0 L MCV 94.1 MCH 33 MCHC 35.0 RDW 20.9 H Plt Count 101 L MPV 13.9 H Neut % (Auto) 76.8 H Lymph % (Auto) 8.7 L [place] % (Auto) 10.2 Eos % (Auto) 3.3 Baso % (Auto) 0.4 Neut # (Auto) 5.4 Lymph # (Auto) 0.6 L [place] # (Auto) 0.7 Eos # (Auto) 0.2 Baso # (Auto) 0.0 Immature Gran % 0.6 Nucleated RBC % 0.3 Immature Gran # 0.04 Nucleated RBCs # 0.02 Immature Plt Fraction 15.8 H INR 1.1 PT Patient/Control Mix 12.0 Sodium Potassium Chloride Carbon Dioxide Anion Gap BUN Creatinine GFR Calculation BUN/Creatinine Ratio Glucose POC Glucose 172 H Calculated Osmolality Calcium Total Bilirubin Direct Bilirubin Indirect Bilirubin AST ALT Alkaline Phosphatase Total Protein Albumin Globulin Albumin/Globulin Ratio 05/28/17 05/28/17 05/28/17 09:43 09:43 11:11 WBC RBC Hgb Hct MCV MCH MCHC RDW Plt Count MPV Neut % (Auto) Lymph % (Auto) [place] % (Auto) Eos % (Auto) Baso % (Auto) Neut # (Auto) Lymph # (Auto) [place] # (Auto) Eos # (Auto) Baso # (Auto) Immature Gran % Nucleated RBC % Immature Gran # Nucleated RBCs # Immature Plt Fraction INR PT Patient/Control Mix Sodium 131 L Potassium 4.0 Chloride 93 L Carbon Dioxide 31 Anion Gap 11.0 BUN 39 H Creatinine 5.20 H GFR Calculation 9 BUN/Creatinine Ratio 7.00 Glucose 148 H POC Glucose 183 H Calculated Osmolality 273.7 Calcium 8.5 Total Bilirubin 6.90 H 7.00 H Direct Bilirubin 3.910 H Indirect Bilirubin 3.1 H AST 96 H 151 H ALT 44 44 Alkaline Phosphatase 578 H 566 H Total Protein 6.7 6.9 Albumin 2.2 L 2.1 L Globulin 4.5 H Albumin/Globulin Ratio 0.4 L - EKG EKG results: interpreted by me, sinus rhythm Quality Measures - Stroke Symptom Onset Unknown: No
[2017-05-28] MEDS: METOPROLOL SUCCINATE XL 25 MG TABLET PO SCH ×2 (12:28→20:43)
[2017-05-28] MEDS: ATORVASTATIN 80 MG TABLET PO SCH (12:37)
[2017-05-28] MEDS: LUBIPROSTONE 8 MCG CAPSULE PO SCH ×2 (12:37→20:43)
[2017-05-28] MEDS: LEVOTHYROXINE 25 MCG TABLET PO SCH (12:37)
[2017-05-28] MEDS: DOXYCYCLINE HYCLATE 100 MG CAPSULE PO SCH ×2 (12:37→20:43)
[2017-05-28] MEDS: LOTION (KERI) 236 ML BOTTLE TOP SCH (12:37)
[2017-05-28] MEDS: ISOSORBIDE MONONITRATE 30 MG TABLET PO SCH (12:37)
[2017-05-29] MEDS: ALBUTEROL 2.5 MG/3 ML NEB RESP TX SCH ×6 (03:00→23:21)
[2017-05-29] MEDS: HEPARIN 5,000 UNIT/1 ML VIAL SUBCUT SCH ×3 (05:25→21:56)
--- NOTE | 2017-05-29 07:29 | Hospitalist Progress Note ---
Assessment and Plan (1) End stage renal disease on dialysis Problem details: HD tomorrow. 3 hrs. 2L UF as tolerated by hemodynamics. Status: Chronic Assessment and plan: Recurrent episodes of volume expansion. Receiving frequent dialysis as inpatient for volume contraction. Current Visit: Yes (2) ASCVD (arteriosclerotic cardiovascular disease) Problem details: Appreciate cardiology evaluation and treatment. Status: Chronic Assessment and plan: Reduced global left ventricular systolic performance (25% April 2017) with mild pulmonary hypertension. History of obstructive sleep apnea. Episode of nonsustained monomorphic ventricular tachycardia document in the company doctor hours 29 May. Current Visit: Yes (3) Elevated liver enzymes Status: Acute Assessment and plan: Pattern of cholestasis associated with biliary sludge. GI evaluation underway Current Visit: Yes Hospitalist: Subjective Interval history: 66-year-old female with end-stage renal disease on chronic renal replacement therapy, reduced left ventricular systolic performance on echocardiogram in April with moderate pulmonary hypertension, and history of obstructive sleep apnea who has been admitted several times over the last several months for recurrent volume overload. She is undergone intensive dialysis with volume contraction during this hospital stay. It is likely that her medical compliance is suboptimal. She was also noted on this admission to have abnormal liver function tests and a cholestatic pattern with GI evaluation thus far indicating the presence of biliary sludge without other positive findings. Her capillary blood glucose is exceptionally tight. Breathing seems to be better earlier today she had a episode of monomorphic ventricular tachycardia lasting 9 beats. Patient has been offered cardiac catheterization but has consistently declined. Exam - Constitutional Vitals: Period Temp Pulse Resp BP Sys/Herrera Pulse Ox Last 24 Hr 97.4 F-99.0 F 64-75 16-20 92-102/37-62 91-99 General appearance: normal weight - Respiratory Respiratory exam: Present: clear to auscultation bilaterally. Absent: rales, rhonchi, wheezes - Cardiovascular Cardiovascular exam: Present: regular rate and rhythm - GI/Abdominal GI/Abdominal exam: Absent: ascites, distended, tenderness - Neurological Exam Neurological exam: Present: alert, oriented X3 - Psychiatric Psychiatric exam: Present: depressed - Skin Skin exam: Present: other (Subcutaneous thickening with upper and lower extremity hyperpigmentation) Results - Labs CBC & BMP: 05/28/17 09:43 05/28/17 09:43 Quality Measures - Stroke Symptom Onset Unknown: No Specialty Discharge - Follow Up or Referrals
[2017-05-29] MEDS: INSULIN ASPART PROTAMINE/ASPART 70/30 100 UNIT/ML SUBCUT SCH ×2 (08:04→16:26)
[2017-05-29 08:56] LABS: Immunoglobulin G 1690 MG/DL (700-1600); Immunoglobulin M 103 MG/DL (40-230)
--- NOTE | 2017-05-29 09:10 | Nephrology Progress Note ---
Nephrology - PN: Subj Interval history: Patient is seen on hemodialysis. She is tolerating this well except she does complain of some chest pain. Assessment/plan 1. End-stage renal disease-we will continue hemodialysis support 2. Chest pain-the patient states she is now ready to have a heart catheterization as was offered to her earlier in the hospitalization. 3. Anemia-patient's hematocrit is 32%. 4. Hypertension this is under control 5. Diabetes mellitus this is controlled Exam (PN)-Nephrology - Vital Signs Vital signs: Period Temp Pulse Resp BP Sys/Herrera Pulse Ox Last 24 Hr 97.1 F-98.9 F 64-89 16-20 92-107/37-62 91-99 - Lab 05/28/17 09:43 05/28/17 09:43 Most recent lab results Calcium 8.5 MG/DL (8.5-10.1) 05/28/17 09:43 Magnesium 2.7 MG/DL (1.8-2.4) H 05/27/17 05:26 Specialty Discharge - Follow Up or Referrals
--- NOTE | 2017-05-29 11:40 | Cardiology Progress Note ---
Assessment and Plan (1) Atypical chest pain Status: Acute Assessment and plan: 1. Ms. Martinez still has intermittent very atypical chest pain tender to palpation over epigastrium xiphoid and sometimes over her left parasternal area , without acute EKG changes or troponin elevation. I do not suspect ACS. 2. Given her risk factors and degree of cardiomyopathy, there is a reasonably good chance she has significant CAD. She has previously declined heart catheterization, but wishes to consider it now. She seem to be unsure so we will discuss it tomorrow when she is not in the dialysis unit. 3. Brief nonsustained V. tach of 7 beats noted; no change. Current Visit: Yes (2) Elevated liver enzymes Status: Acute Current Visit: Yes (3) End stage renal disease on dialysis Problem details: HD tomorrow. 3 hrs. 2L UF as tolerated by hemodynamics. Status: Chronic Current Visit: Yes (4) Hyperlipidemia Status: Chronic Current Visit: No (5) Hypertension Status: Chronic Current Visit: No (6) Acute on chronic systolic (congestive) heart failure Status: Resolved Current Visit: No Cardiology - PN: Subj Interval history: Ms. Norman is little changes on the hemodialysis unit this morning. She reports she still has intermittent chest discomfort in the upper epigastric/xiphoid area sometimes over her breast which is tender to palpation. She has unchanged persistent lower extremity edema about 1+ which is a bit brawny. She is not short of breath at rest. She had a very short run of nonsustained V. tach about 7 beats. She reports she is willing to consider heart catheterization but seems unsure "I just need to get the swelling my legs better. Exam (Progress Note) - Constitutional Vitals: Period Temp Pulse Resp BP Sys/Herrera Pulse Ox Last 24 Hr 97.1 F-98.9 F 64-89 16-20 92-107/37-62 91-99 General appearance: no acute distress, over weight - Head Head exam: Present: normal inspection, normocephalic, atraumatic - Neck Neck exam: Present: normal inspection - Respiratory Respiratory exam: Absent: rhonchi, stridor - Cardiovascular Cardiovascular exam: Present: systolic murmur. Absent: diastolic murmur, rubs - GI/Abdominal GI/Abdominal exam: Present: soft. Absent: tenderness - Extremities Exam Extremities exam: Present: edema (Brawny edema about 1+ at least) - Neurological Exam Neurological exam: Present: alert, oriented X3 Result/EKG - Labs CBC & BMP: 05/28/17 09:43 05/28/17 09:43 Labs: Laboratory Results - last 24 hr 05/28/17 05/28/17 05/29/17 15:46 19:07 02:42 POC Glucose 171 H 173 H 51 L IgG IgM 05/29/17 05/29/17 05/29/17 03:11 04:05 04:56 POC Glucose 60 L 84 IgG 1690 H IgM 103 05/29/17 07:40 POC Glucose 130 H IgG IgM Quality Measures - Stroke Symptom Onset Unknown: No Specialty Discharge - Follow Up or Referrals
[2017-05-29] MEDS: LEVOTHYROXINE 25 MCG TABLET PO SCH (14:34)
[2017-05-29] MEDS: LUBIPROSTONE 8 MCG CAPSULE PO SCH ×2 (14:34→21:55)
[2017-05-29] MEDS: ISOSORBIDE MONONITRATE 30 MG TABLET PO SCH (14:34)
[2017-05-29] MEDS: ATORVASTATIN 80 MG TABLET PO SCH (14:34)
[2017-05-29] MEDS: METOPROLOL SUCCINATE XL 25 MG TABLET PO SCH ×2 (14:34→21:56)
[2017-05-29] MEDS: DOXYCYCLINE HYCLATE 100 MG CAPSULE PO SCH ×2 (14:34→21:55)
[2017-05-29] MEDS: PANTOPRAZOLE 40 MG TABLET PO SCH (14:35)
[2017-05-29] MEDS: LOTION (KERI) 236 ML BOTTLE TOP SCH (14:35)
[2017-05-29] MEDS: LOSARTAN 25 MG TABLET PO SCH (14:35)
[2017-05-30] MEDS: ALBUTEROL 2.5 MG/3 ML NEB RESP TX SCH ×5 (03:05→20:30)
[2017-05-30] MEDS: HEPARIN 5,000 UNIT/1 ML VIAL SUBCUT SCH ×3 (06:33→21:30)
--- NOTE | 2017-05-30 07:13 | Gastrointestinal Progress Note ---
Assessment and Plan - Time spent with patient Time spent with patient: Greater than 30 minutes (1) Elevated liver enzymes Status: Acute Current Visit: Yes (2) Other specified counseling Status: Acute Current Visit: Yes Gastroenterology - PN: Subj Interval history: PLEASE NOTE -- automatic citation of patient information is unavoidable in this electronic note. I have made a reasonable effort to review the information cited , but it is not a part of my evaluation, impression, or recommendation unless specifically discussed in the dictated text that follows. As well, voice recognition software was used in the creation of this clinical note. Reasonable effort was made to identify and correct gross errors. Despite proofreading, errors in acid loader may be present, including nonsense verbiage at times. If you encounter such an error, please contact me at for discussion and correction. -- Ene Chief complaint: abdominal pain, elevated liver associated enzymes Subjective: the patient is a 66-year-old female seen for follow-up of abdominal pain in the setting of elevated liver associated enzymes. She reports feeling some better this morning. She is hungry this morning and he is eating as we interview. She has not experienced any postprandial pain. Cardiac catheterization has been recommended. Medications: albuterol, Lipitor, Benadryl, doxycycline, heparin, [place], insulin , isosorbide, Synthroid, Cozaar, on the teaser, Toprol, Protonix, ultram Review of Symptoms: 12 point review of symptoms was negative except as noted above Physical examination: Vital Signs: Current vital signs reviewed. General Appearance: sitting on the edge of the bed. Comfortable. Eating breakfast. No apparent distress. Head: Normocephalic. Eyes: positive scleral icterus. No scleral injection. No conjunctival pallor. Oral Cavity: Odor of breath was normal. No drooling was observed. Lips showed no abnormalities. Lungs: Respiration rhythm and depth was normal. Cardiovascular: Heart rate and rhythm were normal. Abdomen: abdomen was not distended. Abdominal auscultation revealed no abnormalities. Ascites was not discovered. Abdominal palpation revealed no tenderness and no hepatosplenomegaly. Musculoskeletal System: musculoskeletal system was grossly normal. Neurological: level of consciousness was normal. Speech was normal. No coordination/cerebellum abnormalities were noted. Skin: Gen. appearance was normal. No skin lesions were appreciated. Laboratory: serum IgG 1690, ALT 44, AST 151, alkaline phosphatase 566, total bilirubin 7.0, smooth muscle antibody pending Radiology: reviewed with no pertinent changes noted. Impressions: #1. Elevated liver associated enzymes the patient has elevated liver associated enzymes in a cold static pattern. As Dr. Ohara reported, this is consistent with toxic effect, also with chronic hepatitis from autoimmune disease and other causes. The patient has elevated serum IgG, minimal, which can be seen with autoimmune hepatitis proper. Serologic screens are pending in this regard. In the interim, I recommend minimizing potentially hepatotoxic medications, including statin, if feasible. Otherwise, I recommend continued monitoring. #2. Other specified counseling -- Patient seen for greater than 30 minutes. Greater than 50% of this time was spent counseling regarding differential diagnosis, likely diagnosis,, diagnostic and therapeutic options, risks, benefits, and alternatives to procedures and medications, informed consent, and plan of care generally. Patient has expressed understanding and wishes to proceed. Recommendations: -- continued volume management -- screen for evidence of autoimmune related disease -- continue monitoring liver associated enzymes -- minimize potential hepatotoxic medications to whatever extent feasible -- we will continue to follow with you. Dr. Ohara will resume G.I. care for this patient tomorrow Exam (Progress Note) - Constitutional Vitals: Period Temp Pulse Resp BP Sys/Herrera Pulse Ox Last 24 Hr 96.9 F-97.6 F 68-89 16-20 107-134/41-56 90-100 Results - Labs CBC & BMP: 05/28/17 09:43 05/28/17 09:43 Specialty Discharge - Follow Up or Referrals Note Addendum: Reviewed
[2017-05-30] MEDS: DOXYCYCLINE HYCLATE 100 MG CAPSULE PO SCH ×2 (08:29→21:31)
[2017-05-30] MEDS: ISOSORBIDE MONONITRATE 30 MG TABLET PO SCH (08:29)
[2017-05-30] MEDS: INSULIN ASPART PROTAMINE/ASPART 70/30 100 UNIT/ML SUBCUT SCH ×2 (08:29→17:26)
[2017-05-30] MEDS: PANTOPRAZOLE 40 MG TABLET PO SCH (08:29)
[2017-05-30] MEDS: ATORVASTATIN 80 MG TABLET PO SCH (08:29)
[2017-05-30] MEDS: LOTION (KERI) 236 ML BOTTLE TOP SCH (08:29)
[2017-05-30] MEDS: LUBIPROSTONE 8 MCG CAPSULE PO SCH ×2 (08:29→21:31)
[2017-05-30] MEDS: METOPROLOL SUCCINATE XL 25 MG TABLET PO SCH ×2 (08:29→21:31)
[2017-05-30] MEDS: LEVOTHYROXINE 25 MCG TABLET PO SCH (08:29)
[2017-05-30] MEDS: LOSARTAN 25 MG TABLET PO SCH (08:30)
--- NOTE | 2017-05-30 08:33 | Cardiology Progress Note ---
Assessment and Plan (1) Atypical chest pain Status: Acute Assessment and plan: 1. Ms. Martinez still has intermittent very atypical chest pain tender to palpation over epigastrium xiphoid and sometimes over her left parasternal area , without acute EKG changes or troponin elevation. I do not suspect ACS. 2. Given her risk factors and degree of cardiomyopathy, there is a reasonably good chance she has significant CAD. She has previously declined heart catheterization, but wishes to consider it now. She seem to be unsure so we will discuss it tomorrow when she is not in the dialysis unit. 3. Brief nonsustained V. tach of 7 beats noted; no change. May 30 2017: 1. Ms. Martinez is hemodynamically stable on good cardiac medications and only having intermittent modest epigastric discomfort, and some persistent 1+ lower extremity brawny edema. 2. She is previously declined heart catheterization, but I have been told that she reconsider. She seemed unsure yesterday, but today she definitely does not want to schedule it for tomorrow as she is concerned about the possible risks of the procedure. I explained the risks and the benefits to her. 3. No new recommendations at this time, she should keep her previously scheduled cardiology follow-up (believe she sees Dr. Jones and to see him within a month) Current Visit: Yes (2) Elevated liver enzymes Status: Acute Current Visit: Yes (3) End stage renal disease on dialysis Problem details: HD tomorrow. 3 hrs. 2L UF as tolerated by hemodynamics. Status: Chronic Current Visit: Yes (4) Hyperlipidemia Status: Chronic Current Visit: No (5) Hypertension Status: Chronic Current Visit: No (6) Acute on chronic systolic (congestive) heart failure Status: Resolved Current Visit: No Cardiology - PN: Subj Interval history: Ms. Martinez is laying in bed and seems a bit sleepy. Her main complaint is intermittent epigastric discomfort, with some modest tenderness. It was minimal this morning. She does complain of some leg swelling when she walks around. It appears to be stable on exam and about 1+ brawny edema lower extremity bilaterally. I was reconsulted as I was told she was considering heart catheterization after having declined it on multiple occasions previously. She is a bit unsure while she was in dialysis yesterday so I told her I would come back to talk to her again today. Once I mentioned the risks of heart catheterization she was very concerned about that and, does not want to schedule heart catheterization at this time. Exam (Progress Note) - Constitutional Vitals: Period Temp Pulse Resp BP Sys/Herrera Pulse Ox Last 24 Hr 96.9 F-97.6 F 68-81 16-20 100-134/41-56 90-100 General appearance: no acute distress, under weight - Head Head exam: Present: normal inspection, normocephalic, atraumatic - Neck Neck exam: Present: normal inspection - Respiratory Respiratory exam: Absent: stridor, wheezes - Cardiovascular Cardiovascular exam: Present: systolic murmur. Absent: diastolic murmur, rubs - GI/Abdominal GI/Abdominal exam: Present: tenderness, soft - Extremities Exam Extremities exam: Present: edema Result/EKG - Labs CBC & BMP: 05/28/17 09:43 05/28/17 09:43 Labs: Laboratory Results - last 24 hr 05/29/17 05/29/17 05/29/17 04:56 14:17 22:02 POC Glucose 150 H 236 H IgG 1690 H IgM 103 05/30/17 02:57 POC Glucose 246 H IgG IgM Quality Measures - Stroke Symptom Onset Unknown: No Specialty Discharge - Follow Up or Referrals
--- NOTE | 2017-05-30 09:11 | Nephrology Progress Note ---
Nephrology - PN: Subj Interval history: Patient complains of some chest pain earlier today but it is abated And feels well presently. Review of systems pulmonary-patient denies shortness of breath Physical exam general the patient's chronically ill-appearing Assessment/plan 1. End-stage renal disease-we will continue hemodialysis support 2. Chest pain-continue medical management, yesterday the patient seemed more willing to proceed with coronary angiogram evaluation, however today she was not comfortable with the risks of the procedure and has declined this procedure again. 3. Hypertension continue present medical regimen Exam (PN)-Nephrology - Vital Signs Vital signs: Period Temp Pulse Resp BP Sys/Herrera Pulse Ox Last 24 Hr 96.9 F-97.6 F 68-81 16-20 100-134/41-56 90-100 - Lab 05/28/17 09:43 05/28/17 09:43 Most recent lab results Calcium 8.5 MG/DL (8.5-10.1) 05/28/17 09:43 Magnesium 2.7 MG/DL (1.8-2.4) H 05/27/17 05:26 Specialty Discharge - Follow Up or Referrals
[2017-05-30] MEDS: DOCUSATE SODIUM 100 MG CAPSULE PO SCH ×2 (09:30→21:31)
--- NOTE | 2017-05-30 15:56 | Hospitalist Progress Note ---
Assessment and Plan - Time spent with patient Time spent with patient: Less than 30 minutes (1) End stage renal disease on dialysis Problem details: HD tomorrow. 3 hrs. 2L UF as tolerated by hemodynamics. Status: Chronic Assessment and plan: 66-year-old female with history of end-stage renal disease on hemodialysis, hypertension, diabetes, hyperlipidemia, admitted by the hospitalist service on with chest pain, volume overload, skin rash and itching. Cardiology was consulted and offered patient left heart cath which she has refused twice. Nephrology is also following for her dialysis needs. Patient was found to have elevated LFTs and GIs workup is pending. She continues to complain of epigastric abdominal pain but she is tolerating a diet. Will repeat her liver enzymes in the morning and make her n.p.o. after midnight for possible MRCP/ ERCP by Dr. Ohara. Dr. Rivera will see and examine patient and further recommendations to follow. Current Visit: Yes (2) Hypertension Status: Chronic Current Visit: No (3) Diabetes mellitus Status: Chronic Current Visit: No (4) Hyperlipidemia Status: Chronic Current Visit: No (5) Volume overload Status: Acute Current Visit: No (6) Skin rash Status: Acute Current Visit: No (7) Itching Status: Acute Current Visit: No (8) Atypical chest pain Status: Acute Current Visit: Yes (9) ASCVD (arteriosclerotic cardiovascular disease) Problem details: Appreciate cardiology evaluation and treatment. Status: Chronic Current Visit: Yes (10) Elevated liver enzymes Status: Acute Current Visit: Yes Hospitalist: Subjective Interval history: Patient still does not feel well today. Continues to complain of chest/ epigastric pain. She is refusing heart cath again. Exam - Constitutional Vitals: Period Temp Pulse Resp BP Sys/Herrera Pulse Ox Last 24 Hr 96.9 F-98.4 F 68-82 16-20 100-134/41-56 94-100 Exam: 66-year-old female, no acute distress, alert and oriented Chest clear CV regular rate and rhythm Abdomen soft nontender Extremities with hyperpigmentation mild pedal edema Results - Labs CBC & BMP: 05/28/17 09:43 05/28/17 09:43 Quality Measures - Stroke Symptom Onset Unknown: No Specialty Discharge - Follow Up or Referrals
[2017-05-31] MEDS: ALBUTEROL 2.5 MG/3 ML NEB RESP TX SCH ×7 (00:03→23:30)
[2017-05-31 04:44] LABS: Basophils % 0.3 % (0.0-0.8); Eosinophils # 0.2 10*3/uL (0.0-0.87); Eosinophils % 2.7 % (0.00-10.9); Hematocrit 29.7 VOL% (35.7-47.0); Hemoglobin 10.8 GM/DL (12.0-16.0); Immature Granulocytes % 0.4 %; Immature Granulocytes Absolute 0.03 #; Lymphocytes # 0.8 10*3/uL (1.4-4.0); Lymphocytes % 11.8 % (21.3-54.2); Mean Corpuscular HGB Conc 36.4 GM/DL (32-36); Mean Corpuscular Hemoglobin 33 PG (27-34); Mean Corpuscular Volume 90.5 FL (87-102); Monocytes % 14.2 % (1.7-12.7); Neutrophils % 70.6 % (38.7-73.9); Red Blood Count 3.28 MC/CUMM (3.8-5.5); Red Cell Distribution Width 19.9 % (9.3-17.3); White Blood Count 7.1 T/CUMM (4-12)
[2017-05-31 04:55] LABS: Platelet Count 76 T/CUMM (130-400)
[2017-05-31 05:13] LABS: Giant Platelets Few; Hypochromasia 1+; Platelet Estimate Decreased; Target Cells Few
[2017-05-31 05:23] LABS: Albumin 1.9 G/DL (3.4-5.0); Bilirubin,Total 7.2 MG/DL (0.2-1.0); Calcium 8.5 MG/DL (8.5-10.1); Osmolality,Calculated 274.8 MOS/KG (273-304); Potassium 3.9 MMOL/L (3.5-5.1)
[2017-05-31] MEDS: HEPARIN 5,000 UNIT/1 ML VIAL SUBCUT SCH ×2 (05:31→15:43)
[2017-05-31] MEDS: METOPROLOL SUCCINATE XL 25 MG TABLET PO SCH ×2 (09:10→21:50)
[2017-05-31] MEDS: LOSARTAN 25 MG TABLET PO SCH (09:10)
[2017-05-31] MEDS: INSULIN ASPART PROTAMINE/ASPART 70/30 100 UNIT/ML SUBCUT SCH ×2 (09:12→18:04)
--- NOTE | 2017-05-31 09:12 | Nephrology Progress Note ---
Nephrology - PN: Subj Interval history: Ms De Dios states "I don't know. I did not agree to any procedure." when asked why she was NPO p MN. She states she had two overnight episodes of SOB. Denies pain. Exam (PN)-Nephrology - Vital Signs Vital signs: Period Temp Pulse Resp BP Sys/Herrera Pulse Ox Last 24 Hr 97.7 F-98.6 F 69-77 14-20 91-125/42-60 95-100 - General Appearance General appearance: well-developed, chronically ill EENT: ATNC, PERRL, hearing intact, vision intact Neck: no JVD, no thyromegaly Respiratory: no kyphosis, clear Cardiology: no murmurs, no rub Gastrointestinal: normoactive bowel sounds, no tenderness Integumentary: no rash, warm and dry Neurologic: no focal deficit, no asterixis, alert and oriented x3 Musculoskeletal: no deformities, no erythema Psychiatric: mood/affect appropriate, cooperative - Lab 05/31/17 04:24 05/31/17 04:24 Most recent lab results Calcium 8.5 MG/DL (8.5-10.1) 05/31/17 04:24 Magnesium 2.7 MG/DL (1.8-2.4) H 05/27/17 05:26 Assessment and Plan (1) End stage renal disease on dialysis Problem details: No acute indication for HD today. Status: Chronic Assessment and plan: Next routine CHD scheduled for tomorrow. UF as tolerated by hemodynamics. Current Visit: Yes (2) ASCVD (arteriosclerotic cardiovascular disease) Problem details: Appreciate cardiology evaluation and treatment. Status: Chronic Current Visit: Yes (3) Diabetes mellitus Status: Chronic Current Visit: No Specialty Discharge - Follow Up or Referrals
[2017-05-31] MEDS: PANTOPRAZOLE 40 MG TABLET PO SCH (09:26)
[2017-05-31] MEDS: LUBIPROSTONE 8 MCG CAPSULE PO SCH ×2 (09:26→21:50)
[2017-05-31] MEDS: ATORVASTATIN 80 MG TABLET PO SCH (09:26)
[2017-05-31] MEDS: LEVOTHYROXINE 25 MCG TABLET PO SCH (09:26)
[2017-05-31] MEDS: ISOSORBIDE MONONITRATE 30 MG TABLET PO SCH (09:26)
[2017-05-31] MEDS: DOCUSATE SODIUM 100 MG CAPSULE PO SCH ×2 (09:26→21:50)
[2017-05-31] MEDS: LOTION (KERI) 236 ML BOTTLE TOP SCH (09:27)
[2017-05-31] MEDS: DOXYCYCLINE HYCLATE 100 MG CAPSULE PO SCH ×2 (09:30→21:50)
--- NOTE | 2017-05-31 10:49 | Gastrointestinal Progress Note ---
Assessment and Plan (1) Elevated liver enzymes Status: Acute Assessment and plan: 05/31-continued elevated LFTs. Complaints of pain. Proceed with MRCP today to further evaluate. Plan an addendum to followed by Dr. Ohara. 05/26-awaiting lab results at this time. Continue n.p.o. status for present time due to possible consideration for ERCP if necessary. Further plan an addendum to followed by Dr. Ohara 05/27-bilirubin is 6 today. Abdominal ultrasound results noted as below. Continued pruritus. Plan an addendum to followed by Dr. Ohara. 05/26-admitted with shortness of breath and edema with findings of elevated LFTs as noted below. No known prior history of liver disease or gallbladder disease in the past. Hepatitis panel and YOAV pending at present time. Will obtain gallbladder ultrasound in the morning to further evaluate. Plan an addendum to followed by Dr. Ohara. Current Visit: Yes Gastroenterology - PN: Subj Interval history: CC: Elevated LFTs Patient is seen awake alert lying in bed. States she had a fairly restful night other than she did have some shortness of breath which is now improved. She is denying abdominal pain, nausea vomiting. Abdomen is soft, nontender. She is noted to have elevated LFTs stable with a bilirubin at 7.2. Patient was initially refusing any further testing however after discussion with Dr. Rivera this morning, patient has agreed to proceed with any necessary testing. Due to patient's hyponatremia, we will proceed with MRCP this morning to further evaluate. ROS: Denies shortness of breath or chest pain Exam (Progress Note) - Constitutional Vitals: Period Temp Pulse Resp BP Sys/Herrera Pulse Ox Last 24 Hr 97.7 F-98.6 F 69-81 14-20 91-125/42-60 95-100 General appearance: normal weight, no acute distress - Head Head exam: Present: normal inspection, normocephalic - Eye Eye exam: Present: scleral icterus, other (Lids and identified unremarkable) - ENT ENT exam: Present: normal exam, normal oropharynx - Neck Neck exam: Present: normal inspection - Respiratory Respiratory exam: Present: clear to auscultation bilaterally. Absent: rales, rhonchi, wheezes - Cardiovascular Cardiovascular exam: Present: regular rate and rhythm. Absent: diastolic murmur , JVD, systolic murmur - GI/Abdominal GI/Abdominal exam: Present: normal bowel sounds, soft. Absent: ascites, distended, mass, organomegaly, tenderness - Extremities Exam Extremities exam: Present: normal inspection, full ROM - Back Exam Back exam: Present: normal inspection - Neurological Exam Neurological exam: Present: alert, oriented X3 - Psychiatric Psychiatric exam: Present: normal affect, normal mood - Skin Skin exam: Present: normal color, warm, dry Results - Labs CBC & BMP: 05/31/17 04:24 05/31/17 04:24 Lab Results: I have reviewed the past 24 hour labs Specialty Discharge - Follow Up or Referrals Follow up with: Rudolph Jones MD [Physician] - 06/30/17 8:40 am
--- NOTE | 2017-05-31 16:55 | Hospitalist Progress Note ---
Assessment and Plan (1) Atypical chest pain Status: Acute Current Visit: Yes (2) End stage renal disease on dialysis Problem details: No acute indication for HD today. Status: Chronic Assessment and plan: Nephrology following . Current Visit: Yes (3) Diabetes mellitus Status: Chronic Assessment and plan: Tali MCCANN. SSI. Continue current plan of care. Current Visit: No (4) Elevated liver enzymes Status: Acute Assessment and plan: GI following. AST/ALT 112/43. Current Visit: Yes Hospitalist: Subjective Interval history: Pt. seen and examined this afternoon. Pt sitting on side of bed. Pt. states that she "doesn't feel good" but gives no specific details. Pt. denies pain or shortness of breath. Pt. has refused multiple tests but per Dr. Rivera has agreed to speak with someone. Exam - Constitutional Vitals: Period Temp Pulse Resp BP Sys/Herrera Pulse Ox Last 24 Hr 97.7 F-98.8 F 73-81 14-20 91-125/45-60 96-100 General appearance: no acute distress, over weight - Head Head exam: Present: normal inspection, normocephalic - Eye Eye exam: Present: EOMI Pupils: Present: NEIL - Respiratory Respiratory exam: Present: other (coarse). Absent: clear to auscultation bilaterally - Cardiovascular Cardiovascular exam: Present: regular rate and rhythm - GI/Abdominal GI/Abdominal exam: Present: normal bowel sounds, soft. Absent: tenderness - Extremities Exam Extremities exam: Present: edema - Neurological Exam Neurological exam: Present: alert, oriented X3 - Psychiatric Psychiatric exam: Present: normal affect, normal mood Results - Labs CBC & BMP: 05/31/17 04:24 05/31/17 04:24 Lab Results: I have reviewed the past 24 hour labs Quality Measures - Stroke Symptom Onset Unknown: No Specialty Discharge - Follow Up or Referrals Follow up with: Rudolph Jones MD [Physician] - 06/30/17 8:40 am
--- NOTE | 2017-05-31 17:33 | Magnetic Resonance Report ---
Indication: Elevated liver function studies, MRCP protocol, history of end-stage renal disease, creatinine 6 Comparison: Prior CT not available for comparison. Ultrasound image is 05/27/2017 or available for comparison. Technique: Magnetic resonance imaging of the abdomen was performed without administration of intravenous gadolinium using an MRCP protocol. Findings: Study is limited due to patient motion and limited number of sequences provided for interpretation. Additionally, intravenous gadolinium could not be administered given this patient's history of end-stage renal disease. Grossly, the liver is normal contour with no definite focal mass. There is no intrahepatic biliary ductal dilatation. The gallbladder is dilated with no definite wall thickening or intraluminal mass identified. Layering signal changes within the dependent gallbladder may represent sludge or small stones. The pancreas and spleen are grossly within normal limits. The adrenal glands are not visualized. Both kidneys are atrophic in appearance, compatible with given history of chronic renal failure. Trace ascites is noted within the abdomen. There are also bilateral small pleural effusions and suggestion of posterior basilar atelectasis versus consolidative changes. The osseous structures and surrounding soft tissues demonstrate unremarkable signal. IMPRESSION: Limited study with no obvious intrahepatic or extrahepatic biliary ductal dilatation. There is no obvious gallbladder wall thickening or mass visualized. The gallbladder is dilated, which is nonspecific. Bilateral pleural effusions and trace ascites. PROCEDURE INTERPRETED AT [facility] DEPARTMENT OF RADIOLOGY Final Report Signed by: Himanshu Sun
[2017-06-01] MEDS: ALBUTEROL 2.5 MG/3 ML NEB RESP TX SCH ×6 (03:43→23:51)
[2017-06-01] MEDS ORDERED: DEXTROSE 50% 25 GM/50 ML SYRINGE IV ONE (08:02)
[2017-06-01] MEDS: DOCUSATE SODIUM 100 MG CAPSULE PO SCH ×2 (08:18→21:01)
[2017-06-01] MEDS: LOSARTAN 25 MG TABLET PO SCH (08:18)
[2017-06-01] MEDS: INSULIN ASPART PROTAMINE/ASPART 70/30 100 UNIT/ML SUBCUT SCH ×2 (08:18→16:12)
[2017-06-01] MEDS: LUBIPROSTONE 8 MCG CAPSULE PO SCH ×2 (08:18→21:01)
[2017-06-01] MEDS: ATORVASTATIN 80 MG TABLET PO SCH (08:19)
[2017-06-01] MEDS: ISOSORBIDE MONONITRATE 30 MG TABLET PO SCH (08:19)
[2017-06-01] MEDS: DOXYCYCLINE HYCLATE 100 MG CAPSULE PO SCH ×2 (08:19→21:01)
[2017-06-01] MEDS: LEVOTHYROXINE 25 MCG TABLET PO SCH (08:19)
[2017-06-01] MEDS: PANTOPRAZOLE 40 MG TABLET PO SCH (08:19)
[2017-06-01] MEDS: METOPROLOL SUCCINATE XL 25 MG TABLET PO SCH ×2 (08:19→21:01)
[2017-06-01] MEDS: LOTION (KERI) 236 ML BOTTLE TOP SCH (08:20)
--- NOTE | 2017-06-01 08:21 | Order Completion Report ---
See report scanned to EMR
[2017-06-01] MEDS: DEXTROSE 50% 25 GM/50 ML SYRINGE IV PRN (08:27)
[2017-06-01 10:12] LABS: Basophils % 0.4 % (0.0-0.8); Eosinophils # 0.1 10*3/uL (0.0-0.87); Eosinophils % 1.8 % (0.00-10.9); Hematocrit 27.4 VOL% (35.7-47.0); Hemoglobin 10.1 GM/DL (12.0-16.0); Immature Granulocytes % 0.6 %; Immature Granulocytes Absolute 0.04 #; Lymphocytes # 0.7 10*3/uL (1.4-4.0); Lymphocytes % 10.1 % (21.3-54.2); Mean Corpuscular HGB Conc 36.9 GM/DL (32-36); Mean Corpuscular Hemoglobin 33 PG (27-34); Mean Corpuscular Volume 89.8 FL (87-102); Monocytes # 0.9 10*3/uL (0.11-0.8); Monocytes % 12.9 % (1.7-12.7); Neutrophils % 74.2 % (38.7-73.9); Red Blood Count 3.05 MC/CUMM (3.8-5.5); Red Cell Distribution Width 19.7 % (9.3-17.3); White Blood Count 6.8 T/CUMM (4-12)
[2017-06-01 10:14] LABS: Platelet Count 63 T/CUMM (130-400)
[2017-06-01 10:17] LABS: INR 1.1; PT Patient Result 11.8 SECS
--- NOTE | 2017-06-01 10:32 | Dialysis Note ---
Dialysis Note - Dialysis Note Ms. Martinez is seen on hemodialysis. She is tolerating dialysis well. She is to undergo ERCP following dialysis. Blood pressure is stable.
[2017-06-01 10:34] LABS: Giant Platelets Few; Hypochromasia 1+; Platelet Estimate Decreased; Target Cells Few
[2017-06-01 10:58] LABS: Albumin 1.9 G/DL (3.4-5.0); Calcium 8.1 MG/DL (8.5-10.1); Osmolality,Calculated 275.5 MOS/KG (273-304); Potassium 3.7 MMOL/L (3.5-5.1)
[2017-06-01] MEDS ORDERED: GLUCAGON 1 MG VIAL SUBCUT PRN (11:00)
--- NOTE | 2017-06-01 14:04 | Gastrointestinal Progress Note ---
Assessment and Plan (1) Elevated liver enzymes Status: Acute Assessment and plan: 06/01-continued elevated LFTs. No complaints of pain today. ERCP canceled and postponed at this time until venous access can be obtained. We will tentatively reschedule for tomorrow if IV access can be obtained prior to procedure time. Dr. Wilcox consulted for possible central line placement. Case discussed with ABIGAIL Moran. Plan and addendum to follow by Dr. Ohara. 05/31-continued elevated LFTs. Complaints of pain. Proceed with MRCP today to further evaluate. Plan an addendum to followed by Dr. Ohara. 05/26-awaiting lab results at this time. Continue n.p.o. status for present time due to possible consideration for ERCP if necessary. Further plan an addendum to followed by Dr. Ohara 05/27-bilirubin is 6 today. Abdominal ultrasound results noted as below. Continued pruritus. Plan an addendum to followed by Dr. Ohara. 05/26-admitted with shortness of breath and edema with findings of elevated LFTs as noted below. No known prior history of liver disease or gallbladder disease in the past. Hepatitis panel and YOAV pending at present time. Will obtain gallbladder ultrasound in the morning to further evaluate. Plan an addendum to followed by Dr. Ohara. Current Visit: Yes Gastroenterology - PN: Subj Interval history: CC: Elevated LFTs Patient is seen, awake and alert. She was scheduled for ERCP today however right prior to the procedure venous access was lost. She has poor peripheral venous access options at this time. Have notified patient's admitting physician regarding need for possible PICC line versus central line. She continues to have elevated LFTs with bilirubin 7. Abdomen is soft, nontender. She denies any pain, nausea or vomiting at this time. After obtaining IV access , we will tentatively reschedule her ERCP for tomorrow. ROS: Denies shortness of breath or chest pain Exam (Progress Note) - Constitutional Vitals: Period Temp Pulse Resp BP Sys/Herrera Pulse Ox Last 24 Hr 98.5 F-99.7 F 73-91 16-24 105-143/47-64 93-98 General appearance: normal weight, no acute distress - Head Head exam: Present: normal inspection, normocephalic - Eye Eye exam: Present: scleral icterus, other (Lids and conjunctive are unremarkable ) - ENT ENT exam: Present: normal exam, normal oropharynx - Neck Neck exam: Present: normal inspection - Respiratory Respiratory exam: Present: clear to auscultation bilaterally. Absent: rales, rhonchi, wheezes - Cardiovascular Cardiovascular exam: Present: regular rate and rhythm. Absent: diastolic murmur , JVD, systolic murmur - GI/Abdominal GI/Abdominal exam: Present: normal bowel sounds, soft. Absent: ascites, distended, mass, organomegaly, tenderness - Extremities Exam Extremities exam: Present: normal inspection, full ROM - Back Exam Back exam: Present: normal inspection - Neurological Exam Neurological exam: Present: alert, oriented X3 - Psychiatric Psychiatric exam: Present: normal affect, normal mood - Skin Skin exam: Present: normal color, warm, dry Results - Labs CBC & BMP: 06/01/17 10:04 06/01/17 10:04 Lab Results: I have reviewed the past 24 hour labs Specialty Discharge - Follow Up or Referrals Follow up with: Rudolph Jones MD [Physician] - 06/30/17 8:40 am
--- NOTE | 2017-06-01 15:01 | General Surgery Consult Note ---
Assessment and Plan (1) Need for intravenous access Status: Acute Assessment and plan: Dr. Wilcox to follow with recommendations and procedure. Current Visit: Yes History of Present Illness Chief complaint: Unable to obtain peripheral IV access History of present illness: Ms. De Dios is a 66 year old female with IDDM and ESRD currently undergoing evaluation for elevated LFTs with ERCP pending. Nursing unable to obtain peripheral access and requesting central line placement for IV access. No h/o chest or neck trauma. Home Medications Medication Instructions Recorded Confirmed Type Insulin Aspart Prot/Asp 70/30 20 unit SUBCUT AC SUPPER 09/25/15 05/25/17 History [NovoLOG Mix 70/30] Insulin Aspart Prot/Asp 70/30 40 unit SUBCUT AC BREAKFAST 09/25/15 05/25/17 History [NovoLOG Mix 70/30] Levothyroxine Tab [Synthroid Tab] 25 mcg PO DAILY 09/25/15 05/25/17 History Albuterol Sulfate [Ventolin HFA] 2 puff INH Q4H 03/03/16 05/25/17 History Aspirin Tab 325 mg PO DAILY #30 tablet 05/10/17 05/25/17 Rx Carvedilol [Coreg] 3.125 mg PO BID W/MEALS #60 tablet 05/10/17 05/25/17 Rx Losartan [Cozaar] 25 mg PO DAILY #30 tablet 05/10/17 05/25/17 Rx Lotion (Mary) [Mary Lotion] 1 applic TOP DAILY applic 05/10/17 05/25/17 Rx diphenhydrAMINE CAP [Benadryl Cap] 25 mg PO Q4H PRN capsule 05/10/17 05/25/17 Rx Doxycycline Monohydrate [Avidoxy] 100 mg PO [id number] 05/25/17 05/25/17 History Hydrocodone/Acetaminophen [[place] 1 each PO QID PRN 05/25/17 05/25/17 History 10-325 Tablet] Lubiprostone [Amitiza] 8 mcg PO BID 05/25/17 05/25/17 History Tramadol HCl [Tramadol Tab] 50 mg PO Q6H PRN 05/25/17 05/25/17 History Triamcinolone 0.1% Oint [Kenalog 1 applic TOP BID PRN 09/19/17 09/19/17 History Oint 0.1%] Allergies Allergy/AdvReac Type Severity Reaction Status Date / Time No Known Allergies Allergy Verified 12/04/16 06:17 Medical,Surgical,& Family Hx - Medical History Cardio: History of: CHF, CAD, Hypertension, VT (1997) Neurology: History of: Cerebrovascular Accident (1998) No history of: Seizures HEENT: History of: Eye Problem (Glasses) No history of: Ear Problem, Dental Problems, HEENT Problems Endocrine: History of: Diabetes Mellitus (IDDM), Dyslipidemia, Thyroid Disorder Rheumatology: History of;: Rheumatoid Arthritis Respiratory: History of: COPD, Obstructive Sleep Apnea (CPAP), Respiratory Problems (SHORTNESS OF BREATH; ?No Flu Vac per daughter) Renal: History of: Dialysis (T SAT FRESINUS) Genitourinary: No history of: Problems Gastrointestinal: History of: GI Problems (CONSTIPATION) No history of: Liver Problems Hematology: No history of: Blood Transfusion Reaction (No Transfusions) Other: History of: Miscellaneous Medical Problems (ESRD on dialysis with LEFT GRAFT) No history of: Anesthesia Reactions, Cancer - Surgical History HEENT Surgeries: Surgical HX of: Eye Surgery (LASER BILATERAL) Abdominal Surgeries: Surgical HX of: Abdominal Surgery Reproductive Surgeries: Surgical HX of;: Breast Surgery (BX) - Family History Family History: Reports;: Family Cancer (Siblings), Family Diabetes (Mom and siblings), Family Heart Disease (father) - Social History Smoking Status: Current every day smoker Frequency of Alcohol Use: None Type of Drug Use: None - Constitutional Constitutional: Absent: chills, fever(s) Exam - Constitutional Vitals: Period Temp Pulse Resp BP Sys/Herrera Pulse Ox Last 24 Hr 98.5 F-99.7 F 73-91 16-24 105-143/47-64 93-98 General appearance: no acute distress - Neck Neck exam: Present: trachea midline, other (no trauma) - Respiratory Respiratory exam: Present: clear to auscultation bilaterally - Cardiovascular Cardiovascular exam: Present: RRR - GI/Abdominal GI/Abdominal exam: Present: normal bowel sounds, soft. Absent: tenderness - Neurological Exam Neurological exam: Present: alert, oriented X3 Speech: Present: normal Quality Measures - Stroke Symptom Onset Unknown: No Results - Labs CBC & BMP: 06/01/17 10:04 06/01/17 10:04 Specialty Discharge - Follow Up or Referrals Follow up with: Rudolph Jones MD [Physician] - 06/30/17 8:40 am
--- NOTE | 2017-06-01 16:24 | Hospitalist Progress Note ---
Assessment and Plan (1) Atypical chest pain Status: Acute Current Visit: Yes (2) End stage renal disease on dialysis Problem details: No acute indication for HD today. Status: Chronic Assessment and plan: Nephrology following. Pt. dialyzed today. Tolerated well. Daily bmps. Current Visit: Yes (3) Diabetes mellitus Status: Chronic Assessment and plan: Accuchecks ACHS. SSI. Continue current plan of care. Current Visit: No (4) Elevated liver enzymes Status: Acute Assessment and plan: GI following. AST/ALT 112/43. 06/01 GI continues to follow. ERCP scheduled for tomorrow. AST/ALT 131/42 Current Visit: Yes Hospitalist: Subjective Interval history: Pt. seen and examined this afternoon after dialysis. Labs and chart reviewed. Pt. is resting comfortably in bed. Pt. is alert and oriented with no complaints at present. Pt. denies pain or shortness of breath. General surgery was consulted to place line as staff nurses were unable to secure peripheral IV. GI still following patient. Pt. continues to have elevated LFTs. ERCP will be postponed until possibly tomorrow. Continue to monitor patient. Exam - Constitutional Vitals: Period Temp Pulse Resp BP Sys/Herrera Pulse Ox Last 24 Hr 98.5 F-99.7 F 74-91 16-24 105-143/47-64 93-98 General appearance: no acute distress, over weight - Head Head exam: Present: normal inspection, normocephalic - Eye Eye exam: Present: EOMI Pupils: Present: NEIL - ENT ENT exam: Present: normal exam - Neck Neck exam: Present: normal inspection - Respiratory Respiratory exam: Present: clear to auscultation bilaterally. Absent: wheezes - Cardiovascular Cardiovascular exam: Present: regular rate and rhythm - GI/Abdominal GI/Abdominal exam: Present: normal bowel sounds, soft. Absent: tenderness - Extremities Exam Extremities exam: Present: full ROM, edema - Neurological Exam Neurological exam: Present: alert, oriented X3 - Psychiatric Psychiatric exam: Present: normal affect, normal mood - Skin Skin exam: Present: normal color, warm, dry Results - Labs CBC & BMP: 06/01/17 10:04 06/01/17 10:04 Lab Results: I have reviewed the past 24 hour labs Quality Measures - Stroke Symptom Onset Unknown: No Specialty Discharge - Follow Up or Referrals Follow up with: Rudolph Jones MD [Physician] - 06/30/17 8:40 am
[2017-06-02] MEDS: ALBUTEROL 2.5 MG/3 ML NEB RESP TX SCH ×6 (03:07→19:42)
[2017-06-02 06:24] LABS: Basophils % 0.5 % (0.0-0.8); Eosinophils # 0.2 10*3/uL (0.0-0.87); Eosinophils % 2.2 % (0.00-10.9); Hematocrit 28.5 VOL% (35.7-47.0); Hemoglobin 10.3 GM/DL (12.0-16.0); Immature Granulocytes % 0.4 %; Immature Granulocytes Absolute 0.03 #; Lymphocytes # 0.6 10*3/uL (1.4-4.0); Lymphocytes % 6.8 % (21.3-54.2); Mean Corpuscular HGB Conc 36.1 GM/DL (32-36); Mean Corpuscular Hemoglobin 33 PG (27-34); Mean Corpuscular Volume 90.5 FL (87-102); Mean Platelet Volume 12.8 FL (9.6-12.0); Monocytes % 12.8 % (1.7-12.7); Neutrophils # 6.3 10*3/uL (1.4-7.4); Neutrophils % 77.3 % (38.7-73.9); Platelet Count 66 T/CUMM (130-400); Red Blood Count 3.15 MC/CUMM (3.8-5.5); Red Cell Distribution Width 19.9 % (9.3-17.3); White Blood Count 8.1 T/CUMM (4-12)
[2017-06-02 06:38] LABS: INR 1.1; PT Patient Result 11.6 SECS
[2017-06-02 06:53] LABS: Hypochromasia 1+; Target Cells Slight
[2017-06-02 06:56] LABS: Bilirubin,Total 7.9 MG/DL (0.2-1.0); Calcium 8.9 MG/DL (8.5-10.1); Osmolality,Calculated 280.4 MOS/KG (273-304); Potassium 4.3 MMOL/L (3.5-5.1); Total Protein 6.4 G/DL (6.4-8.3)
[2017-06-02] MEDS: INSULIN ASPART PROTAMINE/ASPART 70/30 100 UNIT/ML SUBCUT SCH ×2 (07:51→15:40)
[2017-06-02] MEDS: ISOSORBIDE MONONITRATE 30 MG TABLET PO SCH (08:55)
[2017-06-02] MEDS: LEVOTHYROXINE 25 MCG TABLET PO SCH (08:55)
[2017-06-02] MEDS: DOCUSATE SODIUM 100 MG CAPSULE PO SCH ×2 (08:55→21:54)
[2017-06-02] MEDS: LUBIPROSTONE 8 MCG CAPSULE PO SCH ×2 (08:55→21:54)
[2017-06-02] MEDS: LOSARTAN 25 MG TABLET PO SCH (08:55)
[2017-06-02] MEDS: METOPROLOL SUCCINATE XL 25 MG TABLET PO SCH ×2 (08:55→21:54)
[2017-06-02] MEDS: PANTOPRAZOLE 40 MG TABLET PO SCH ×2 (08:55→21:54)
[2017-06-02] MEDS: ATORVASTATIN 80 MG TABLET PO SCH (08:55)
[2017-06-02] MEDS: DOXYCYCLINE HYCLATE 100 MG CAPSULE PO SCH ×2 (08:56→21:54)
--- NOTE | 2017-06-02 09:19 | Nephrology Progress Note ---
Nephrology - PN: Subj Interval history: Pt states she had some "chest pain" briefly overnight, relieved with "pain medicine". Denies SOB or current pain. Tolerated routine CHD yesterday s complications. Exam (PN)-Nephrology - Vital Signs Vital signs: Period Temp Pulse Resp BP Sys/Herrera Pulse Ox Last 24 Hr 97.0 F-99.2 F 74-83 16-20 110-136/49-85 90-99 - General Appearance General appearance: well-developed, chronically ill EENT: ATNC, PERRL, mucous membranes dry, hearing intact, vision intact Neck: no JVD, no thyromegaly Respiratory: no kyphosis, clear Cardiology: no murmurs, no rub Gastrointestinal: normoactive bowel sounds, no tenderness Integumentary: no rash, warm and dry Neurologic: no focal deficit, no asterixis, alert and oriented x3 Musculoskeletal: no deformities Psychiatric: mood/affect appropriate, cooperative - Lab 06/02/17 06:13 06/02/17 06:13 Most recent lab results Calcium 8.9 MG/DL (8.5-10.1) 06/02/17 06:13 Magnesium 2.7 MG/DL (1.8-2.4) H 05/27/17 05:26 Assessment and Plan (1) Elevated liver enzymes Problem details: Evaluation by GI underway. Status: Acute Assessment and plan: ERCP scheduled for today, per patient. Current Visit: Yes (2) End stage renal disease on dialysis Problem details: No acute indication for HD today. Status: Chronic Assessment and plan: Next routine CHD scheduled for tomorrow. UF as tolerated by hemodynamics. Current Visit: Yes (3) ASCVD (arteriosclerotic cardiovascular disease) Status: Chronic Assessment and plan: Current Visit: Yes (4) Diabetes mellitus Status: Chronic Current Visit: No Specialty Discharge - Follow Up or Referrals Follow up with: Rudolph Jones MD [Physician] - 06/30/17 8:40 am
[2017-06-02] MEDS: LOTION (KERI) 236 ML BOTTLE TOP SCH (09:43)
[2017-06-02] MEDS ORDERED: ALBUTEROL 2.5 MG/3 ML NEB RESP TX ONE (11:24)
[2017-06-02] MEDS ORDERED: fentaNYL 100 MCG/2 ML VIAL ONE (12:17)
--- NOTE | 2017-06-02 12:18 | History and Physical Update ---
History and Physical Update - History and Physical H&P was reviewed, the patient examined and there: are no changes in the patients condition since last H&P was completed. - Physical Exam Mental Status: alert and oriented Heart: regular rate and rhythm Lung: clear to auscultation Abdomen: within normal limits Vitals: within normal limits
[2017-06-02] MEDS ORDERED: ETOMIDATE 20 MG/10 ML VIAL IV ONE (12:20)
[2017-06-02] MEDS ORDERED: ONDANSETRON 4 MG/2 ML VIAL ONE (12:20)
[2017-06-02] MEDS ORDERED: EPINEPHrine 1 MG/ML VIAL ONE (12:20)
[2017-06-02] MEDS ORDERED: LIDOCAINE 2% 5 ML VIAL ONE (12:20)
[2017-06-02] MEDS ORDERED: ROCURONIUM 100 MG/10 ML VIAL IV ONE (12:20)
--- NOTE | 2017-06-02 13:13 | Operative Note ---
Date of procedure: 06/02/17 Pre-op diagnosis: Jaundice, gallstones, upper abdominal pain Procedure: Procedure: Endoscopic retrograde cholangiography with duodenal biopsies Brief clinical abstract: Patient is a 66-year-old female with end-stage renal disease who has had recent onset jaundice with total bilirubin in the 7 range and elevated liver tests including alkaline phosphatase around 600. She has had imaging with CT and MRI demonstrating gallstones. Patient has had recent intermittent upper abdominal pain and nausea. Procedure findings: After informed consent was obtained, patient was placed in the prone position. Diagnostic video duodenoscope was inserted in the upper esophagus in blind fashion with no resistance encountered. Esophageal mucosa appeared normal. Stomach was examined including retroflexed view of the cardia and fundus with no gross abnormality seen. The pyloric channel was normal. There was extensive ulceration in the duodenal bulb and second as well as third portion of the duodenum with superficial white based ulceration noted. Ampulla had normal appearance. Common bile duct was selectively cannulated using sphincterotome and 0.035 inch guidewire. Biliary tree was filled with contrast. Right and left intrahepatic systems appeared normal. Common bile duct and common hepatic duct also had normal appearance with normal caliber and no filling defects. Cystic duct was patent and gallbladder filled with multiple stones noted within the gallbladder lumen. Excellent drainage from the biliary system into the duodenum was noted under fluoroscopy. Pancreatogram was not obtained. The sphincterotome catheter with wire was removed. Multiple biopsies were obtained from the post bulbar duodenal ulcer for pathologic examination. The endoscope was then removed. She appeared to tolerate the procedure well. Impression: #1 cholelithiasis-otherwise normal cholangiogram #2 Multiple ulcers in duodenal bulb and post bulbar duodenum Recommendations: PPI therapy twice daily for now. Follow-up pathology from above. Obtain fasting serum gastrin. Anesthesia: GETA Surgeon / Physician: Elie Ohara Estimated blood loss: minimal Specimens: other (Post bulbar duodenal ulcers) Condition: stable Disposition: post procedure unit Results - Labs CBC & BMP: 06/02/17 06:13 06/02/17 06:13 Discharge Plan - Discharge Medications No Action Levothyroxine Tab [Synthroid Tab] 25 mcg PO DAILY Insulin Aspart Prot/Asp 70/30 [NovoLOG Mix 70/30] 40 unit SUBCUT AC BREAKFAST Insulin Aspart Prot/Asp 70/30 [NovoLOG Mix 70/30] 20 unit SUBCUT AC SUPPER Albuterol Sulfate [Ventolin HFA] 2 puff INH Q4H Aspirin Tab 325 mg PO DAILY #30 tablet Carvedilol [Coreg] 3.125 mg PO BID W/MEALS #60 tablet diphenhydrAMINE CAP [Benadryl Cap] 25 mg PO Q4H PRN capsule PRN Reason: Itching Losartan [Cozaar] 25 mg PO DAILY #30 tablet Lotion (Mary) [Mary Lotion] 1 applic TOP DAILY applic Triamcinolone 0.1% Oint [Kenalog Oint 0.1%] 1 applic TOP BID PRN PRN Reason: Itching Tramadol HCl [Tramadol Tab] 50 mg PO Q6H PRN PRN Reason: Pain Hydrocodone/Acetaminophen [Shannon 10-325 Tablet] 1 each PO QID PRN PRN Reason: Pain Doxycycline Monohydrate [Avidoxy] 100 mg PO [id number] Lubiprostone [Amitiza] 8 mcg PO BID - Follow Up or Referral Follow Up: Rudolph Jones MD [Physician] - 06/30/17 8:40 am - Forms/Instructions Instructions: Heart Failure (GEN), Chest Pain (DC), How to Stop Smoking (DC), Dialysis Diet (GEN), Fluid Restriction (GEN), End-Stage Kidney Disease (GEN)
--- NOTE | 2017-06-02 13:48 | Anesthesia Post-Op ---
Anesthesia Post OP - Post Ansesthetic Evaluation Patient seen in post op: Yes Resp: within normal limits CV: within normal limits Mental: within normal limits Temp: within normal limits [id number]: within normal limits Nausea and Vomiting: within normal limits Pain: within normal limits
--- NOTE | 2017-06-02 14:16 | Fluoroscopy Report ---
Exam: [place] ERCP Date: 06/02/2017 7:18 PM Indication: Upper abdominal pain and tenderness jaundice Comparison: MRI of the abdomen ultrasound of the abdomen and recent CT PE chest are all available for review Findings: Patient was given 5 cc of contrast with 2.5 minutes fluoroscopy time provided to Dr. Guero Ohara. The exam reveals contrast filling the common bile duct and the left and right biliary radicals are demonstrated. No obvious stones or obstruction or extravasation of contrast noted. The gallbladder is partially opacified with stones Impression: 1. Cholelithiasis 2. No obvious bile duct obstruction or choledocholithiasis present. PROCEDURE INTERPRETED AT [facility] DEPARTMENT OF RADIOLOGY Final Report Signed by: Dr. Elie Britton
--- NOTE | 2017-06-02 15:30 | Hospitalist Progress Note ---
Hospitalist: Subjective Interval history: Patient is awake and comfortable. She underwent an ERCP today for evaluation of jaundice and elevated liver enzymes. Exam - Constitutional Vitals: Period Temp Pulse Resp BP Sys/Herrera Pulse Ox Last 24 Hr 97.0 F-100.2 F 72-83 12-20 92-144/40-85 90-100 Exam: General: No Acute Distress HEENT: Normocephalic, atraumatic, Extra ocular movements intact Neck: Supple, No JVD Chest: Clear to auscultation B/L CV: S1 + S2 audible without murmur, gallop or rub Abd: soft, NT, Non-distended, BS + Ext: No edema Skin: No purpura, bruising or rash Rheumatologic: No Joint deformities Neurologic: Awake and alert Results - Labs CBC & BMP: 06/02/17 06:13 06/02/17 06:13 - Impressions Assessment and Plan: Jaundice with elevated liver enzymes Status: Acute Assessment and plan: ERCP done 927. She has cholelithiasis Current Visit: Yes Peptic ulcer disease Status: Acute Assessment and plan: Multiple ulcers in duodenal bulb and post bulbar duodenum, she is on PPI Current Visit: Yes Coronary artery disease Status: Chronic Assessment and plan: Stable. Had previous runs of nonsustained V. tach but has declined heart cath repeatedly. Current Visit: Yes Acute on chronic systolic congestive heart failure Status: Acute Assessment and plan: Baseline ejection fraction is 25% UF as tolerated by hemodynamics Current Visit: Yes End stage renal disease on HD Status: Chronic Assessment and plan: on HD with ultrafiltration Current Visit: Yes Quality Measures - Stroke Symptom Onset Unknown: No Specialty Discharge - Follow Up or Referrals Follow up with: Rudolph Jones MD [Physician] - 06/30/17 8:40 am
[2017-06-02] MEDS: ONDANSETRON 4 MG/2 ML VIAL IV PRN ×2 (15:59→20:52)
--- NOTE | 2017-06-02 18:33 | XRay Report ---
Portable chest Exam date: 06/02/2017 518 PM Indication: Shortness of breath, cough pneumonia Comparison: May 25, 2017 Findings: Cardiomediastinal contours are stable with underlying cardiomegaly and extensive granulomatous changes within the mediastinum. Volume loss and consolidation within the right lung base is unchanged with persistent elevation of the right hemidiaphragm. No acute osseous abnormalities. Visualized upper abdomen demonstrates no acute pathology. Impression: No interval change in the appearance the chest PROCEDURE INTERPRETED AT [facility] DEPARTMENT OF RADIOLOGY Final Report Signed by: Ilir Mello MD
[2017-06-03] MEDS: ALBUTEROL 2.5 MG/3 ML NEB RESP TX SCH ×7 (01:05→23:15)
[2017-06-03] MEDS: INSULIN ASPART PROTAMINE/ASPART 70/30 100 UNIT/ML SUBCUT SCH ×2 (07:58→16:44)
[2017-06-03 09:01] LABS: Bilirubin,Direct 8.8 MG/DL (0.0-0.20); Bilirubin,Indirect 1.6 MG/DL (0.0-1.0); Bilirubin,Total 10.4 MG/DL (0.2-1.0); Total Protein 6.6 G/DL (6.4-8.3)
--- NOTE | 2017-06-03 09:31 | Nephrology Progress Note ---
Nephrology - PN: Subj Interval history: Ms De Dios denies SOB/pain. Tolerated ERCP without apparent complications yesterday. Had sore throat and epigastric pain after procedure last evening, now resolved. Exam (PN)-Nephrology - Vital Signs Vital signs: Period Temp Pulse Resp BP Sys/Herrera Pulse Ox Last 24 Hr 97.4 F-100.2 F 71-83 12-20 92-144/40-69 90-100 - General Appearance General appearance: well-developed, chronically ill EENT: ATNC, PERRL, hearing intact, vision intact Neck: no JVD, no carotid bruit Respiratory: no kyphosis, clear Cardiology: no murmurs, no rub, edema Gastrointestinal: normoactive bowel sounds, no tenderness Integumentary: no rash, warm and dry Neurologic: no focal deficit, no asterixis, alert and oriented x3 Musculoskeletal: no erythema, no cyanosis Psychiatric: mood/affect appropriate, cooperative - Lab 06/02/17 06:13 06/02/17 06:13 Most recent lab results Calcium 8.9 MG/DL (8.5-10.1) 06/02/17 06:13 Magnesium 2.7 MG/DL (1.8-2.4) H 05/27/17 05:26 Assessment and Plan (1) End stage renal disease on dialysis Problem details: Routine CHD today. Status: Chronic Assessment and plan: Next routine CHD scheduled for today. UF as tolerated by hemodynamics. Epogen 8k units IVPB p HD. Current Visit: Yes (2) ASCVD (arteriosclerotic cardiovascular disease) Status: Chronic Assessment and plan: Current Visit: Yes (3) Diabetes mellitus Status: Chronic Current Visit: No Specialty Discharge - Follow Up or Referrals Follow up with: Rudolph Jones MD [Physician] - 06/30/17 8:40 am Jacinto Leslie [Primary Care Provider] - 1 Week (pt need appt to see PCP within 1 week of discharge date. Nurse to call Guero Russell home care assistant @[phone] to get appt. If over the weekend, please leave a voicemail and tell pt he will contact them on wednesday. All records need to be faxed to [phone]. Alt number for guero [phone].)
--- NOTE | 2017-06-03 09:41 | Gastrointestinal Progress Note ---
Assessment and Plan (1) Elevated liver enzymes Problem details: Evaluation by GI underway. Status: Acute Assessment and plan: 06/03-Bilirubin elevated. No complaints of pain. Tolerating diet. For dialysis today. ERCP findings noted as below. Plan and addendum to follow by Dr Ohara. 06/01-continued elevated LFTs. No complaints of pain today. ERCP canceled and postponed at this time until venous access can be obtained. We will tentatively reschedule for tomorrow if IV access can be obtained prior to procedure time. Dr. Wilcox consulted for possible central line placement. Case discussed with ABIGAIL Moran. Plan and addendum to follow by Dr. Ohara. 05/31-continued elevated LFTs. Complaints of pain. Proceed with MRCP today to further evaluate. Plan an addendum to followed by Dr. Ohara. 05/26-awaiting lab results at this time. Continue n.p.o. status for present time due to possible consideration for ERCP if necessary. Further plan an addendum to followed by Dr. Ohara 05/27-bilirubin is 6 today. Abdominal ultrasound results noted as below. Continued pruritus. Plan an addendum to followed by Dr. Ohara. 05/26-admitted with shortness of breath and edema with findings of elevated LFTs as noted below. No known prior history of liver disease or gallbladder disease in the past. Hepatitis panel and YOAV pending at present time. Will obtain gallbladder ultrasound in the morning to further evaluate. Plan an addendum to followed by Dr. Ohara. Current Visit: Yes Gastroenterology - PN: Subj Interval history: CC: Elevated LFTs Pt is seen, asleep in bed. She is not very communicative this morning. She verbalizes no complaints of abdominal pain, nausea or vomiting. ERCP on yesterday noted with findings of cholelithiasis with normal cholangiogram and multiple duodenal and bulbar ulcers. Bilirubin is elevated today at 10 with no changes in her transaminases. Serum gastrin level pending. Pathology pending at this time. Abdomen is soft, nontender. For dialysis today. ROS: Denies SOB or chest pain Exam (Progress Note) - Constitutional Vitals: Period Temp Pulse Resp BP Sys/Herrera Pulse Ox Last 24 Hr 97.4 F-100.2 F 71-83 12-20 92-144/40-69 90-100 General appearance: normal weight, no acute distress - Head Head exam: Present: normal inspection, normocephalic - Eye Eye exam: Present: scleral icterus, other (lids and conjunctiva unremarkable) - ENT ENT exam: Present: normal exam, normal oropharynx - Neck Neck exam: Present: normal inspection - Respiratory Respiratory exam: Present: clear to auscultation bilaterally. Absent: rales, rhonchi, wheezes - Cardiovascular Cardiovascular exam: Present: regular rate and rhythm. Absent: diastolic murmur , JVD, systolic murmur - GI/Abdominal GI/Abdominal exam: Present: normal bowel sounds, soft. Absent: ascites, distended, mass, organomegaly, tenderness - Extremities Exam Extremities exam: Present: normal inspection, full ROM - Back Exam Back exam: Present: normal inspection - Neurological Exam Neurological exam: Present: alert, oriented X3 - Psychiatric Psychiatric exam: Present: normal affect, normal mood - Skin Skin exam: Present: normal color, warm, dry Results - Labs CBC & BMP: 06/02/17 06:13 06/02/17 06:13 Lab Results: I have reviewed the past 24 hour labs Specialty Discharge - Follow Up or Referrals Follow up with: Rudolph Jones MD [Physician] - 06/30/17 8:40 am Jacinto Leslie [Primary Care Provider] - 1 Week (pt need appt to see PCP within 1 week of discharge date. Nurse to call Serena Russell customer care coordinator @[phone] to get appt. If over the weekend, please leave a voicemail and tell pt he will contact them on wednesday. All records need to be faxed to [phone]. Alt number for serena [phone].)
[2017-06-03] MEDS: ATORVASTATIN 80 MG TABLET PO SCH (10:03)
[2017-06-03] MEDS: LOTION (KERI) 236 ML BOTTLE TOP SCH (10:03)
[2017-06-03] MEDS: ISOSORBIDE MONONITRATE 30 MG TABLET PO SCH (10:03)
[2017-06-03] MEDS: LUBIPROSTONE 8 MCG CAPSULE PO SCH ×2 (10:03→21:19)
[2017-06-03] MEDS: DOCUSATE SODIUM 100 MG CAPSULE PO SCH ×2 (10:03→21:19)
[2017-06-03] MEDS: PANTOPRAZOLE 40 MG TABLET PO SCH ×2 (10:03→21:19)
[2017-06-03] MEDS: LOSARTAN 25 MG TABLET PO SCH (10:03)
[2017-06-03] MEDS: LEVOTHYROXINE 25 MCG TABLET PO SCH (10:03)
[2017-06-03] MEDS: DOXYCYCLINE HYCLATE 100 MG CAPSULE PO SCH ×2 (10:04→21:19)
[2017-06-03] MEDS: METOPROLOL SUCCINATE XL 25 MG TABLET PO SCH ×2 (10:04→21:19)
--- NOTE | 2017-06-03 12:37 | Dialysis Note ---
Dialysis Note - Dialysis Note Ms. Martinez is seen during her hemodialysis. She is minimally conversant today but is doing fairly well and is stable hemodynamically.
--- NOTE | 2017-06-03 17:05 | Hospitalist Progress Note ---
Hospitalist: Subjective Interval history: Patient is lethargic but arousable. Not in any distress Exam - Constitutional Vitals: Period Temp Pulse Resp BP Sys/Herrera Pulse Ox Last 24 Hr 97.4 F-99.2 F 71-85 16-20 105-144/46-67 91-100 Exam: General: No Acute Distress HEENT: Normocephalic, atraumatic, Extra ocular movements intact Neck: Supple, No JVD Chest: Clear to auscultation B/L CV: S1 + S2 audible without murmur, gallop or rub Abd: soft, NT, Non-distended, BS + Ext: No edema Skin: No purpura, bruising or rash Rheumatologic: No Joint deformities Neurologic: Awake and alert Results - Labs CBC & BMP: 06/02/17 06:13 06/02/17 06:13 - Impressions Jaundice with elevated liver enzymes Status: Acute Assessment and plan: Previous to be due to advanced liver disease. ERCP done 06/02. She has cholelithiasis Current Visit: Yes Peptic ulcer disease Status: Acute Assessment and plan: Multiple ulcers in duodenal bulb and post bulbar duodenum, she is on PPI Current Visit: Yes Coronary artery disease Status: Chronic Assessment and plan: Stable. Had previous runs of nonsustained V. tach but has declined heart cath repeatedly. Current Visit: Yes Acute on chronic systolic congestive heart failure Status: Acute Assessment and plan: Baseline ejection fraction is 25% UF as tolerated by hemodynamics Current Visit: Yes End stage renal disease on HD Status: Chronic Assessment and plan: on HD with ultrafiltration Current Visit: Yes Quality Measures - Stroke Symptom Onset Unknown: No Specialty Discharge - Follow Up or Referrals Follow up with: Rudolph Jones MD [Physician] - 06/30/17 8:40 am Jacinto Leslie [Primary Care Provider] - 1 Week (pt need appt to see PCP within 1 week of discharge date. Nurse to call Guero Russell, after school caregiver @[phone] to get appt. If over the weekend, please leave a voicemail and tell pt he will contact them on wednesday. All records need to be faxed to [phone]. Alt number for guero [phone].)
--- NOTE | 2017-06-03 18:20 | Pathology Report from [facility] ---
[facility] [place] [id number] PATIENT NAME : Sandeep De Dios ORDERING DR : ARMIDA AN MD CLINICAL HX: Elevated LFTs POST-OP DX: Post bulbar duodenum ulcers SPECIMEN INFO: Duodenum biopsy GROSS DESCRIPTION: The specimen is received in formalin labeled with the patients name and consists of a 0.4 x 0.2 cm aggregate of garcía tissue. Submitted in one cassette. DIAGNOSIS FOR SANDEEP DE DIOS: DUODENUM, BIOPSY: Severe acute and chronic duodenitis with surface ulcerations. COLLECTED DATE: 06/02/2017 [facility] [place] DATE: 06/03/2017 ELECTRONICALLY SIGNED BY: Roxanne Lane M.D. 06/03/2017 - 14:24:40 [facility]
[2017-06-03] MEDS: ONDANSETRON 4 MG/2 ML VIAL IV PRN (21:17)
[2017-06-04] MEDS: ALBUTEROL 2.5 MG/3 ML NEB RESP TX SCH ×5 (03:29→19:22)
[2017-06-04] MEDS: INSULIN ASPART PROTAMINE/ASPART 70/30 100 UNIT/ML SUBCUT SCH ×2 (09:30→17:13)
[2017-06-04] MEDS: ISOSORBIDE MONONITRATE 30 MG TABLET PO SCH (09:32)
[2017-06-04] MEDS: LUBIPROSTONE 8 MCG CAPSULE PO SCH ×2 (09:32→22:10)
[2017-06-04] MEDS: LEVOTHYROXINE 25 MCG TABLET PO SCH (09:32)
[2017-06-04] MEDS: DOCUSATE SODIUM 100 MG CAPSULE PO SCH ×2 (09:32→22:11)
[2017-06-04] MEDS: DOXYCYCLINE HYCLATE 100 MG CAPSULE PO SCH (09:32)
[2017-06-04] MEDS: LOSARTAN 25 MG TABLET PO SCH (09:32)
[2017-06-04] MEDS: METOPROLOL SUCCINATE XL 25 MG TABLET PO SCH ×2 (09:32→22:13)
[2017-06-04] MEDS: ATORVASTATIN 80 MG TABLET PO SCH (09:32)
[2017-06-04] MEDS: PANTOPRAZOLE 40 MG TABLET PO SCH ×2 (09:32→22:11)
--- NOTE | 2017-06-04 09:37 | Gastrointestinal Progress Note ---
Assessment and Plan (1) Elevated liver enzymes Problem details: Evaluation by GI underway. Status: Acute Assessment and plan: 06/04-labs pending for this morning. Mild epigastric tenderness. Continue to monitor present time. Plan an addendum to followed by Dr. Ohara. 06/03-Bilirubin elevated. No complaints of pain. Tolerating diet. For dialysis today. ERCP findings noted as below. Plan and addendum to follow by Dr Ohara. 06/01-continued elevated LFTs. No complaints of pain today. ERCP canceled and postponed at this time until venous access can be obtained. We will tentatively reschedule for tomorrow if IV access can be obtained prior to procedure time. Dr. Wilcox consulted for possible central line placement. Case discussed with ABIGAIL Moran. Plan and addendum to follow by Dr. Ohara. 05/31-continued elevated LFTs. Complaints of pain. Proceed with MRCP today to further evaluate. Plan an addendum to followed by Dr. Ohara. 05/26-awaiting lab results at this time. Continue n.p.o. status for present time due to possible consideration for ERCP if necessary. Further plan an addendum to followed by Dr. Ohara 05/27-bilirubin is 6 today. Abdominal ultrasound results noted as below. Continued pruritus. Plan an addendum to followed by Dr. Ohara. 05/26-admitted with shortness of breath and edema with findings of elevated LFTs as noted below. No known prior history of liver disease or gallbladder disease in the past. Hepatitis panel and YOAV pending at present time. Will obtain gallbladder ultrasound in the morning to further evaluate. Plan an addendum to followed by Dr. Ohara. Current Visit: Yes Gastroenterology - PN: Subj Interval history: CC: Elevated LFTs Patient is seen, awake and alert. She denies any abdominal pain at this time. Her repeat labs are pending for this morning including LFTs and ammonia. She does have a small amount of epigastric tenderness on exam. Pathology report shows severe acute and chronic duodenitis with surface ulcerations from her duodenum biopsy. Serum gastrin level still pending. Abdomen soft, nontender. ROS: Denies shortness of breath or chest pain Exam (Progress Note) - Constitutional Vitals: Period Temp Pulse Resp BP Sys/Herrera Pulse Ox Last 24 Hr 96.6 F-99.6 F 74-87 16-20 89-127/35-51 90-100 - Other Additional findings: General appearance: normal weight, no acute distress - Head Head exam: Present: normal inspection, normocephalic - Eye Eye exam: Present: scleral icterus, other (lids and conjunctiva unremarkable) - ENT ENT exam: Present: normal exam, normal oropharynx - Neck Neck exam: Present: normal inspection - Respiratory Respiratory exam: Present: clear to auscultation bilaterally. Absent: rales, rhonchi, wheezes - Cardiovascular Cardiovascular exam: Present: regular rate and rhythm. Absent: diastolic murmur , JVD, systolic murmur - GI/Abdominal GI/Abdominal exam: Present: normal bowel sounds, soft. Absent: ascites, distended, mass, organomegaly, tenderness - Extremities Exam Extremities exam: Present: normal inspection, full ROM - Back Exam Back exam: Present: normal inspection - Neurological Exam Neurological exam: Present: alert, oriented X3 - Psychiatric Psychiatric exam: Present: normal affect, normal mood - Skin Skin exam: Present: normal color, warm, dry Results - Labs CBC & BMP: 06/02/17 06:13 06/02/17 06:13 Lab Results: I have reviewed the past 24 hour labs Specialty Discharge - Follow Up or Referrals Follow up with: Rudolph Jones MD [Physician] - 06/30/17 8:40 am Jacinto Leslie [Primary Care Provider] - 1 Week (pt need appt to see PCP within 1 week of discharge date. Nurse to call Serena Russell child adolescent care @[phone] to get appt. If over the weekend, please leave a voicemail and tell pt he will contact them on wednesday. All records need to be faxed to [phone]. Alt number for serena [phone].)
[2017-06-04] MEDS: LOTION (KERI) 236 ML BOTTLE TOP SCH (09:41)
--- NOTE | 2017-06-04 09:50 | Nephrology Progress Note ---
Nephrology - PN: Subj Interval history: Ms De Dios tolerated routine CHD yesterday s complications. She denies SOB/pain currently. Exam (PN)-Nephrology - Vital Signs Vital signs: Period Temp Pulse Resp BP Sys/Herrera Pulse Ox Last 24 Hr 96.6 F-99.6 F 74-87 16-20 89-127/35-51 90-100 - General Appearance General appearance: well-developed, chronically ill EENT: ATNC, PERRL, mucous membranes dry, hearing intact, vision intact Neck: no JVD, no thyromegaly Respiratory: no kyphosis, clear Cardiology: no murmurs, no rub, edema (improved) Gastrointestinal: normoactive bowel sounds, no tenderness Integumentary: no rash, warm and dry Neurologic: no focal deficit, no asterixis, alert and oriented x3 Musculoskeletal: no deformities, no erythema Psychiatric: mood/affect appropriate, cooperative - Lab 06/02/17 06:13 06/02/17 06:13 Most recent lab results Calcium 8.9 MG/DL (8.5-10.1) 06/02/17 06:13 Magnesium 2.7 MG/DL (1.8-2.4) H 05/27/17 05:26 Assessment and Plan (1) End stage renal disease on dialysis Problem details: Routine CHD tomorrow. UF as tolerated by hemodynamics. Status : Chronic Assessment and plan: Next routine CHD scheduled for tomorrow. UF as tolerated by hemodynamics. Epogen 8k units IVPB p HD. Current Visit: Yes (2) ASCVD (arteriosclerotic cardiovascular disease) Status: Chronic Assessment and plan: Current Visit: Yes (3) Diabetes mellitus Status: Chronic Current Visit: No Specialty Discharge - Follow Up or Referrals Follow up with: Rudolph Jones MD [Physician] - 06/30/17 8:40 am Jacinto Leslie [Primary Care Provider] - 1 Week (pt need appt to see PCP within 1 week of discharge date. Nurse to call Guero Russell acute care assistant @[phone] to get appt. If over the weekend, please leave a voicemail and tell pt he will contact them on wednesday. All records need to be faxed to [phone]. Alt number for guero [phone].)
[2017-06-04 09:53] LABS: Albumin 1.8 G/DL (3.4-5.0); Bilirubin,Direct 10.01 MG/DL (0.0-0.20); Bilirubin,Indirect 2.1 MG/DL (0.0-1.0); Total Protein 6.2 G/DL (6.4-8.3)
[2017-06-04 10:01] LABS: Bilirubin,Total 12.1 MG/DL (0.2-1.0)
--- NOTE | 2017-06-04 15:09 | Hospitalist Progress Note ---
Hospitalist: Subjective Interval history: Pt more alert today. Exam - Constitutional Vitals: Period Temp Pulse Resp BP Sys/Herrera Pulse Ox Last 24 Hr 96.6 F-99.6 F 74-87 16-20 89-111/35-51 90-100 Exam: General: No Acute Distress HEENT: Normocephalic, atraumatic, Extra ocular movements intact Neck: Supple, No JVD Chest: Clear to auscultation B/L CV: S1 + S2 audible without murmur, gallop or rub Abd: soft, NT, Non-distended, BS + Ext: No edema Skin: No purpura, bruising or rash Rheumatologic: No Joint deformities Neurologic: Awake and alert Results - Labs CBC & BMP: 06/02/17 06:13 06/02/17 06:13 - Impressions Impressions Cholestatic Jaundice with elevated liver enzymes Status: Acute Assessment and plan: Previous to be due to advanced liver disease. ERCP done 06/02. She has cholelithiasis. Doxycycline & Cozaar held due to worsening jaundice Current Visit: Yes Peptic ulcer disease Status: Acute Assessment and plan: Multiple ulcers in duodenal bulb and post bulbar duodenum, she is on PPI Current Visit: Yes Coronary artery disease Status: Chronic Assessment and plan: Stable. Had previous runs of nonsustained V. tach but has declined heart cath repeatedly. Current Visit: Yes Acute on chronic systolic congestive heart failure Status: Acute Assessment and plan: Baseline ejection fraction is 25% UF as tolerated by hemodynamics Current Visit: Yes End stage renal disease on HD Status: Chronic Assessment and plan: on HD with ultrafiltration Current Visit: Yes Quality Measures - Stroke Symptom Onset Unknown: No Specialty Discharge - Follow Up or Referrals Follow up with: Rudolph Jones MD [Physician] - 06/30/17 8:40 am Jacinto Leslie [Primary Care Provider] - 1 Week (pt need appt to see PCP within 1 week of discharge date. Nurse to call Guero Russell nursing care partner @[phone] to get appt. If over the weekend, please leave a voicemail and tell pt he will contact them on wednesday. All records need to be faxed to [phone]. Alt number for guero [phone].)
[2017-06-04] MEDS: DEXTROSE 50% 25 GM/50 ML SYRINGE IV PRN (20:31)
[2017-06-05] MEDS: ALBUTEROL 2.5 MG/3 ML NEB RESP TX SCH ×7 (00:17→23:58)
[2017-06-05] MEDS: INSULIN ASPART PROTAMINE/ASPART 70/30 100 UNIT/ML SUBCUT SCH ×2 (13:21→17:16)
[2017-06-05] MEDS: METOPROLOL SUCCINATE XL 25 MG TABLET PO SCH ×2 (13:23→21:05)
[2017-06-05] MEDS: ISOSORBIDE MONONITRATE 30 MG TABLET PO SCH (13:23)
[2017-06-05] MEDS: LUBIPROSTONE 8 MCG CAPSULE PO SCH ×2 (13:25→21:05)
[2017-06-05] MEDS: LEVOTHYROXINE 25 MCG TABLET PO SCH (13:25)
[2017-06-05] MEDS: PANTOPRAZOLE 40 MG TABLET PO SCH ×2 (13:26→21:04)
[2017-06-05] MEDS: LOTION (KERI) 236 ML BOTTLE TOP SCH (13:26)
[2017-06-05] MEDS: DOCUSATE SODIUM 100 MG CAPSULE PO SCH ×2 (13:26→21:04)
--- NOTE | 2017-06-05 13:49 | Dialysis Note ---
Dialysis Note - Dialysis Note Patient seen on dialysis. She tolerated the procedure. Blood pressure is noted to be 110/50. Cardiovascular regular rate. Lungs clear to auscultation. Abdomen soft.
--- NOTE | 2017-06-05 14:28 | Hospitalist Progress Note ---
Hospitalist: Subjective Interval history: Patient awake and comfortable Exam - Constitutional Vitals: Period Temp Pulse Resp BP Sys/Herrera Pulse Ox Last 24 Hr 97.2 F-98.7 F 64-82 12-20 85-111/31-54 82-100 Exam: General: No Acute Distress HEENT: Normocephalic, atraumatic, Extra ocular movements intact Neck: Supple, No JVD Chest: Clear to auscultation B/L CV: S1 + S2 audible without murmur, gallop or rub Abd: soft, NT, Non-distended, BS + Ext: No edema Skin: No purpura, bruising or rash Rheumatologic: No Joint deformities Neurologic: Awake and alert Results - Labs CBC & BMP: 06/02/17 06:13 06/02/17 06:13 - Impressions Impressions Cholestatic Jaundice with elevated liver enzymes Status: Acute Assessment and plan: Previous to be due to advanced liver disease. ERCP done 06/02. She has cholelithiasis. Doxycycline & Cozaar held due to worsening jaundice, monitor LFTs Current Visit: Yes Peptic ulcer disease Status: Acute Assessment and plan: Multiple ulcers in duodenal bulb and post bulbar duodenum, she is on PPI Current Visit: Yes Coronary artery disease Status: Chronic Assessment and plan: Stable. Had previous runs of nonsustained V. tach but has declined heart cath repeatedly. Current Visit: Yes Acute on chronic systolic congestive heart failure Status: Acute Assessment and plan: Baseline ejection fraction is 25% UF as tolerated by hemodynamics Current Visit: Yes End stage renal disease on HD Status: Chronic Assessment and plan: on HD with ultrafiltration Current Visit: Yes Quality Measures - Stroke Symptom Onset Unknown: No Specialty Discharge - Follow Up or Referrals Follow up with: Rudolph Jones MD [Physician] - 06/30/17 8:40 am Jacinto Leslie [Primary Care Provider] - 1 Week (pt need appt to see PCP within 1 week of discharge date. Nurse to call Guero Russell child care associate teacher @[phone] to get appt. If over the weekend, please leave a voicemail and tell pt he will contact them on wednesday. All records need to be faxed to [phone]. Alt number for guero [phone].)
[2017-06-06] MEDS: ALBUTEROL 2.5 MG/3 ML NEB RESP TX SCH ×2 (03:07→07:30)
[2017-06-06] MEDS: INSULIN ASPART PROTAMINE/ASPART 70/30 100 UNIT/ML SUBCUT SCH ×2 (09:21→17:47)
[2017-06-06] MEDS: LEVOTHYROXINE 25 MCG TABLET PO SCH (09:23)
[2017-06-06] MEDS: PANTOPRAZOLE 40 MG TABLET PO SCH ×2 (09:25→21:48)
[2017-06-06] MEDS: METOPROLOL SUCCINATE XL 25 MG TABLET PO SCH ×2 (09:25→22:05)
[2017-06-06] MEDS: DOCUSATE SODIUM 100 MG CAPSULE PO SCH ×2 (09:25→21:48)
[2017-06-06] MEDS: ISOSORBIDE MONONITRATE 30 MG TABLET PO SCH (09:25)
[2017-06-06] MEDS: LUBIPROSTONE 8 MCG CAPSULE PO SCH ×2 (09:25→21:48)
[2017-06-06] MEDS: LOTION (KERI) 236 ML BOTTLE TOP SCH (09:25)
--- NOTE | 2017-06-06 10:49 | Nephrology Progress Note ---
Nephrology - PN: Subj Interval history: The patient is sitting up on side of the bed resting. She voices no complaints. She tolerated dialysis on yesterday. She has been afebrile and vital signs have been stable. Exam (PN)-Nephrology - Vital Signs Vital signs: Period Temp Pulse Resp BP Sys/Herrera Pulse Ox Last 24 Hr 97.7 F-99.8 F 65-85 17-20 93-109/43-57 82-99 - General Appearance General appearance: well-developed, well-nourished EENT: ATNC Neck: supple Respiratory: clear Cardiology: regular rate, regular rhythm Gastrointestinal: normoactive bowel sounds, no tenderness Neurologic: alert and oriented x3 Musculoskeletal: no clubbing Psychiatric: mood/affect appropriate, cooperative - Lab 06/02/17 06:13 06/02/17 06:13 Most recent lab results Calcium 8.9 MG/DL (8.5-10.1) 06/02/17 06:13 Magnesium 2.7 MG/DL (1.8-2.4) H 05/27/17 05:26 Assessment and Plan (1) End stage renal disease on dialysis Problem details: Routine CHD tomorrow. UF as tolerated by hemodynamics. Status : Chronic Current Visit: Yes (2) Tobacco abuse Status: Chronic Current Visit: No (3) Hypertension Status: Chronic Current Visit: No Qualifiers: Hypertension type: essential hypertension Qualified Code(s): I10 - Essential (primary) hypertension (4) Diabetes mellitus Status: Chronic Current Visit: No Qualifiers: Diabetes mellitus type: type 2 Chronic kidney disease stage: on chronic dialysis Specialty Discharge - Follow Up or Referrals Follow up with: Rudolph Jones MD [Physician] - 06/30/17 8:40 am Jacinto Leslie [Primary Care Provider] - 1 Week (pt need appt to see PCP within 1 week of discharge date. Nurse to call Guero Russell, tire care manager @[phone] to get appt. If over the weekend, please leave a voicemail and tell pt he will contact them on wednesday. All records need to be faxed to [phone]. Alt number for guero [phone].)
--- NOTE | 2017-06-06 16:08 | Hospitalist Progress Note ---
Hospitalist: Subjective Interval history: Patient is quite comfortable, patient has been refusing lab draws, and tries to go downstairs for smoking Exam - Constitutional Vitals: Period Temp Pulse Resp BP Sys/Herrera Pulse Ox Last 24 Hr 97.9 F-99.8 F 74-85 17-20 93-109/43-52 90-99 Exam: General: No Acute Distress HEENT: Normocephalic, atraumatic, Extra ocular movements intact Neck: Supple, No JVD Chest: Clear to auscultation B/L CV: S1 + S2 audible without murmur, gallop or rub Abd: soft, NT, Non-distended, BS + Ext: No edema Skin: No purpura, bruising or rash Rheumatologic: No Joint deformities Neurologic: Awake and alert Results - Labs CBC & BMP: 06/02/17 06:13 06/02/17 06:13 - Impressions Impressions Cholestatic Jaundice with elevated liver enzymes Status: Acute Assessment and plan: Previous to be due to advanced liver disease. ERCP done 06/02. She has cholelithiasis. Doxycycline & Cozaar held due to worsening jaundice, monitor LFTs, patient has been refusing lab draws Current Visit: Yes Peptic ulcer disease Status: Acute Assessment and plan: Multiple ulcers in duodenal bulb and post bulbar duodenum, she is on PPI Current Visit: Yes Coronary artery disease Status: Chronic Assessment and plan: Stable. Had previous runs of nonsustained V. tach but has declined heart cath repeatedly. Current Visit: Yes Acute on chronic systolic congestive heart failure Status: Acute Assessment and plan: Baseline ejection fraction is 25% UF as tolerated by hemodynamics Current Visit: Yes End stage renal disease on HD Status: Chronic Assessment and plan: on HD with ultrafiltration Current Visit: Yes Quality Measures - Stroke Symptom Onset Unknown: No Specialty Discharge - Follow Up or Referrals Follow up with: Rudolph Jones MD [Physician] - 06/30/17 8:40 am Jacinto Leslie [Primary Care Provider] - 1 Week (pt need appt to see PCP within 1 week of discharge date. Nurse to call Guero Russell field care manager @[phone] to get appt. If over the weekend, please leave a voicemail and tell pt he will contact them on wednesday. All records need to be faxed to [phone]. Alt number for guero [phone].)
--- NOTE | 2017-06-07 08:26 | Nephrology Progress Note ---
Nephrology - PN: Subj Interval history: Ms De Dios denies SOB/pain. Tolerated routine CHD Wednesday s complications. Exam (PN)-Nephrology - Vital Signs Vital signs: Period Temp Pulse Resp BP Sys/Herrera Pulse Ox Last 24 Hr 97.2 F-99.3 F 71-78 12-20 92-112/45-54 90-99 - General Appearance General appearance: well-developed, chronically ill EENT: ATNC, PERRL, hearing intact, vision intact Neck: no JVD, no thyromegaly Respiratory: no kyphosis, clear Cardiology: no murmurs, no rub Gastrointestinal: normoactive bowel sounds, no tenderness Integumentary: no rash, warm and dry Neurologic: no focal deficit, no asterixis, alert and oriented x3 Musculoskeletal: no deformities Psychiatric: mood/affect appropriate, cooperative - Lab 06/02/17 06:13 06/02/17 06:13 Most recent lab results Calcium 8.9 MG/DL (8.5-10.1) 06/02/17 06:13 Magnesium 2.7 MG/DL (1.8-2.4) H 05/27/17 05:26 Assessment and Plan (1) Elevated liver enzymes Problem details: Evaluation by GI underway. Status: Acute Assessment and plan: LAEs rising still. Etiology TBD. Current Visit: Yes (2) End stage renal disease on dialysis Problem details: Routine CHD tomorrow. UF as tolerated by hemodynamics. Status : Chronic Assessment and plan: Next routine CHD scheduled for tomorrow. UF as tolerated by hemodynamics. Epogen 8k units IVPB p HD. Current Visit: Yes (3) ASCVD (arteriosclerotic cardiovascular disease) Status: Chronic Assessment and plan: Worsening biventricular failure. Current Visit: Yes Specialty Discharge - Follow Up or Referrals Follow up with: Rudolph Jones MD [Physician] - 06/30/17 8:40 am Jacinto Leslie [Primary Care Provider] - 1 Week (pt need appt to see PCP within 1 week of discharge date. Nurse to call Guero Russell manager medicare @[phone] to get appt. If over the weekend, please leave a voicemail and tell pt he will contact them on wednesday. All records need to be faxed to [phone]. Alt number for guero [phone].)
[2017-06-07] MEDS: LUBIPROSTONE 8 MCG CAPSULE PO SCH (09:09)
[2017-06-07] MEDS: DOCUSATE SODIUM 100 MG CAPSULE PO SCH (09:09)
[2017-06-07] MEDS: LEVOTHYROXINE 25 MCG TABLET PO SCH (09:10)
[2017-06-07] MEDS: ISOSORBIDE MONONITRATE 30 MG TABLET PO SCH (09:10)
[2017-06-07] MEDS: PANTOPRAZOLE 40 MG TABLET PO SCH (09:10)
[2017-06-07] MEDS: METOPROLOL SUCCINATE XL 25 MG TABLET PO SCH (09:10)
[2017-06-07] MEDS: INSULIN ASPART PROTAMINE/ASPART 70/30 100 UNIT/ML SUBCUT SCH (09:18)
--- NOTE | 2017-06-07 09:36 | Gastrointestinal Progress Note ---
Assessment and Plan (1) Elevated liver enzymes Problem details: Evaluation by GI underway. Status: Acute Assessment and plan: 06/07-labs pending for this morning. No complaints of pain. Continue to monitor present time. Plan an addendum to followed by Dr. Ohara. 06/04-labs pending for this morning. Mild epigastric tenderness. Continue to monitor present time. Plan an addendum to followed by Dr. Ohara. 06/03-Bilirubin elevated. No complaints of pain. Tolerating diet. For dialysis today. ERCP findings noted as below. Plan and addendum to follow by Dr Ohara. 06/01-continued elevated LFTs. No complaints of pain today. ERCP canceled and postponed at this time until venous access can be obtained. We will tentatively reschedule for tomorrow if IV access can be obtained prior to procedure time. Dr. Wilcox consulted for possible central line placement. Case discussed with ABIGAIL Moran. Plan and addendum to follow by Dr. Ohara. 05/31-continued elevated LFTs. Complaints of pain. Proceed with MRCP today to further evaluate. Plan an addendum to followed by Dr. Ohara. 05/26-awaiting lab results at this time. Continue n.p.o. status for present time due to possible consideration for ERCP if necessary. Further plan an addendum to followed by Dr. Ohara 05/27-bilirubin is 6 today. Abdominal ultrasound results noted as below. Continued pruritus. Plan an addendum to followed by Dr. Ohara. 05/26-admitted with shortness of breath and edema with findings of elevated LFTs as noted below. No known prior history of liver disease or gallbladder disease in the past. Hepatitis panel and YOAV pending at present time. Will obtain gallbladder ultrasound in the morning to further evaluate. Plan an addendum to followed by Dr. Ohara. Current Visit: Yes Gastroenterology - PN: Subj Interval history: CC: Elevated LFTs Patient is seen awake and alert. States that she is feeling fairly well today. She denies any abdominal pain, nausea or vomiting. She is for dialysis later this morning. Her LFTs are noted to be pending and will be drawn during dialysis. Abdomen is soft, nontender. There is potential for discharge home today per nursing staff however no concrete plans for this at this time. Serum gastrin level still remains pending. ROS: Denies shortness of breath or chest pain Exam (Progress Note) - Constitutional Vitals: Period Temp Pulse Resp BP Sys/Herrera Pulse Ox Last 24 Hr 97.2 F-99.3 F 71-78 12-20 92-133/45-54 90-99 General appearance: normal weight, no acute distress - Head Head exam: Present: normal inspection, normocephalic - Eye Eye exam: Present: other (Lids and conjunctivae are unremarkable). Absent: scleral icterus - ENT ENT exam: Present: normal exam, normal oropharynx - Neck Neck exam: Present: normal inspection - Respiratory Respiratory exam: Present: clear to auscultation bilaterally. Absent: rales, rhonchi, wheezes - Cardiovascular Cardiovascular exam: Present: regular rate and rhythm. Absent: diastolic murmur , JVD, systolic murmur - GI/Abdominal GI/Abdominal exam: Present: normal bowel sounds, soft. Absent: ascites, distended, mass, organomegaly, tenderness - Extremities Exam Extremities exam: Present: normal inspection, full ROM - Back Exam Back exam: Present: normal inspection - Neurological Exam Neurological exam: Present: alert, oriented X3 - Psychiatric Psychiatric exam: Present: normal affect, normal mood - Skin Skin exam: Present: normal color, warm, dry Results - Labs CBC & BMP: 06/02/17 06:13 06/02/17 06:13 Lab Results: I have reviewed the past 24 hour labs Specialty Discharge - Follow Up or Referrals Follow up with: Rudolph Jones MD [Physician] - 06/30/17 8:40 am Jacinto Leslie [Primary Care Provider] - 1 Week (pt need appt to see PCP within 1 week of discharge date. Nurse to call Serena Russell before and after school daycare worker @[phone] to get appt. If over the weekend, please leave a voicemail and tell pt he will contact them on wednesday. All records need to be faxed to [phone]. Alt number for serena [phone].)
[2017-06-07] MEDS: LOTION (KERI) 236 ML BOTTLE TOP SCH (11:06)
[2017-06-07 11:26] VITALS: BP 108/52
--- NOTE | 2017-06-07 13:18 | Discharge Summary ---
Hospital Course - Hospital Course Hospital Course: 66-year-old female with history of end-stage renal disease on HD, hypertension, COPD, CHF and history of noncompliance and diabetes admitted by the hospitalist on 05/25/2017 with chest pain. Cardiology and nephrology followed the patient during this hospital stay. Patient does have severe ischemic cardiomyopathy and Dr. French did offer her heart catheterization. She changed her mind multiple times and essentially declined. They added a high intensity statin and adjusted her heart medications. Her EF had dropped from mildly reduced to severely reduced in the last year and a half. Patient also was found to have increasing LFTs with evidence of jaundice along with ALP elevation. Dr. Ohara from gastroenterology was consulted. Gallbladder ultrasound was noted to have sludge with normal common bile duct diameter. Viral hepatitis panel and autoimmune markers were negative. MRCP suggested cholelithiasis/ gallbladder sludge. Dr. Wilcox was consulted for central line placement due to loss of IV access and ERCP delayed another day. ERCP done on 06/02/2017 showed cholelithiasis and multiple ulcers in the duodenal bulb and postbulbar duodenum. Dr. Ohara recommended PPI therapy twice daily and follow-up pathology. He feels her jaundice was related to advanced liver disease/hepatic dysfunction with negative workup and no medicines as the source. He feels liver biopsy would not likely knife changer. Her doxycycline and Cozaar have been held. Patient is now refusing all blood draws and any treatment. She is reached maximal hospital benefit. She will be discharged home with a follow-up with her PCP with LFTs and Dr. Jones. Care coordination, chart review, and completed discharge paperwork took approximately 47 minutes. - Time spent with patient Time with patient DS: Greater than 30 minutes Diagnosis - Discharge Diagnosis (1) End stage renal disease on dialysis Status: Chronic (2) Hypertension Status: Chronic (3) Diabetes mellitus Status: Chronic (4) Hyperlipidemia Status: Chronic (5) Volume overload Status: Resolved (6) Skin rash Status: Chronic (7) Itching Status: Chronic (8) Atypical chest pain Status: Resolved (9) ASCVD (arteriosclerotic cardiovascular disease) Status: Chronic (10) Elevated liver enzymes Status: Chronic Specialty Discharge - Follow Up or Referrals Follow up with: Rudolph Jones MD [Physician] - 06/30/17 8:40 am Jacinto Leslie [Primary Care Provider] - 1 Week (pt need appt to see PCP within 1 week of discharge date. Nurse to call Serena Russell, date night caregiver @[phone] to get appt. If over the weekend, please leave a voicemail and tell pt he will contact them on wednesday. All records need to be faxed to [phone]. Alt number for serena [phone].) Discharge Plan - Discharge Data Disposition: Disch To Home/Self Care Condition at Discharge: Stable Discharge Diet: diabetic diet, heart healthy Activity: resume usual activities as tolerated Contact your physician if you experience:: fever over 101, Shortness of breath - Discharge Medications New Isosorbide Mononitrate [Imdur] 30 mg PO DAILY #30 tablet Metoprolol Succinate Xl [Toprol Xl] 25 mg PO BID #60 tablet Pantoprazole Tab [Protonix Tab] 40 mg PO BID #60 tablet Continue Levothyroxine Tab [Synthroid Tab] 25 mcg PO DAILY Insulin Aspart Prot/Asp 70/30 [NovoLOG Mix 70/30] 40 unit SUBCUT AC BREAKFAST Insulin Aspart Prot/Asp 70/30 [NovoLOG Mix 70/30] 20 unit SUBCUT AC SUPPER Albuterol Sulfate [Ventolin HFA] 2 puff INH Q4H Aspirin Tab 325 mg PO DAILY #30 tablet diphenhydrAMINE CAP [Benadryl Cap] 25 mg PO Q4H PRN capsule PRN Reason: Itching Lotion (Mary) [Mary Lotion] 1 applic TOP DAILY applic Triamcinolone 0.1% Oint [Kenalog Oint 0.1%] 1 applic TOP BID PRN PRN Reason: Itching Tramadol HCl [Tramadol Tab] 50 mg PO Q6H PRN PRN Reason: Pain Hydrocodone/Acetaminophen [[place] 10-325 Tablet] 1 each PO QID PRN PRN Reason: Pain Lubiprostone [Amitiza] 8 mcg PO BID Discontinued Carvedilol [Coreg] 3.125 mg PO BID W/MEALS #60 tablet Losartan [Cozaar] 25 mg PO DAILY #30 tablet Doxycycline Monohydrate [Avidoxy] 100 mg PO [id number] - Follow Up or Referral Follow Up: Rudolph Jones MD [Physician] - 06/30/17 8:40 am Jacinto Leslie [Primary Care Provider] - 1 Week (pt need appt to see PCP within 1 week of discharge date. Nurse to call Serena Russell date night caregiver @[phone] to get appt. If over the weekend, please leave a voicemail and tell pt he will contact them on wednesday. All records need to be faxed to [phone]. Alt number for serena [phone].) - Forms/Instructions Instructions: Heart Failure (GEN), Chest Pain (DC), How to Stop Smoking (DC), Dialysis Diet (GEN), Fluid Restriction (GEN), End-Stage Kidney Disease (GEN) Exam - Constitutional Vitals: Period Temp Pulse Resp BP Sys/Herrera Pulse Ox Last 24 Hr 97.2 F-98.6 F 71-77 12-20 92-133/45-54 90-99 Exam: 66-year-old female, no acute distress, alert and oriented Chest clear CV regular rate and rhythm Abdomen obese, nontender Extremities no edema Discharge Results Procedures and tests throughout hospitalization: Pending Orders 06/03/17 07:14 Gastrin, S Routine 06/08/17 04:00 CBC [Comp Blood Count Auto Diff] IN AM LFT [Hepatic (Liver) Panel] IN AM Renal Function Panel IN AM 06/09/17 04:00 CBC [Comp Blood Count Auto Diff] IN AM LFT [Hepatic (Liver) Panel] IN AM Renal Function Panel IN AM 06/10/17 04:00 CBC [Comp Blood Count Auto Diff] IN AM LFT [Hepatic (Liver) Panel] IN AM Renal Function Panel IN AM Labs on day of discharge: Labs from last 24 hours 06/07/17 06/07/17 06/06/17 11:12 08:06 20:32 POC Glucose 170 H 130 H 198 H 06/06/17 16:33 POC Glucose 136 H DS: Provider Date of admission: 05/27/17 14:13 Primary care physician: Jacinto Leslie Attending physician on admission: Antoni Bryant MD Consults: 05/25/17 04:34 Consult to Physician [CONS] Routine Comment: Consulting Provider: Consult to Specialist Group: Cardiology When should Consulting Provider be notified: In am 05/25/17 07:18 Consult to Physician [CONS] Routine Comment: esrd Consulting Provider: Consult to Specialist Group: Nephrology When should Consulting Provider be notified: In am 05/26/17 10:33 Consult to Physician [CONS] Routine Comment: elevated lft Consulting Provider: Elie Ohara Consult to Specialist Group: Gastroenterology Consult Notification Comment: texted consult to Leelee at 1100 office returned call [phone] 06/01/17 14:10 Consult to Physician [CONS] Routine Comment: Central line access Consulting Provider: Derrick Wilcox Consult to Specialist Group: Surgery Person Notified: Elisa Date Notified: 06/01/17 Time Notified: 14:20 Consult Notification Comment: Discharging clinician: ABIGAIL Jimenez Expected date of discharge: 06/07/17
== END 2017-06-07 15:32 | disposition home or self-care (01) | DRG 291 ==
LOC: EDUNIT# → EDBD → N.EDINP 23:48 → N.ED 23:48 → SUATTDRO 05-25 04:32 → N.EDINP 05-25 12:39 → N.TELES 05-25 17:20 → SUATTDRO 05-27 14:13
PROVIDERS: ADMIT Internal Medicine; ATTEND Hospitalist

== ENCOUNTER 2017-09-23 02:54 | Inpatient (IN) ==
[2017-09-23 04:02] LABS: Basophils % 0.4 % (0.0-0.8); Eosinophils # 0.1 10*3/uL (0.0-0.87); Hematocrit 42.8 VOL% (35.7-47.0); Hemoglobin 13.7 GM/DL (12.0-16.0); Immature Granulocytes % 0.4 %; Immature Granulocytes Absolute 0.03 #; Lymphocytes # 0.7 10*3/uL (1.4-4.0); Lymphocytes % 8.9 % (21.3-54.2); Mean Corpuscular Hemoglobin 30 PG (27-34); Mean Corpuscular Volume 93.2 FL (87-102); Mean Platelet Volume 13.1 FL (9.6-12.0); Monocytes # 0.9 10*3/uL (0.11-0.8); Monocytes % 10.7 % (1.7-12.7); Neutrophils # 6.3 10*3/uL (1.4-7.4); Neutrophils % 78.6 % (38.7-73.9); Platelet Count 121 T/CUMM (130-400); Red Blood Count 4.59 MC/CUMM (3.8-5.5); Red Cell Distribution Width 18.3 % (9.3-17.3)
[2017-09-23 04:14] LABS: Alanine Aminotransferase 20 U/L (13-56); Albumin 2.8 G/DL (3.4-5.0); Alkaline Phosphatase 434 U/L (45-117); Aspartate Amino Transferase 43 U/L (0-37); Blood Urea Nitrogen 28 MG/DL (7-18); Calcium 8.9 MG/DL (8.5-10.1); Glucose 184 MG/DL (74-106); Osmolality,Calculated 283.8 MOS/KG (273-304); Potassium 2.9 MMOL/L (3.5-5.1); Sodium 137 MMOL/L (136-145); Total Protein 8.6 G/DL (6.4-8.3); Troponin I Only 0.026 NG/ML (0.00-0.045)
[2017-09-23] MEDS ORDERED: ONDANSETRON 4 MG/2 ML VIAL IV STA (04:28)
[2017-09-23] MEDS ORDERED: MORPHINE 2 MG/1 ML SYRINGE IV STA (04:28)
[2017-09-23] MEDS ORDERED: ONDANSETRON 4 MG/2 ML VIAL ONE (05:02)
[2017-09-23] MEDS ORDERED: MORPHINE 10 MG/1 ML VIAL ONE (05:03)
[2017-09-23] MEDS ORDERED: GLUCAGON 1 MG VIAL IM PRN ×2 (06:22)
[2017-09-23] MEDS ORDERED: ZALEPLON 5 MG CAPSULE PO PRN (06:22)
[2017-09-23] MEDS ORDERED: ACETAMINOPHEN 325 MG TABLET PO PRN (06:22)
[2017-09-23] MEDS ORDERED: ALBUTEROL 2.5 MG/3 ML NEB RESP TX PRN (06:22)
[2017-09-23] MEDS ORDERED: MORPHINE 2 MG/1 ML SYRINGE IV PRN (06:22)
[2017-09-23] MEDS ORDERED: DEXTROSE 50% 25 GM/50 ML VIAL IV PRN (06:22)
[2017-09-23] MEDS ORDERED: ONDANSETRON 4 MG/2 ML VIAL IV PRN (06:22)
[2017-09-23 07:06] LABS: Basophils % 0.2 % (0.0-0.8); Eosinophils # 0.1 10*3/uL (0.0-0.87); Eosinophils % 1.6 % (0.00-10.9); Hematocrit 37.1 VOL% (35.7-47.0); Hemoglobin 11.8 GM/DL (12.0-16.0); Immature Granulocytes % 0.5 %; Immature Granulocytes Absolute 0.04 #; Lymphocytes # 0.9 10*3/uL (1.4-4.0); Mean Corpuscular HGB Conc 31.8 GM/DL (32-36); Mean Corpuscular Hemoglobin 30 PG (27-34); Mean Corpuscular Volume 94.4 FL (87-102); Mean Platelet Volume 12.7 FL (9.6-12.0); Monocytes # 0.9 10*3/uL (0.11-0.8); Monocytes % 10.3 % (1.7-12.7); NRBC # 0.02 10*3/uL; Neutrophils # 6.3 10*3/uL (1.4-7.4); Neutrophils % 76.4 % (38.7-73.9); Platelet Count 116 T/CUMM (130-400); Red Blood Count 3.93 MC/CUMM (3.8-5.5); Red Cell Distribution Width 17.9 % (9.3-17.3); White Blood Count 8.3 T/CUMM (4-12)
[2017-09-23] MEDS ORDERED: TRIAMCINOLONE 0.1% OINT 15 GM TUBE TOP PRN (07:13)
[2017-09-23] MEDS: ALBUTEROL/IPRATROPIUM 3 ML NEB RESP TX SCH ×3 (07:58→19:37)
[2017-09-23] MEDS ORDERED: POTASSIUM CHLORIDE RIDER 10 MEQ in PREMIX 1 EACH IV PRN (08:27)
[2017-09-23] MEDS ORDERED: NALOXONE 0.4 MG/ML VIAL ONE (10:40)
[2017-09-23 11:23] LABS: Basophils % 0.4 % (0.0-0.8); Eosinophils # 0.1 10*3/uL (0.0-0.87); Eosinophils % 1.3 % (0.00-10.9); Hematocrit 37.1 VOL% (35.7-47.0); Hemoglobin 11.4 GM/DL (12.0-16.0); Immature Granulocytes % 0.5 %; Immature Granulocytes Absolute 0.04 #; Lymphocytes # 0.8 10*3/uL (1.4-4.0); Lymphocytes % 9.3 % (21.3-54.2); Mean Corpuscular HGB Conc 30.7 GM/DL (32-36); Mean Corpuscular Hemoglobin 29 PG (27-34); Mean Corpuscular Volume 95.6 FL (87-102); Mean Platelet Volume 13.4 FL (9.6-12.0); Monocytes # 0.9 10*3/uL (0.11-0.8); Monocytes % 10.9 % (1.7-12.7); Neutrophils # 6.4 10*3/uL (1.4-7.4); Neutrophils % 77.6 % (38.7-73.9); Platelet Count 108 T/CUMM (130-400); Red Blood Count 3.88 MC/CUMM (3.8-5.5); Red Cell Distribution Width 17.9 % (9.3-17.3); White Blood Count 8.2 T/CUMM (4-12)
[2017-09-23 12:22] LABS: Calcium 8.3 MG/DL (8.5-10.1); Osmolality,Calculated 287.4 MOS/KG (273-304)
[2017-09-23] MEDS: INSULIN REGULAR 100 UNIT/ML SUBCUT SCH ×3 (12:51→22:23)
[2017-09-23] MEDS: LUBIPROSTONE 8 MCG CAPSULE PO SCH ×2 (12:51→21:48)
[2017-09-23] MEDS: METOPROLOL SUCCINATE XL 25 MG TABLET PO SCH ×2 (12:52→21:48)
[2017-09-23] MEDS: ASPIRIN 325 MG TABLET PO SCH (12:52)
[2017-09-23] MEDS: PANTOPRAZOLE 40 MG TABLET PO SCH (12:52)
[2017-09-23] MEDS: LEVOTHYROXINE 25 MCG TABLET PO SCH (12:52)
[2017-09-23] MEDS: FUROSEMIDE 20 MG/2 ML VIAL IV SCH ×2 (12:53→18:53)
[2017-09-23] MEDS ORDERED: PHENYLEPHRINE DRIP 40 MG/250 ML PREMIX IV ONE (13:45)
[2017-09-23] MEDS: PHENYLEPHRINE DRIP 40 MG/250 ML PREMIX IV SCH (13:45)
[2017-09-23] MEDS: cefTRIAXone 1,000 MG in SYRINGE 1 EACH IV SCH (18:53)
[2017-09-23] MEDS: ISOSORBIDE MONONITRATE 30 MG TABLET PO SCH (21:48)
[2017-09-24] MEDS: PHENYLEPHRINE DRIP 40 MG/250 ML PREMIX IV SCH ×2 (00:39→15:57)
[2017-09-24] MEDS: ALBUTEROL/IPRATROPIUM 3 ML NEB RESP TX SCH ×5 (01:15→23:55)
[2017-09-24] MEDS: cefTRIAXone 1,000 MG in SYRINGE 1 EACH IV SCH (06:19)
[2017-09-24 07:40] LABS: Basophils % 0.5 % (0.0-0.8); Eosinophils # 0.1 10*3/uL (0.0-0.87); Eosinophils % 1.1 % (0.00-10.9); Hematocrit 34.5 VOL% (35.7-47.0); Hemoglobin 10.3 GM/DL (12.0-16.0); Immature Granulocytes % 0.3 %; Immature Granulocytes Absolute 0.02 #; Lymphocytes # 0.7 10*3/uL (1.4-4.0); Lymphocytes % 9.3 % (21.3-54.2); Mean Corpuscular HGB Conc 29.9 GM/DL (32-36); Mean Corpuscular Hemoglobin 29 PG (27-34); Mean Corpuscular Volume 98.3 FL (87-102); Mean Platelet Volume 12.2 FL (9.6-12.0); Monocytes % 12.9 % (1.7-12.7); NRBC # 0.02 10*3/uL; Neutrophils % 75.9 % (38.7-73.9); Platelet Count 123 T/CUMM (130-400); Red Blood Count 3.51 MC/CUMM (3.8-5.5); Red Cell Distribution Width 18.3 % (9.3-17.3); White Blood Count 7.9 T/CUMM (4-12)
[2017-09-24 08:20] LABS: Albumin 2.2 G/DL (3.4-5.0); Bilirubin,Total 0.9 MG/DL (0.2-1.0); Osmolality,Calculated 276.7 MOS/KG (273-304); Potassium 4.6 MMOL/L (3.5-5.1); Total Protein 7.8 G/DL (6.4-8.3)
[2017-09-24] MEDS: INSULIN REGULAR 100 UNIT/ML SUBCUT SCH ×4 (08:43→21:45)
[2017-09-24] MEDS: FUROSEMIDE 20 MG/2 ML VIAL IV SCH (09:00)
[2017-09-24] MEDS: ASPIRIN 325 MG TABLET PO SCH (09:00)
[2017-09-24] MEDS: METOPROLOL SUCCINATE XL 25 MG TABLET PO SCH ×2 (09:01→20:11)
[2017-09-24] MEDS: LUBIPROSTONE 8 MCG CAPSULE PO SCH ×2 (09:01→20:12)
[2017-09-24] MEDS: PANTOPRAZOLE 40 MG TABLET PO SCH (09:02)
[2017-09-24] MEDS: LEVOTHYROXINE 25 MCG TABLET PO SCH (09:02)
[2017-09-24] MEDS: LACTULOSE 20 GM/30 ML UDCUP PO SCH ×2 (17:40→23:15)
[2017-09-24] MEDS: ISOSORBIDE MONONITRATE 30 MG TABLET PO SCH (20:11)
[2017-09-25 05:32] LABS: Basophils # 0.1 10*3/uL (0.0-0.2); Basophils % 0.7 % (0.0-0.8); Eosinophils # 0.1 10*3/uL (0.0-0.87); Eosinophils % 0.8 % (0.00-10.9); Hematocrit 35.5 VOL% (35.7-47.0); Hemoglobin 10.6 GM/DL (12.0-16.0); Immature Granulocytes % 0.4 %; Immature Granulocytes Absolute 0.04 #; Lymphocytes % 11.3 % (21.3-54.2); Mean Corpuscular HGB Conc 29.9 GM/DL (32-36); Mean Corpuscular Hemoglobin 30 PG (27-34); Mean Corpuscular Volume 99.4 FL (87-102); Monocytes # 1.7 10*3/uL (0.11-0.8); Monocytes % 18.2 % (1.7-12.7); NRBC # 0.05 10*3/uL; Neutrophils # 6.2 10*3/uL (1.4-7.4); Neutrophils % 68.6 % (38.7-73.9); Platelet Count 141 T/CUMM (130-400); Red Blood Count 3.57 MC/CUMM (3.8-5.5); Red Cell Distribution Width 17.9 % (9.3-17.3); White Blood Count 9.1 T/CUMM (4-12)
[2017-09-25] MEDS: cefTRIAXone 1,000 MG in SYRINGE 1 EACH IV SCH (05:40)
[2017-09-25] MEDS: LACTULOSE 20 GM/30 ML UDCUP PO SCH ×3 (05:40→17:25)
[2017-09-25] MEDS: PHENYLEPHRINE DRIP 40 MG/250 ML PREMIX IV SCH ×2 (05:51→15:27)
[2017-09-25] MEDS ORDERED: MORPHINE 10 MG/1 ML VIAL IV PRN (06:30)
[2017-09-25 06:51] LABS: Hypochromasia 1+; Lymphocytes 11 % (20-55); Segmented Neutrophils 73 % (50-85); Total Cells Counted 100
[2017-09-25 06:52] LABS: Macrocytosis 1+; Platelet Estimate Adequate; Target Cells Slight
[2017-09-25 06:56] LABS: Calcium 8.9 MG/DL (8.5-10.1); Magnesium 2.5 MG/DL (1.8-2.4); Osmolality,Calculated 279.5 MOS/KG (273-304); Potassium 3.2 MMOL/L (3.5-5.1)
[2017-09-25] MEDS: ALBUTEROL/IPRATROPIUM 3 ML NEB RESP TX SCH ×3 (08:15→19:55)
[2017-09-25] MEDS: INSULIN REGULAR 100 UNIT/ML SUBCUT SCH ×4 (09:01→20:23)
[2017-09-25] MEDS: DEXTROSE 50% 25 GM/50 ML VIAL IV PRN (09:33)
[2017-09-25] MEDS: LEVOTHYROXINE 25 MCG TABLET PO SCH (09:33)
[2017-09-25] MEDS: PANTOPRAZOLE 40 MG TABLET PO SCH (09:33)
[2017-09-25] MEDS: ASPIRIN 325 MG TABLET PO SCH (09:33)
[2017-09-25] MEDS: LUBIPROSTONE 8 MCG CAPSULE PO SCH ×2 (09:33→20:23)
[2017-09-25] MEDS: METOPROLOL SUCCINATE XL 25 MG TABLET PO SCH ×2 (09:33→20:23)
[2017-09-25] MEDS ORDERED: PENICILLIN G BENZATHINE 1,200,000 UNIT/2 ML SYRINGE IM ONE ×2 (11:52→16:19)
[2017-09-25] MEDS: ISOSORBIDE MONONITRATE 30 MG TABLET PO SCH (20:23)
[2017-09-26] MEDS: LACTULOSE 20 GM/30 ML UDCUP PO SCH ×5 (00:27→22:51)
[2017-09-26] MEDS: PHENYLEPHRINE DRIP 40 MG/250 ML PREMIX IV SCH ×4 (01:35→22:52)
[2017-09-26] MEDS: ALBUTEROL/IPRATROPIUM 3 ML NEB RESP TX SCH ×4 (01:40→19:56)
[2017-09-26 05:18] LABS: Basophils # 0.1 10*3/uL (0.0-0.2); Basophils % 0.6 % (0.0-0.8); Eosinophils # 0.1 10*3/uL (0.0-0.87); Hematocrit 37.5 VOL% (35.7-47.0); Hemoglobin 11.4 GM/DL (12.0-16.0); Immature Granulocytes % 0.8 %; Immature Granulocytes Absolute 0.08 #; Lymphocytes # 0.8 10*3/uL (1.4-4.0); Lymphocytes % 8.1 % (21.3-54.2); Mean Corpuscular HGB Conc 30.4 GM/DL (32-36); Mean Corpuscular Hemoglobin 30 PG (27-34); Mean Corpuscular Volume 97.7 FL (87-102); Mean Platelet Volume 12.5 FL (9.6-12.0); Monocytes # 1.8 10*3/uL (0.11-0.8); Monocytes % 17.8 % (1.7-12.7); NRBC # 0.14 10*3/uL; Neutrophils # 7.4 10*3/uL (1.4-7.4); Neutrophils % 71.7 % (38.7-73.9); Platelet Count 136 T/CUMM (130-400); Red Blood Count 3.84 MC/CUMM (3.8-5.5); Red Cell Distribution Width 18.4 % (9.3-17.3); White Blood Count 10.3 T/CUMM (4-12)
[2017-09-26 05:19] LABS: Calcium 9.4 MG/DL (8.5-10.1); Magnesium 2.1 MG/DL (1.8-2.4); Osmolality,Calculated 278.4 MOS/KG (273-304); Potassium 3.4 MMOL/L (3.5-5.1)
[2017-09-26 05:58] LABS: Band Neutrophils 1 % (0-10); Lymphocytes 19 % (20-55); Segmented Neutrophils 80 % (50-85); Total Cells Counted 100
[2017-09-26 05:59] LABS: Macrocytosis 3+
[2017-09-26] MEDS: cefTRIAXone 1,000 MG in SYRINGE 1 EACH IV SCH (06:20)
[2017-09-26] MEDS: AZITHROMYCIN 250 MG TABLET PO SCH (06:23)
[2017-09-26] MEDS: INSULIN REGULAR 100 UNIT/ML SUBCUT SCH ×4 (08:02→21:01)
[2017-09-26] MEDS: ASPIRIN 325 MG TABLET PO SCH (08:20)
[2017-09-26] MEDS: PANTOPRAZOLE 40 MG TABLET PO SCH (08:20)
[2017-09-26] MEDS: METOPROLOL SUCCINATE XL 25 MG TABLET PO SCH ×2 (08:20→22:30)
[2017-09-26] MEDS: LEVOTHYROXINE 25 MCG TABLET PO SCH (08:20)
[2017-09-26] MEDS: LUBIPROSTONE 8 MCG CAPSULE PO SCH ×2 (08:21→22:30)
[2017-09-26] MEDS: DEXTROSE 50% 25 GM/50 ML VIAL IV PRN (09:08)
[2017-09-26] MEDS: ISOSORBIDE MONONITRATE 30 MG TABLET PO SCH (21:01)
[2017-09-27] MEDS: ALBUTEROL/IPRATROPIUM 3 ML NEB RESP TX SCH ×4 (02:22→19:35)
[2017-09-27] MEDS: LACTULOSE 20 GM/30 ML UDCUP PO SCH ×4 (04:22→22:41)
[2017-09-27] MEDS: AZITHROMYCIN 250 MG TABLET PO SCH (06:20)
[2017-09-27] MEDS: cefTRIAXone 1,000 MG in SYRINGE 1 EACH IV SCH (06:21)
[2017-09-27 06:35] LABS: Basophils # 0.1 10*3/uL (0.0-0.2); Basophils % 0.6 % (0.0-0.8); Eosinophils # 0.1 10*3/uL (0.0-0.87); Eosinophils % 1.1 % (0.00-10.9); Hematocrit 35.2 VOL% (35.7-47.0); Immature Granulocytes % 0.4 %; Immature Granulocytes Absolute 0.04 #; Lymphocytes % 10.5 % (21.3-54.2); Mean Corpuscular HGB Conc 31.3 GM/DL (32-36); Mean Corpuscular Hemoglobin 30 PG (27-34); Mean Corpuscular Volume 95.7 FL (87-102); Mean Platelet Volume 11.7 FL (9.6-12.0); Monocytes # 1.3 10*3/uL (0.11-0.8); Monocytes % 13.7 % (1.7-12.7); Neutrophils # 7.1 10*3/uL (1.4-7.4); Neutrophils % 73.7 % (38.7-73.9); Platelet Count 165 T/CUMM (130-400); Red Blood Count 3.68 MC/CUMM (3.8-5.5); Red Cell Distribution Width 18.6 % (9.3-17.3); White Blood Count 9.7 T/CUMM (4-12)
[2017-09-27 07:09] LABS: Albumin 2.5 G/DL (3.4-5.0); Bilirubin,Direct 1.06 MG/DL (0.0-0.20); Bilirubin,Indirect 0.8 MG/DL (0.0-1.0); Bilirubin,Total 1.9 MG/DL (0.2-1.0); Calcium 9.2 MG/DL (8.5-10.1); Magnesium 2.5 MG/DL (1.8-2.4); Osmolality,Calculated 289.1 MOS/KG (273-304); Potassium 3.4 MMOL/L (3.5-5.1); Total Protein 7.8 G/DL (6.4-8.3)
[2017-09-27] MEDS: INSULIN REGULAR 100 UNIT/ML SUBCUT SCH ×4 (07:56→22:42)
[2017-09-27] MEDS: METOPROLOL SUCCINATE XL 25 MG TABLET PO SCH ×2 (10:04→22:42)
[2017-09-27] MEDS: LUBIPROSTONE 8 MCG CAPSULE PO SCH ×2 (10:04→22:41)
[2017-09-27] MEDS: ASPIRIN 325 MG TABLET PO SCH (10:04)
[2017-09-27] MEDS: PANTOPRAZOLE 40 MG TABLET PO SCH (10:04)
[2017-09-27] MEDS: LEVOTHYROXINE 25 MCG TABLET PO SCH (10:04)
[2017-09-27] MEDS: LANSOPRAZOLE ODT 30 MG TABLET NG SCH (10:10)
[2017-09-27] MEDS: POTASSIUM CHLORIDE 20 MEQ TABLET PO PRN ×3 (11:05→14:49)
[2017-09-27] MEDS: PHENYLEPHRINE DRIP 40 MG/250 ML PREMIX IV SCH (14:41)
[2017-09-27 17:21] LABS: Folate > 24.0 NG/ML (5.4-24.0); Vitamin B12 > 2000 PG/ML (211-911)
[2017-09-27] MEDS: ISOSORBIDE MONONITRATE 30 MG TABLET PO SCH (22:42)
[2017-09-28] MEDS: ALBUTEROL/IPRATROPIUM 3 ML NEB RESP TX SCH ×4 (00:17→19:25)
[2017-09-28] MEDS: cefTRIAXone 1,000 MG in SYRINGE 1 EACH IV SCH (06:59)
[2017-09-28] MEDS: AZITHROMYCIN 250 MG TABLET PO SCH (06:59)
[2017-09-28] MEDS: INSULIN REGULAR 100 UNIT/ML SUBCUT SCH ×4 (07:31→21:40)
[2017-09-28 09:44] LABS: Basophils # 0.1 10*3/uL (0.0-0.2); Basophils % 0.6 % (0.0-0.8); Eosinophils # 0.1 10*3/uL (0.0-0.87); Eosinophils % 1.3 % (0.00-10.9); Hematocrit 37.2 VOL% (35.7-47.0); Hemoglobin 11.3 GM/DL (12.0-16.0); Immature Granulocytes % 0.6 %; Immature Granulocytes Absolute 0.06 #; Lymphocytes # 1.2 10*3/uL (1.4-4.0); Lymphocytes % 11.4 % (21.3-54.2); Mean Corpuscular HGB Conc 30.4 GM/DL (32-36); Mean Corpuscular Hemoglobin 30 PG (27-34); Mean Corpuscular Volume 98.4 FL (87-102); Mean Platelet Volume 11.9 FL (9.6-12.0); Monocytes # 1.8 10*3/uL (0.11-0.8); Monocytes % 17.7 % (1.7-12.7); NRBC # 0.25 10*3/uL; Neutrophils # 7.1 10*3/uL (1.4-7.4); Neutrophils % 68.4 % (38.7-73.9); Platelet Count 139 T/CUMM (130-400); Red Blood Count 3.78 MC/CUMM (3.8-5.5); White Blood Count 10.4 T/CUMM (4-12)
[2017-09-28 09:55] LABS: Calcium 9.1 MG/DL (8.5-10.1); Magnesium 2.5 MG/DL (1.8-2.4); Potassium 4.3 MMOL/L (3.5-5.1)
[2017-09-28 10:13] LABS: Eosinophils 2 % (0-10); Hypochromasia 1+; Lymphocytes 18 % (20-55); Nucleated Red Blood Cells 7 (0-5); Segmented Neutrophils 69 % (50-85); Total Cells Counted 100
[2017-09-28 10:14] LABS: Macrocytosis 1+; Platelet Estimate Adequate
[2017-09-28] MEDS: LACTULOSE 20 GM/30 ML UDCUP PO SCH (10:31)
[2017-09-28] MEDS: LEVOTHYROXINE 25 MCG TABLET PO SCH (10:32)
[2017-09-28] MEDS: METOPROLOL SUCCINATE XL 25 MG TABLET PO SCH ×2 (10:33→21:41)
[2017-09-28] MEDS: LANSOPRAZOLE ODT 30 MG TABLET NG SCH (10:33)
[2017-09-28] MEDS: ASPIRIN 325 MG TABLET PO SCH (10:33)
[2017-09-28] MEDS: LUBIPROSTONE 8 MCG CAPSULE PO SCH ×2 (10:33→21:40)
[2017-09-28 10:47] LABS: Rapid Plasma Reagin Confirm REACTIVE (Nonreactive)
[2017-09-28 12:20] LABS: Hepatitis A Ab IgM Quant 0.21 Index; Hepatitis A Ab IgM Result Negative (Negative); Hepatitis B Core IgM Quant 0.16 Index; Hepatitis B Core IgM Result Negative (Negative); Hepatitis B Surface Ag Quant < 0.10 Index; Hepatitis B Surface Ag Result Negative (Negative); Hepatitis C Virus Ab Result Negative (Negative)
[2017-09-28] MEDS: ISOSORBIDE MONONITRATE 30 MG TABLET PO SCH (21:40)
[2017-09-29] MEDS: ALBUTEROL/IPRATROPIUM 3 ML NEB RESP TX SCH ×4 (00:12→19:45)
[2017-09-29 06:24] LABS: Basophils # 0.1 10*3/uL (0.0-0.2); Basophils % 0.7 % (0.0-0.8); Eosinophils # 0.1 10*3/uL (0.0-0.87); Eosinophils % 1.4 % (0.00-10.9); Hematocrit 40.5 VOL% (35.7-47.0); Hemoglobin 12.7 GM/DL (12.0-16.0); Immature Granulocytes % 0.6 %; Immature Granulocytes Absolute 0.05 #; Lymphocytes # 0.9 10*3/uL (1.4-4.0); Lymphocytes % 10.5 % (21.3-54.2); Mean Corpuscular HGB Conc 31.4 GM/DL (32-36); Mean Corpuscular Hemoglobin 30 PG (27-34); Mean Corpuscular Volume 95.5 FL (87-102); Mean Platelet Volume 11.7 FL (9.6-12.0); Monocytes % 11.7 % (1.7-12.7); Neutrophils # 6.4 10*3/uL (1.4-7.4); Neutrophils % 75.1 % (38.7-73.9); Red Blood Count 4.24 MC/CUMM (3.8-5.5); Red Cell Distribution Width 19.2 % (9.3-17.3); White Blood Count 8.5 T/CUMM (4-12)
[2017-09-29] MEDS: cefTRIAXone 1,000 MG in SYRINGE 1 EACH IV SCH (06:32)
[2017-09-29] MEDS: AZITHROMYCIN 250 MG TABLET PO SCH (06:32)
[2017-09-29 06:46] LABS: Albumin 2.6 G/DL (3.4-5.0); Bilirubin,Total 1.8 MG/DL (0.2-1.0); Calcium 9.3 MG/DL (8.5-10.1); Osmolality,Calculated 275.7 MOS/KG (273-304); Potassium 3.9 MMOL/L (3.5-5.1); Total Protein 8.1 G/DL (6.4-8.3)
[2017-09-29 06:50] LABS: Platelet Count 104 T/CUMM (130-400)
[2017-09-29] MEDS: INSULIN REGULAR 100 UNIT/ML SUBCUT SCH ×4 (07:23→21:57)
[2017-09-29] MEDS: METOPROLOL SUCCINATE XL 25 MG TABLET PO SCH ×2 (09:10→21:17)
[2017-09-29] MEDS: LACTULOSE 20 GM/30 ML UDCUP PO SCH (09:10)
[2017-09-29] MEDS: LUBIPROSTONE 8 MCG CAPSULE PO SCH ×2 (09:10→21:17)
[2017-09-29] MEDS: LEVOTHYROXINE 25 MCG TABLET PO SCH (09:10)
[2017-09-29] MEDS: LANSOPRAZOLE ODT 30 MG TABLET NG SCH (09:10)
[2017-09-29] MEDS: ASPIRIN 325 MG TABLET PO SCH (09:10)
[2017-09-29] MEDS ORDERED: PHENYLEPHRINE DRIP 40 MG/250 ML PREMIX IV ONE (20:00)
[2017-09-29] MEDS: PHENYLEPHRINE DRIP 40 MG/250 ML PREMIX IV SCH (20:36)
[2017-09-29] MEDS: ISOSORBIDE MONONITRATE 30 MG TABLET PO SCH (21:17)
[2017-09-30] MEDS: ALBUTEROL/IPRATROPIUM 3 ML NEB RESP TX SCH ×4 (00:05→20:51)
[2017-09-30] MEDS: AZITHROMYCIN 250 MG TABLET PO SCH (06:42)
[2017-09-30] MEDS: cefTRIAXone 1,000 MG in SYRINGE 1 EACH IV SCH (06:42)
[2017-09-30] MEDS: LACTULOSE 20 GM/30 ML UDCUP PO SCH (08:39)
[2017-09-30] MEDS: METOPROLOL SUCCINATE XL 25 MG TABLET PO SCH (08:39)
[2017-09-30] MEDS: ASPIRIN 325 MG TABLET PO SCH (08:40)
[2017-09-30] MEDS: INSULIN REGULAR 100 UNIT/ML SUBCUT SCH ×2 (08:40→11:48)
[2017-09-30] MEDS: PHENYLEPHRINE DRIP 40 MG/250 ML PREMIX IV SCH (08:40)
[2017-09-30] MEDS: LEVOTHYROXINE 25 MCG TABLET PO SCH (08:40)
[2017-09-30] MEDS: LANSOPRAZOLE ODT 30 MG TABLET NG SCH (08:40)
[2017-09-30] MEDS: LUBIPROSTONE 8 MCG CAPSULE PO SCH (08:40)
[2017-09-30] MEDS ORDERED: CLOPIDOGREL 75 MG TABLET PO SCH (09:00)
[2017-09-30 09:14] LABS: Basophils # 0.1 10*3/uL (0.0-0.2); Basophils % 0.5 % (0.0-0.8); Eosinophils # 0.1 10*3/uL (0.0-0.87); Eosinophils % 1.1 % (0.00-10.9); Hemoglobin 11.7 GM/DL (12.0-16.0); Immature Granulocytes % 0.6 %; Immature Granulocytes Absolute 0.07 #; Lymphocytes # 0.8 10*3/uL (1.4-4.0); Lymphocytes % 7.3 % (21.3-54.2); Mean Corpuscular HGB Conc 30.8 GM/DL (32-36); Mean Corpuscular Hemoglobin 30 PG (27-34); Mean Corpuscular Volume 96.9 FL (87-102); Mean Platelet Volume 12.2 FL (9.6-12.0); Monocytes # 1.3 10*3/uL (0.11-0.8); Monocytes % 11.6 % (1.7-12.7); NRBC # 0.72 10*3/uL; Neutrophils % 78.9 % (38.7-73.9); Platelet Count 105 T/CUMM (130-400); Red Blood Count 3.92 MC/CUMM (3.8-5.5); Red Cell Distribution Width 19.9 % (9.3-17.3); White Blood Count 11.5 T/CUMM (4-12)
[2017-09-30 09:30] LABS: Potassium 4.2 MMOL/L (3.5-5.1)
[2017-09-30 09:32] LABS: Calcium 9.1 MG/DL (8.5-10.1); Osmolality,Calculated 283.8 MOS/KG (273-304)
[2017-09-30 09:41] LABS: Magnesium 2.4 MG/DL (1.8-2.4); Prealbumin 3.9 MG/DL (20-40)
[2017-09-30 09:44] LABS: Giant Platelets Few; Hypochromasia 1+; Platelet Estimate Decreased
[2017-09-30 09:45] LABS: Macrocytosis Slight
[2017-09-30] MEDS ORDERED: LEVOTHYROXINE 50 MCG TABLET PO SCH (10:28)
[2017-09-30] MEDS ORDERED: SKIN HEALING OINT (AQUAPHOR) 50 GM TUBE TOP PRN (10:44)
[2017-09-30 10:52] LABS: Folate 20.6 NG/ML (5.4-24.0); Vitamin B12 > 2000 PG/ML (211-911)
[2017-10-01 01:21] VITALS: BP 77/39
[2017-10-01] MEDS: ALBUTEROL/IPRATROPIUM 3 ML NEB RESP TX SCH (01:48)
== END 2017-10-01 01:50 | disposition expired | DRG 291 ==
LOC: EDUNIT# → EDBD → N.ED 02:54 → SUATTDRO 06:22 → N.EDINP 06:22 → N.2E 06:56 → N.CVR 11:10 → N.ICU 20:17 → N.2E 09-30 14:47
PROVIDERS: ADMIT Internal Medicine; ATTEND Internal Medicine